=== PATIENT | male | born 1940 | race Caucasian/White ===

== ENCOUNTER 2022-04-10 21:43 | Inpatient (IN) ==
[2022-04-10 22:24] LABS: Basophils # (auto) 0.08 K/uL (0-0.2); Eosinophils # (auto) 0.38 K/uL (0-0.50); Eosinophils % (auto) 4.9 %; Hematocrit (blood only) 45.6 % (40.1-51.0); Hemoglobin 14.9 g/dl (14.0-18.0); Immature Granulocytes # (auto) 0.03 K/uL (0.00-0.02); Immature Granulocytes % (auto) 0.4 %; Lymphocytes # (auto) 1.11 K/uL (1.2-3.4); Lymphocytes % (auto) 14.2 %; Mean Corpuscular Hemoglobin 28.5 pg (25.0-34.0); Mean Corpuscular Hgb Conc 32.7 g/dL (32.0-36.0); Mean Corpuscular Volume 87.4 fL (80.0-100.0); Mean Platelet Volume 10.4 fL (9.4-12.4); Monocytes % (auto) 16.6 %; Neutrophils # (auto) 4.92 K/uL (1.4-6.5); Neutrophils % (auto) 62.9 %; Platelet Count 246 K/uL (130-400); RDW Standard Deviation 44.8 fL (36.4-46.3); Red Blood Count 5.22 M/uL (4.63-6.08); White Blood Count 7.82 K/ul (4.8-10.8)
[2022-04-10 22:34] LABS: Prothrombin Time 10.6 Seconds (9.0-12.0)
[2022-04-10 22:49] LABS: Albumin Globulin Ratio 1.4 (0.9-2); Albumin Level 4.2 gm/dl (3.4-5.0); BUN Creatinine Ratio 19.5 (10-20); Bilirubin,Total 0.5 mg/dl (0.2-1.0); Calcium 9.3 mg/dl (8.5-10.1); Creatinine Clr Calc Pharmacy 42.2 ml/min; Est GFR (African American) 61.3 ml/min; Est GFR (Non-African American) 52.9 ml/min; Globulin 3.1 gm/dl (2.5-4.0); Potassium 3.6 mmol/L (3.5-5.1); Total Protein 7.3 gm/dl (6.0-8.3)
--- NOTE | 2022-04-10 23:15 | Emergency Department Note ---
History of Present Illness General Chief complaint: Abdominal Pain Stated complaint: ABDOMINAL PAIN STEMMING UP TO CHEST Time Seen by Provider: 04/10/22 23:01 Source: patient Mode of arrival: ambulatory Limitations: no limitations History of Present Illness Provider complaint: abdominal pain Onset (ago): hour(s) 3 Radiation: extremity and proximal Maximum Pain Intensity: 2 Exacerbated By: + movement Associated symptoms: + shortness of breath Treatments prior to arrival: aspirin This is a 81-year-old male presents emergency department due to concern for abdominal pain. Patient states he was carrying a bench at his house and developed upper abdominal pain that seem to radiate upwards into his chest and into the left shoulder. Patient states he took an aspirin as a precaution and sat down and eventually the pain began to subside. He states pain has been intermittent since its onset but has not completely gone away. Patient denied nausea, vomiting, dizziness, or sweating. Patient states he does have a history of shortness of breath particular with exertion and did feel winded during this episode also. Patient does have prior cardiac history and doing including prior SD and placement of 2 coronary artery stents. No recent change in medications. Patient states he is supposed to be taking a low-dose aspirin daily but does not. No other use of antiplatelet or anticoagulation therapy. He denies any recent fevers, chills, cough, or other illness. States he recently abraded his left lower extremity, and he does have mild chronic b/l lower extremity edema. Pt seen during a time of high acuity and national emergency pandemic while wearing PPE. Home Medications Medication Instructions Recorded Confirmed Type amlodipine 10 mg tablet 10 mg PO DAILY 04/10/22 04/10/22 History atorvastatin 20 mg tablet 20 mg PO DAILY 04/10/22 04/10/22 History benazepril 20 mg tablet 20 mg PO DAILY 04/10/22 04/10/22 History calcium carbonate 200 mg calcium 400 mg PO DIRECTED PRN 04/10/22 04/10/22 History (500 mg) chewable tablet (Tums) HALL'S SYNDROME/HEARTBURN/INDIGESTION Allergies Allergy/AdvReac Type Severity Reaction Status Date / Time Penicillins Allergy Intermediate HANDS Verified 04/10/22 23:28 BECAME ITCHY Past Med/Surg History Medical History (Updated 04/12/22 @ 03:34 by Lynn Gallegos DO) AAA (abdominal aortic aneurysm) CAD (coronary atherosclerotic disease) History not obtained Hyperlipidemia Hypertension Myocardial infarct Surgical History (Updated 04/11/22 @ 08:34 by Haylie Herrmann DO) Status post vascular surgery Family History Other No family history of disorders Social History Smoking Status: Never smoker Tobacco Type: Cigarettes Hx Alcohol Use: Yes Alcohol type: wine Hx Substance Use: No Preferred Language: Mohawk Communication Ability: Effective Tray Delivery Aide Required: No Beliefs That Will Affect Care: None Current Living Situation: Spouse Feels Safe at Home: Yes Assistive Devices: None Review of Systems A total of 10 systems reviewed and were otherwise negative All systems reviewed & are unremarkable except as noted in HPI & below Physical Exam Vital Signs Vital Signs - 24 hr 04/10/22 21:49 04/10/22 23:33 04/11/22 00:00 Temperature 36.7 C Temperature Source Temporal Artery Scan Pulse Rate 77 80 85 Pulse Rate from SpO2 Sensor 70 62 Respiratory Rate 16 23 26 H Respiratory Effort / Characteristics Non-Labored Spontaneous Respiratory Depth Normal Blood Pressure 160/66 H Blood Pressure Mean 97 Pulse Oximetry 95 94 92 Oxygen Delivery Method Room Air Sepsis Recent Fever Within 48 Hours No Sepsis New/Unexplained Change in Mental Status No Sepsis Action Taken by Nursing No Action Required 04/11/22 00:10 04/11/22 00:10 04/11/22 00:30 Temperature Temperature Source Pulse Rate 82 76 Pulse Rate from SpO2 Sensor 68 73 Respiratory Rate 24 27 H Respiratory Effort / Characteristics Respiratory Depth Blood Pressure 154/83 H Blood Pressure Mean 106 Pulse Oximetry 91 91 Oxygen Delivery Method Sepsis Recent Fever Within 48 Hours Sepsis New/Unexplained Change in Mental Status Sepsis Action Taken by Nursing 04/11/22 01:03 04/11/22 01:30 Temperature Temperature Source Pulse Rate 78 74 Pulse Rate from SpO2 Sensor 78 73 Respiratory Rate 20 Respiratory Effort / Characteristics Respiratory Depth Blood Pressure Blood Pressure Mean Pulse Oximetry 93 94 Oxygen Delivery Method Sepsis Recent Fever Within 48 Hours Sepsis New/Unexplained Change in Mental Status Sepsis Action Taken by Nursing GENERAL: alert, well appearing, well nourished, no distress, non-toxic EYE EXAM: normal conjunctiva, PERRL and EOM's grossly intact OROPHARYNX: no exudate, no erythema, lips, buccal mucosa, and tongue normal and mucous membranes are moist NECK: supple, no nuchal rigidity, no adenopathy, non-tender LUNGS: Clear to auscultation. Normal chest wall mechanics, no w/r/r HEART: no murmurs, S1 normal and S2 normal, no reproducible chest wall tenderness ABDOMEN: abdomen soft, non-tender, normo-active bowel sounds, no masses, no re bound or guarding. BACK: Back is symmetrical on inspection and there is no deformity, no midline te nderness, no CVA tenderness. SKIN: no rashes and no bruising UPPER EXTREMITIES: upper extremities are grossly normal. FROM, nml pulses b/l. LOWER EXTREMITIES: No pitting edema. FROM, nml pulses b/l. NEURO EXAM: Normal sensorium, cranial nerves II-XII grossly intact, normal speech, no gross weakness of arms, no gross weakness of legs. Gross sensation intact. Course Course 0014: Case discussed with Dr. Herrmann for admission. No pain or discomfort at this time. Patient made aware of all results. Repeat EKG was performed and Nitropaste applied. Second troponin pending. 0115: Repeat troponin significantly elevated with the patient also found to be COVID-positive. Patient with no current symptoms or complaints. Will send for CT as a precaution due to significant vascular history and now accompanying COVID-positive status. 0232: A CODE BLUE was called overhead and I went to the room emergently. Patient with agonal respiration initial weak pulse. Patient however became less responsive, pulses were lost. BVM assisted ventilations were started and I placed an oral airway to help until additional airway intervention could be secured. CPR started, pads placed, and patient defibrillated. 1 round of ep inephrine given. Just prior to amio being given patient opened eyes, was trying to speak, and had palpable pulse and appeared to be in a normal sinus rhythm on telemetry. Oral airway removed, patient placed on supplemental oxygen and he was allowed to sit up. Patient moving all extremities and answering questions. No adventitious lung sounds on exam. Results of the CT were still pending at at time. Stat read contacted given critical nature. CTA of the chest was negative and Dr. Edgardo Shelton of interventional cardiology was contacted. Upon discussing patient's evolving symptoms and risk factors, a code heart was activated. Administered Medications Aspirin (Aspirin 81 Mg Ectab) 81 mg PO QAM [facility] Stop: 05/11/22 08:59 Last Admin: 04/11/22 07:40 Dose: 81 mg Documented By: KELVIN Atorvastatin Calcium (Atorvastatin 40 Mg Tab) 40 mg PO QAM [facility] Stop: 05/11/22 08:59 Last Admin: 04/11/22 07:40 Dose: 40 mg Documented By: KELVIN Guaifenesin (Guaifenesin 600 Mg Tabcr) 600 mg PO Q12 [facility] Stop: 05/11/22 20:59 Last Admin: 04/11/22 21:11 Dose: 600 mg Documented By: AKANKSHA Metoprolol Tartrate (Metoprolol Tartrate 25 Mg Tab) 12.5 mg PO BID [facility] Stop: 05/11/22 08:59 Last Admin: 04/11/22 20:08 Dose: 12.5 mg Documented By: Admin: 04/11/22 07:40 Dose: 12.5 mg Documented By: KELVIN Discontinued Medications Clopidogrel Bisulfate (Clopidogrel Bisulfate 300 Mg Tab) Confirm Administered Dose 600 mg .ROUTE .STK-MED ONE Stop: 04/11/22 04:10 Last Admin: 04/11/22 04:21 Dose: 600 mg Documented By: KARINA Fentanyl Citrate (Fentanyl Citrate 100 Mcg/2 Ml Vial) Confirm Administered Dose 100 mcg .ROUTE .STK-MED ONE Stop: 04/11/22 03:07 Last Admin: 04/11/22 04:19 Dose: 25 mcg Documented By: KARINA Heparin Sodium (Porcine) (Heparin Sod (Porcine) 1000 Unit/Ml) 1 units IV NOW ONE Stop: 04/11/22 03:04 Last Admin: 04/11/22 04:03 Dose: Not Given Documented By: KARINA Heparin Sodium (Porcine) (Heparin (Porcine) 1000 Unit/Ml 10 Ml ([facility] Use Only)) Confirm Administered Dose 10,000 units .ROUTE .STK-MED ONE Stop: 04/11/22 03:07 Last Admin: 04/11/22 04:19 Dose: 10,000 units Documented By: KARINA Heparin Sodium/Sodium Chloride (Heparin In Nss Infusion 1000 Unit/500 Ml (2 U/Ml) Bag) Confirm Administered Dose 3,000 units IV .STK-MED ONE Stop: 04/11/22 03:07 Last Admin: 04/11/22 04:02 Dose: 3,000 units Documented By: KEISHA Heparin Sodium/Dextrose (Heparin Sodium/Dextrose) 25,000 units in 500 mls @ 0.02 mls/hr IV .Q24H FABIAN; Protocol Stop: 05/11/22 03:14 Last Admin: 04/11/22 04:03 Dose: Not Given Documented By: KARINA Sodium Chloride (Nss 1000ml) 1,000 mls @ 100 mls/hr IV .Q10H FABIAN Stop: 04/11/22 09:44 Last Infusion: 04/11/22 15:30 Dose: 0 mls/hr Documented By: Admin: 04/11/22 05:26 Dose: 100 mls/hr Documented By: ALICJA Magnesium Sulfate/Dextrose (Magnesium Sulfate / D5w) 1 gm in 100 mls @ 50 mls/hr IV ONE ONE Stop: 04/11/22 06:48 Last Infusion: 04/11/22 08:10 Dose: 0 mls/hr Documented By: Admin: 04/11/22 05:27 Dose: 50 mls/hr Documented By: ALICJA Potassium Chloride (K Tristin / Wtr) 10 meq in 100 mls @ 100 mls/hr IV Q1H FABIAN; Protocol Stop: 04/11/22 06:59 Last Infusion: 04/11/22 09:40 Dose: 0 mls/hr Documented By: Admin: 04/11/22 07:24 Dose: 50 mls/hr Documented By: Infusion: 04/11/22 07:14 Dose: 50 mls/hr Documented By: Infusion: 04/11/22 05:38 Dose: 50 mls/hr Documented By: Admin: 04/11/22 05:26 Dose: 100 mls/hr Documented By: ALICJA Ioversol (Optiray 320 125ml) 125 ml IV ONCE ONE Stop: 04/11/22 01:59 Last Admin: 04/11/22 01:58 Dose: 118 ml Documented By: RUTHY Midazolam HCl (Midazolam Hcl 1 Mg/Ml 2ml Vial) Confirm Administered Dose 2 mg .ROUTE .STK-MED ONE Stop: 04/11/22 03:07 Last Admin: 04/11/22 04:19 Dose: 1 mg Documented By: KARINA Miscellaneous (Rapid Sequence Induction Bag) Confirm Administered Dose 1 each .ROUTE .STK-MED ONE Stop: 04/11/22 03:28 Last Admin: 04/11/22 04:20 Dose: Not Given Documented By: KML Nicardipine HCl (Nicardipine Hcl Inj 2.5 Mg/Ml 10 Ml Amp) Confirm Administered Dose 25 mg .ROUTE .STK-MED ONE Stop: 04/11/22 03:07 Last Admin: 04/11/22 04:02 Dose: 25 mg Documented By: KEISHA Nitroglycerin (Nitroglycerin 2% Ointment 30gm Tube) 1 inch EXT NOW STA Stop: 04/11/22 00:01 Last Admin: 04/11/22 00:08 Dose: 1 inch Documented By: LEESA Nitroglycerin/Dextrose (Nitroglycerin/D5w 100mcg/Ml 20ml Syr) Confirm Administered Dose 2,000 mcg .ROUTE .STK-MED ONE Stop: 04/11/22 03:07 Last Admin: 04/11/22 04:02 Dose: 2,000 mcg Documented By: KEISHA Critical Care Time Critical Care Time: Yes Total Critical Care Time: 68 Critical care of 68 min performed to assess and manage high likelihood of life- threatening , involving labs and imaging performed with assessment to evaluate XX diagnosis] with frequent reassessment. This time includes bedside time, treatment discussions with patient/family/consultants, documentation time and excludes procedure time. Medical Decision Making Differential Diagnosis Differential diagnoses includes but is not limited to gastritis, peptic ulcer disease, GERD, gallbladder disease, pancreatitis, small bowel obstruction, acute coronary syndrome, pericarditis, ischemic bowel, irritable bowel disease, irritable bowel syndrome, appendicitis, diverticulitis, malignancy, hernia, urinary tract infection, torsion, [/ectopic (if female)], perforation, trauma, infectious. Medical Records Attestation: I reviewed the patient's medical records. Home Medications Current Medication List: was personally reviewed by me Laboratory Data Attestation: I reviewed the patient's lab results. Result diagrams: 04/11/22 07:23 04/11/22 07:23 Lab Results 04/10/22 04/10/22 04/10/22 Range/Units 22:02 22:02 22:02 WBC 7.82 (4.8-10.8) K/ul RBC 5.22 (4.63-6.08) M/uL Hgb 14.9 (14.0-18.0) g/dl Hct 45.6 (40.1-51.0) % MCV 87.4 (80.0-100.0) fL MCH 28.5 (25.0-34.0) pg MCHC 32.7 (32.0-36.0) g/dL RDW Std Deviation 44.8 (36.4-46.3) fL RDW Coeff of [place] 14.0 (11.5-14.5) % Plt Count 246 (130-400) K/uL MPV 10.4 (9.4-12.4) fL Immature Gran % (Auto) 0.4 % Neut % (Auto) 62.9 % Lymph % (Auto) 14.2 % [place] % (Auto) 16.6 % Eos % (Auto) 4.9 % Baso % (Auto) 1.0 % Neut # (Auto) 4.92 (1.4-6.5) K/uL Lymph # (Auto) 1.11 L (1.2-3.4) K/uL [place] # (Auto) 1.30 H (0.24-0.82) K/uL Eos # (Auto) 0.38 (0-0.50) K/uL Baso # (Auto) 0.08 (0-0.2) K/uL Immature Gran # (Auto) 0.03 H (0.00-0.02) K/uL PT 10.6 (9.0-12.0) Seconds INR 1.0 (0.9-1.1) Sodium 139 (136-145) mmol/L Potassium 3.6 (3.5-5.1) mmol/L Chloride 106 (98-107) mmol/L Carbon Dioxide 23 (21-32) mmol/L Anion Gap 10 (3-11) BUN 25 H (6-23) mg/dl Creatinine 1.28 (0.6-1.4) mg/dl Est Cr Clr Drug Dosing 42.2 ml/min Est GFR ( Amer) 61.3 ml/min Est GFR (Non-Af Amer) 52.9 ml/min BUN/Creatinine Ratio 19.5 (10-20) Glucose 109 H (70-99(Fasting)) mg/dl Calcium 9.3 (8.5-10.1) mg/dl Magnesium (1.7-2.4) mg/dl Total Bilirubin 0.5 (0.2-1.0) mg/dl AST 37 (13-39) U/L ALT 39 (7-52) U/L Alkaline Phosphatase 78 (34-104) U/L Troponin I High Sens 105.0 H* (0-20) pg/ml Total Protein 7.3 (6.0-8.3) gm/dl Albumin 4.2 (3.4-5.0) gm/dl Globulin 3.1 (2.5-4.0) gm/dl Albumin/Globulin Ratio 1.4 (0.9-2) Lipase 30 (11-82) U/L SARS-CoV-2, RNA, NAAT (NEGATIVE) 04/10/22 04/11/22 04/11/22 Range/Units 22:02 00:00 00:05 WBC (4.8-10.8) K/ul RBC (4.63-6.08) M/uL Hgb (14.0-18.0) g/dl Hct (40.1-51.0) % MCV (80.0-100.0) fL MCH (25.0-34.0) pg MCHC (32.0-36.0) g/dL RDW Std Deviation (36.4-46.3) fL RDW Coeff of [place] (11.5-14.5) % Plt Count (130-400) K/uL MPV (9.4-12.4) fL Immature Gran % (Auto) % Neut % (Auto) % Lymph % (Auto) % [place] % (Auto) % Eos % (Auto) % Baso % (Auto) % Neut # (Auto) (1.4-6.5) K/uL Lymph # (Auto) (1.2-3.4) K/uL [place] # (Auto) (0.24-0.82) K/uL Eos # (Auto) (0-0.50) K/uL Baso # (Auto) (0-0.2) K/uL Immature Gran # (Auto) (0.00-0.02) K/uL PT (9.0-12.0) Seconds INR (0.9-1.1) Sodium (136-145) mmol/L Potassium (3.5-5.1) mmol/L Chloride (98-107) mmol/L Carbon Dioxide (21-32) mmol/L Anion Gap (3-11) BUN (6-23) mg/dl Creatinine (0.6-1.4) mg/dl Est Cr Clr Drug Dosing ml/min Est GFR ( Amer) ml/min Est GFR (Non-Af Amer) ml/min BUN/Creatinine Ratio (10-20) Glucose (70-99(Fasting)) mg/dl Calcium (8.5-10.1) mg/dl Magnesium 1.9 (1.7-2.4) mg/dl Total Bilirubin (0.2-1.0) mg/dl AST (13-39) U/L ALT (7-52) U/L Alkaline Phosphatase (34-104) U/L Troponin I High Sens 1460.6 H* D (0-20) pg/ml Total Protein (6.0-8.3) gm/dl Albumin (3.4-5.0) gm/dl Globulin (2.5-4.0) gm/dl Albumin/Globulin Ratio (0.9-2) Lipase (11-82) U/L SARS-CoV-2, RNA, NAAT POSITIVE A* (NEGATIVE) Imaging Data My Impression: X-ray: I interpreted the following studies. Chest: A single view study of the chest was reviewed and was negative for cardiomegaly, focal infiltrate, effusion, pulmonary edema, or wide mediastinum. Radiologist's Impression: Chest X-Ray 04/10/22 22:04 XR chest 1V portable HISTORY: epigastric pain COMPARISON: None. FINDINGS: Mild emphysema. Interstitial thickening at the lung bases likely represents vascular crowding from the emphysematous change. No focal lung consolidations to suggest pneumonia. No evidence for pulmonary edema. The heart is normal in size. This mildly tortuous thoracic aorta. IMPRESSION: Emphysema. Otherwise, no acute process within the chest. ACT 112: Negative or not required by law. Electronically signed by: Pola Davis M.D. 04/11/2022 8:10 AM CTA chest: No pulmonary artery filling defects to suggest pulmonary artery thrombosis. No thoracic aortic aneurysm or dissection is present. Atherosclerotic aortic and coronary artery calcifications. Heart is mildly enlarged. No evidence for right heart strain. No pericardial fluid or thickening. Mild bilateral dependent atelectasis. Diffuse emphysematous changes. No definite lobar pneumonia. No pleural effusion or pneumothorax. Subcentimeter mediastinal lymph nodes. No acute fractures identified. Degenerative changes of thoracic spine. Radiologist: Sedrick Xie MD CT abdomen and pelvis with contrast: No prior study available. Status post abdominal aortic aneurysm repair with a infrarenal aortic stent extending to both common iliac arteries. Abdominal aort a and iliac arteries are patent without evidence for occlusion or dissection. No significant stenosis. No evidence for rupture or extravasation. The celiac, superior mesenteric artery and bilateral renal arteries are grossly patent although this is not a CT angiogram. Inferior mesenteric artery is not well characterized. Mild atherosclerotic vascular calcifications. No bowel obstruction or ileus. Nonspecific abnormal caliber fluid-filled small bowel with few air-fluid levels and mild wall thickening, possibly a mild enteritis. Nonobstructing proximal sigmoid colon containing left inguinal hernia without proximal dilatation. No evidence for appendicitis. Few colonic diverticuli without evidence for diverticulitis. No free fluid. No free intraperitoneal gas. No evidence for portal venous gas. Liver is unremarkable. Gallbladder is unremarkable and without gallstones. No evidence for biliary ductal dilatation. Pancreas is unremarkable. Spleen is unremarkable. No obstructive uropathy. Right kidney is atrophic. Renal vascular calcifications. Probable right urinary bladder diverticulum. Urinary bladder otherwise unremarkable. Prostate gland is normal in size. Spine degenerative changes. Radiologist: Sedrick Xie MD ECG Data Attestation: I personally reviewed and interpreted this ECG as follows: Indication: + chest pain Rate (beats per minute): 90 Rhythm: + normal sinus ECG Intervals/blocks: + Normal QRS and + Normal QT ECG [place]: + Left axis deviation ECG ST segments: + Nonspecific ST abnormalities ECG Findings: + PVCs MDM Narrative An order was placed for continuous cardiac monitoring. The monitor shows a rate of _62__ with _normal sinus__ rhythm. This is a 81-year-old male who presents emergency room due to concern for abdominal pain that began while he was lifting a bench. Symptoms had resolved by time of arrival. Family who presents with him was concerned for possible heart related issue given his prior history of SD and 2 stents. Patient also has vascular history and repair of prior AAA. Patient who presented on day of high volume and acuity and protocols were placed by nursing staff in the waiting room. Upon the troponin resulting elevated, he was immediately brought back to the next open bed. Patient had aspirin at home prior to coming to the ER. He was afebrile and hemodynamically stable. EKG was unremarkable. There were no other priors available for comparison as patient is from out of town. Patient did have a recurrent episode of abdominal pain and a repeat EKG was performed. This did not show any acute changes. Pain resolved with application of nitro. Patient's other labs are reassuring and he was admitted to the hospitalist. Repeat trop added as a precaution and patient sent for CT imaging due to significant vascular history. While awaiting results of CT, patient became unresponsive. Weak pulse initially detected then no pulse and CPR/ACLS was started. On patient placed on monitor, patient noted to be in V. fib. He was defibrillated once, given epi. I placed an oral airway and RT helped with assisted ventilations with a BVM. Patient then began to breathe spontaneously and move. Recheck on the monitor showed an organized rhythm and a palpable pulse. Compressions were stopped. Blood pressure cuff cycled. Repeat EKG pe rformed and patient sat up and began talking and seemed neurologically intact. He denied any recurrent abdominal pain, denied chest pain, denied any trouble breathing. Repeat vitals were stable. At this point Case was discussed with on-call interventional cardiology, Dr. Shelton, who agreed with plan for heart alert activation. Patient remained stable until cath team and Dr. Shelton arrived. Patient transported to the [facility] for intervention. Impression & Plan Abdominal pain, Elevated troponin, Cardiac arrest with ventricular fibrillation Discharge Plan Visit Data Chief Complaint: Abdominal Pain Stated Complaint: ABDOMINAL PAIN STEMMING UP TO CHEST ED Provider: Lynn Gallegos Discharge Problem: Abdominal pain, Elevated troponin, Cardiac arrest with ventricular fibrillation Patient Disposition: Admitted As Inpatient Discharge Instructions Interventions: ED Discharge Assessment Last Done: 04/11/22 02:19
[2022-04-11] MEDS ORDERED: NITROGLYCERIN 2% OINTMENT 30GM TUBE EXT STA
[2022-04-11] MEDS ORDERED: OPTIRAY 320 125ml IV ONE (01:58)
[2022-04-11] MEDS ORDERED: POLYETHYLENE (MIRALAX) 17 GM PACK PO PRN (02:15)
[2022-04-11] MEDS ORDERED: ACETAMINOPHEN 325 MG TAB PO PRN (02:15)
[2022-04-11] MEDS ORDERED: Heparin IV Adult Wt-Based Low-Dose WITH Bolus Protocol STA (02:48)
--- NOTE | 2022-04-11 02:54 | History & Physical Report ---
Date of Service April 11, 2022 Assessment & Plan (1) Ventricular fibrillation: Plan: 2/2 ACS. Taken to labor commissioner and found to have a 100% moderate mid right PDA occlusion. A single drug-eluting stent was placed. Sent to ICU for continued monitoring and trend troponin until peak. Echocardiogram in a.m. Loaded with clopidogrel 600 mg in [place]p [place] and continue dual antiplatelet therapy for at least 1 year. Beta-jaun was started and titrate as blood pressure allows. (2) ACS (acute coronary syndrome): Plan: Plan as above (3) Cardiac arrest: Plan: CODE BLUE while in the ER after patient went into ventricular fibrillation. He received 1 shock and amiodarone 150 mg. He was placed on BiPAP and heart alert was initiated. (4) COVID: Plan: Asymptomatic and this is an incidental finding. No indication for COVID- specific therapies at this time. Continue isolation. (5) Hypertension: Plan: Hold amlodipine and Benzepril for now and add back slowly. Start metoprolol tartrate per cardiology. (6) Hyperlipidemia: Plan: Continue risk factor modification, Lipitor 20 increased to 40 mg daily. (7) DVT prophylaxis: Plan: Lovenox Full Dispo-pending cardiology clearance. Currently in the ICU. Haylie Herrmann DO [facility] Admission and Anticipated Discharge Date Admission Date: April 11, 2022 History of Present Illness Chief Complaint: abdominal pain Primary Care Provider: NO PCP 81 yo M presented with abdominal discomfort. He was carrying a bench at his home and developed upper abdominal pain that radiated upwards into his chest and to the left shoulder. He took an aspirin as a precaution and rested with the pain subsiding. Intermittent chest pain reported. Denied associated symptoms except did have some shortness of breath. Has a history of CAD with two cardiac stents. Noncompliant with prescribed aspirin. In the ER, initial troponin was 105 with repeat going to 1460. EKG revealed SR with frequent PVCs aat a rate of 92 bpm. There were ?q waves in inferior leads but no ST elevation. A CT angio of the chest was performed and negative for PE, pneumonia or fluid with no TAA or dissection. Atherosclerotic disease in aorta and coronaries was seen. There were subcm mediastinal lymph nodes present and he is COVID positive. While in the ER, he went into vfib arrest and required defibrillation and CPR, achieving ROSC after a few minutes. A heart alert was called and he is going to the labor commissioner. With the activity of the night, I was unable to speak with him and gather information. Historical information was gathered from the record and the ER physician. Family is also extremely upset and unable to give a history at this time. I saw him post procedure and he is doing well, recovering in the ICU. Mental status is clear. He denies any chest pain or SOB. No abdominal pain or other issues at this time. Lives in [place], [place] for most of the year. Allergies Allergy/AdvReac Type Severity Reaction Status Date / Time Penicillins Allergy Intermediate HANDS Verified 04/10/22 23:28 BECAME ITCHY Home Medications Medication Instructions Recorded Confirmed Type amlodipine 10 mg tablet 10 mg PO DAILY 04/10/22 04/10/22 History atorvastatin 20 mg tablet 20 mg PO DAILY 04/10/22 04/10/22 History benazepril 20 mg tablet 20 mg PO DAILY 04/10/22 04/10/22 History calcium carbonate 200 mg calcium 400 mg PO DIRECTED PRN 04/10/22 04/10/22 History (500 mg) chewable tablet (Tums) HALL'S SYNDROME/HEARTBURN/INDIGESTION Past Med/Surg History Medical History AAA (abdominal aortic aneurysm) CAD (coronary atherosclerotic disease) History not obtained Hyperlipidemia Hypertension Myocardial infarct Surgical History (Updated 04/11/22 @ 08:34 by Haylie Herrmann DO) Status post vascular surgery Family History Other No family history of disorders Social History Smoking Status: Former smoker Tobacco Type: Cigarettes Hx Alcohol Use: Yes Alcohol type: wine Hx Substance Use: No Preferred Language: Bulgarian Communication Ability: Effective 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 Physical Exam Physical Exam: CONSTITUTIONAL: WNWD, vitals as above, generally well- appearing, NAD EYES: normal conjunctivae, no scleral icterus ENT: external ear and nose normal, MMM NECK: trachea midline RESPIRATORY: clear to auscultation bilaterally, no crackles, rales or wheezes, normal respiratory effort CARDIOVASCULAR: regular rate and rhythm, S1 and 2 heard without murmurs, gallops or rubs, no JVD, no peripheral edema, CHEST: inspection of chest was normal GASTROINTESTINAL: soft, nontender, ND, no guarding MUSCULOSKELETAL: strength 5/5 throughout, head is normocephalic and atraumatic, SKIN: warm and dry, TR band on right wrist. warm and well perfused NEUROLOGIC: CN 2-12 grossly intact, no sensory deficit, normal cognition, normal speech, no tremor PSYCHIATRIC: alert cooperative and oriented to person, place and time. Results & Data Results & Data ([facility]) Vital Signs (Past 12 Hours) Vital Signs Temp Pulse Resp BP Pulse Ox O2 Del Method 04/11/22 02:15 68 25 H 91 04/11/22 02:15 68 20 127/74 94 04/11/22 02:00 67 29 H 93 04/11/22 01:30 74 94 04/11/22 02:19 Room Air 04/11/22 01:03 78 20 93 04/11/22 00:30 76 27 H 91 04/11/22 00:10 154/83 H 04/11/22 00:10 82 24 91 04/11/22 00:00 85 26 H 92 04/10/22 23:33 80 23 94 04/10/22 21:49 36.7 C 77 16 160/66 H 95 Room Air Laboratory Results Short CBC 04/10/22 Range/Units 22:02 WBC 7.82 (4.8-10.8) K/ul Hgb 14.9 (14.0-18.0) g/dl Hct 45.6 (40.1-51.0) % Plt Count 246 (130-400) K/uL BMP 04/10/22 22:02 Sodium 139 Potassium 3.6 Chloride 106 Carbon Dioxide 23 BUN 25 H Creatinine 1.28 Glucose 109 H Calcium 9.3 Liver Function 04/10/22 Range/Units 22:02 Total Bilirubin 0.5 (0.2-1.0) mg/dl AST 37 (13-39) U/L ALT 39 (7-52) U/L Alkaline Phosphatase 78 (34-104) U/L Albumin 4.2 (3.4-5.0) gm/dl Medications Administered Current Inpatient Medications Acetaminophen (Acetaminophen 325 Mg Tab) 650 mg PO Q4H PRN PRN Reason: Pain or Fever Stop: 05/11/22 02:14 Heparin Sodium (Porcine) (Heparin Sod (Porcine) 1000 Unit/Ml) 1 units IV NOW ONE Stop: 04/11/22 03:04 Heparin Sodium/Dextrose (Heparin Iv Adult Wt-Based Low-Dose With Bolus Protocol) each N/A NOW STA; Protocol Stop: 04/11/22 02:49 Heparin Sodium/Dextrose (Heparin Sodium/Dextrose) 25,000 units in 500 mls @ 0.02 mls/hr IV .Q24H FABIAN; Protocol Stop: 05/11/22 03:14 Polyethylene Glycol (Polyethylene (Miralax) 17 Gm Pack) 17 gm PO DAILY PRN PRN Reason: Constipation Stop: 05/11/22 02:14 Code Status & VTE Plan VTE Prophylaxis Plan VTE Prophylaxis will be ordered: Yes
[2022-04-11] MEDS ORDERED: HEPARIN SOD (PORCINE) 1000 UNIT/ML IV ONE (03:03)
[2022-04-11] MEDS ORDERED: fentaNYL citrate 100 MCG/2 ML VIAL ONE (03:06)
[2022-04-11] MEDS ORDERED: HEPARIN (PORCINE) 1000 UNIT/ML 10 ML (CATH LAB USE ONLY) ONE (03:06)
[2022-04-11] MEDS ORDERED: NITROGLYCERIN/D5W 100MCG/ML 20ML SYR ONE (03:06)
[2022-04-11] MEDS ORDERED: MIDAZOLAM HCL 1 MG/ML 2ML VIAL ONE (03:06)
[2022-04-11] MEDS ORDERED: niCARdipine HCL INJ 2.5 MG/ML 10 ML AMP ONE (03:06)
[2022-04-11] MEDS ORDERED: HEPARIN SODIUM/DEXTROSE 25,000 UNITS/500 ML BAG IV SCH (03:15)
--- NOTE | 2022-04-11 03:21 | Pre Anesthesia Assessment ---
Date of Service April 11, 2022 Pre Sedation Assessment Vital Signs Temp Pulse Resp BP Pulse Ox O2 Del Method FiO2 04/11/22 02:39 73 25 H 99 100 04/11/22 02:15 68 25 H 91 04/11/22 02:15 68 20 127/74 94 04/11/22 02:00 67 29 H 93 04/11/22 01:30 74 94 04/11/22 02:19 Room Air 04/11/22 01:03 78 20 93 04/11/22 00:30 76 27 H 91 04/11/22 00:10 154/83 H 04/11/22 00:10 82 24 91 04/11/22 00:00 85 26 H 92 04/10/22 23:33 80 23 94 04/10/22 21:49 98.1 F 77 16 160/66 H 95 Room Air Cardiovascular RRR, no murmur, no edema Respiratory normal respiratory effort, lungs clear to auscultation Pre-Sedation Airway Assessment Smoking Status: Former smoker Hx Sleep Apnea: No Hx Difficult Intubation: No Short, Thick Neck: No Thyromental Distance: > or= 3.5 Finger Breadths Oral Cavity: + WNL Mallampati Class: III ASA: ASA4 Procedure Planning Contraindications for Sedation: none Current Medications Reviewed: Yes Notes The planned sedation has been discussed with the patient. Informed Consent was obtained. I have identified the patient, determined the appropriateness of sedation and have assessed the patient immediately prior to the procedure. All medicine(s) and interventions are by my order.
[2022-04-11] MEDS ORDERED: RAPID SEQUENCE INDUCTION BAG ONE (03:27)
--- NOTE | 2022-04-11 03:28 | Cardiology Consultation ---
Date of Consultation April 11, 2022 Assessment & Plan (1) ACS (acute coronary syndrome): Plan Presentation concerning for high risk ACS complicated by brief VF arrest and recommend proceeding with urgent cardiac catheterization and possible PCI. No apparent contraindications to procedure. Discussed risks, benefits, alternatives of procedure with patient and they are willing to proceed. Further recommendations pending findings of coronary angiography. History of Present Illness Attending Physician: Haylie Herrmann DO History of Present Illness 81-year-old man here with exertional chest pain and suspected ACS. Patient seen emergently in the ED after heart alert activated following VF arrest in ED. Past cardiac history remarkable for coronary artery disease post PCI with 2 remote stents in [place] (>10 years ago). Cardiac risk factors include hypertension, dyslipidemia. Also with history of AAA post EVAR. Patient lives majority of time in [place]. Up spending adkins in the area. Today had new stuttering exertional chest pain prompting him to come to the ED around 10 PM. Initial ECG showed sinus rhythm with PVCs, possible old inferior infarct without ST abnormalities. Initial HsTrop 100, second up to 1400. COVID test positive. Approximately 2:20 AM patient endorsed feeling dizzy before going into VF. Received CPR and single shock before ROSC. Given single dose of amiodarone and placed on BiPAP. Post arrest ECG showed sinus rhythm with occasional PVCs and inferior ST elevations as well as subtle ST elevations in V2 through V5. Postarrest patient chest pain-free and feeling at baseline. Allergies Allergy/AdvReac Type Severity Reaction Status Date / Time Penicillins Allergy Intermediate HANDS Verified 04/10/22 23:28 BECAME ITCHY Home Medications Medication Instructions Recorded Confirmed Type amlodipine 10 mg tablet 10 mg PO DAILY 04/10/22 04/10/22 History atorvastatin 20 mg tablet 20 mg PO DAILY 04/10/22 04/10/22 History benazepril 20 mg tablet 20 mg PO DAILY 04/10/22 04/10/22 History calcium carbonate 200 mg calcium 400 mg PO DIRECTED PRN 04/10/22 04/10/22 History (500 mg) chewable tablet (Tums) HALL'S SYNDROME/HEARTBURN/INDIGESTION Patient History Medical History (Updated 04/11/22 @ 02:52 by Haylie Herrmann DO) AAA (abdominal aortic aneurysm) CAD (coronary atherosclerotic disease) History not obtained Hyperlipidemia Hypertension Myocardial infarct Social History Smoking Status: Former smoker Tobacco Type: Cigarettes Feels Safe at Home: Yes Review of Systems Review of Systems: All systems reviewed & are unremarkable except as noted in HPI & below Physical Exam Physical Exam: General: Comfortable HEENT: Sclerae anicteric Lungs: Clear to auscultation bilaterally, no crackles or wheezes Cardiac: Regular rate and rhythm, no murmurs. Vascular: 2+ radial Abdomen: Soft, nontender Extremities: Well perfused, no peripheral edema Neuro: Nonfocal Psych: Alert orient x3, normal affect and mood Results & Data ([facility]) Vital Signs (Past 12 Hours) Vital Signs Temp Pulse Resp BP Pulse Ox O2 Del Method FiO2 04/11/22 02:39 73 25 H 99 100 04/11/22 02:15 68 25 H 91 04/11/22 02:15 68 20 127/74 94 04/11/22 02:00 67 29 H 93 04/11/22 01:30 74 94 04/11/22 02:19 Room Air 04/11/22 01:03 78 20 93 04/11/22 00:30 76 27 H 91 04/11/22 00:10 154/83 H 04/11/22 00:10 82 24 91 04/11/22 00:00 85 26 H 92 04/10/22 23:33 80 23 94 04/10/22 21:49 98.1 F 77 16 160/66 H 95 Room Air PG Care Time/CCT Total # of Minutes Spent Total Time Spent with Patient: Total time spent is greater than 50% in coordination of care (as documented) at patient's floor/unit and/or counseling patient: Coding Level of Care Code 61445 Initial Inpt Care Lvl 3 Diagnoses ACS (acute coronary syndrome) I24.9
[2022-04-11] MEDS ORDERED: CLOPIDOGREL BISULFATE 300 MG TAB ONE (04:09)
--- NOTE | 2022-04-11 04:36 | Post Anesthesia Assessment ---
Date of Service April 11, 2022 Post Sedation Assessment Vital Signs Temp Pulse Resp BP Pulse Ox O2 Del Method FiO2 04/11/22 03:00 64 26 H 99 04/11/22 02:56 100/68 04/11/22 02:56 67 24 04/11/22 02:30 87 04/11/22 02:39 73 25 H 99 100 04/11/22 02:15 68 25 H 91 04/11/22 02:15 68 20 127/74 94 04/11/22 02:00 67 29 H 93 04/11/22 01:30 74 94 04/11/22 02:19 Room Air 04/11/22 01:03 78 20 93 04/11/22 00:30 76 27 H 91 04/11/22 00:10 154/83 H 04/11/22 00:10 82 24 91 04/11/22 00:00 85 26 H 92 04/10/22 23:33 80 23 94 04/10/22 21:49 98.1 F 77 16 160/66 H 95 Room Air Recovery Score Activity: Moves 4 extremities Respiration: Deep Breath/Cough Circulation: +/-20% PreAnes Value Consciousness: Fully Awake Oxygen Saturation: O2 needed for >90% Discharge Sedation Level of Care: Fast Track Phase II Post Sedation Plan On clinical assessment, the patient appears to have tolerated the sedation without complications. Patient is recovering as anticipated. Patient will continue to be monitored by nursing and may be discharged when sedation discharge criteria are met per below protocol. Upon Completions of procedure up to 15 minutes continue every 5 minute vital signs and the P.A.R. score; then discharge to a Phase I or Fast Track to Phase II per the following guidelines: * Discharge Patient to appropriate Phase II area if PAR is 8 or greater or return to pre- procedure baseline. The post - procedure orders will be as directed. * If PAR score is less than 8 or not return to pre-procedure baseline then patient will follow Phase I monitoring till PAR is reached for Phase II. The Phase I may be done in procedure room or may call to secure a Phase I area. * If naloxone or flumazenil are used for reversal, hold in Phase I for continued monitoring from when last reversal dose was given for a minimum of 60 minutes or longer pending the nurse and/or physician discretion of patient condition before discharge to Phase II. Please call the Sedation Physician to re-evaluate and complete post-note for discharge to Phase II area. Do NOT discharge from procedure sedation or Phase 1 until post- sedation evaluation note is complete by procedure /sedation MD Sedation Discharge Instructions to be given to the patient at discharge to home.
[2022-04-11] MEDS ORDERED: SODIUM CHLORIDE 0.9% 1000ML 1,000 ML IV SCH (04:45)
[2022-04-11] MEDS ORDERED: MAGNESIUM SULFATE / D5W 1 GM/100 ML BAG IV ONE (04:49)
--- NOTE | 2022-04-11 04:49 | Cardiac Catheterization ---
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 Cardiac Status Clinical evaluation leading to the procedure CAD Presenation: STEMI Anginal Classification: CCS IV Diagnostic Physicians Name: Delano Shelton MD Closure Device Recommendations: PCI without planned CABG Cardiac Cath Procedure Full Procedure Date April 11, 2022 Pre-Procedure Diagnosis Pre-Procedure Diagnosis: STEMI and Arrhythmia AUC Score AUC Score: 9 Post-Procedure Diagnosis Post-Procedure Diagnosis: Severe CAD, Successful PCI and Normal Intracardiac Pressures Procedure(s) Performed Procedure(s) Performed: Coronary Angiography, Left Heart Cath and Drug Eluting Stent Parts Chaser Delano Shelton MD Grease Packer(s) Cotton Jammer Estimated Blood Loss Estimated Blood Loss: 10 Medication(s) Medication(s): Clopidogrel, Fentanyl, Heparin, Lidocaine 1%, Nicardipine and Versed Summary of Findings Indication: High risk ACS. VF arrest in ED with ROSC after defibrillation x1 Access: 6 Fr right radial artery Catheters: Carroll, JR4 guide Findings: LM -calcified, normal caliber, 20% ostial stenosis LAD -medium caliber, 40% earlymid extending across takeoff of small D2. Remainder of LAD without significant disease. 30% proximal large D1, medium D3 without disease. Circumflex -medium caliber, no significant disease. Medium OM 2 without disease. RCA -dominant, large caliber vessel, heavily calcified, patent proximal stent with 40-50% stenosis in earlymid RCA. Medium RPDA 50% ostial with ROEL I flow and mid 100% occlusion. Posterior AV branch, large bifurcating distal PLB without significant disease. LVEDP -15 -- PCI -- Antithrombotic therapy: Heparin, clopidogrel Procedure: RCA cannulated with JR4 guide Pre-procedure flow ROEL 0 in distal PDA Mid Level Clinician 50 wire passed across PDA lesion into distal vessel Mid PDA lesion predilated with 2.0 compliant balloon Dilated lesion stented with 2.25 x 15 mm Osvaldo drug-eluting stent Stent post-dilated with stent balloon IC vasodilators administered for spasm Post procedure ROEL 3 flow, stent well expanded with minimal residual stenosis and no apparent cardiac complications. Arterial Closure: TR band Summary: 1. Acute 100% mid right PDA occlusion 2. Mild to moderate nonculprit CAD -Patent proximal RCA stent, 40-50% earlymid RCA, 50% ostial RPDA 40% mid LAD, 30% proximal large D1 2. Normal intracardiac filling pressure 3. Successful PCI of mid RPDA with single drug-eluting stent (2.25 x 15 mm [place]). Recommendations: To ICU for continued monitoring Trend troponin until peak, echocardiogram in a.m. 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 Hemodynamics Rest Ao:: 78/48/70 Final Ao: 99/54/72 LV: 85/15 Recommendations Recommendations: PCI without planned CABG Specimens Specimens: None Radiation Exposure (mGy) 1962 Contrast (mls) 70 Anesthesia Moderate 5595-2118 Procedural Complication(s) None Disposition ICU I attest to the content of the Intraoperative Record and any orders documented therein. Any exceptions are noted below. [facility] Card Cath Procedure Codes Cardiac Catheterization Procedure 1: Cardiovascular Cath Procedures: 38118 Coronaries and LHC (+/-LV) Moderate Sedation Procedure 1: Sedation/Anesthesia: 01880 Mod Sedation by the same physician;Init15 Min Child Age 5 & Up Procedure 2: Sedation/Anesthesia: 93761 Mod Sedation by the same physician; Ea [id number] Minutes Stenting Procedure 1: Cardiovascular Stent Procedures: 56111 Perc transluminal revascularization of acute sub/total occl, aMI PG Care Time/CCT Total # of Minutes Spent Total Time Spent with Patient: Total time spent is greater than 50% in coordination of care (as documented) at patient's floor/unit and/or counseling patient:
[2022-04-11] MEDS: POTASSIUM CHLORIDE / WTR 10 MEQ/100 ML PLCT IV SCH ×2 (05:26→07:24)
--- NOTE | 2022-04-11 06:11 | Critical Care Consultation ---
Date of Consultation April 11, 2022 Assessment & Plan (1) Cardiac arrest: Reason Critically Ill: 81-year-old male presents to the ICU following ACS with V. fib cardiac arrest in which ROSC was achieved with defibrillation and CPR. He is now status post PCI with WALLACE x1 to [facility] Neuro - CAM ICU: Negative No evidence of anoxic deficit following cardiac arrest Cardiac - Cardiac arrestROSC achieved with 1 round CPR and defibrillation. Patient awoke after ROSC was achieved and did not require intubation. Currently hemodynamically stable. Repleting electrolytes. ACS likely culprit for V. fib. Continue to monitor on telemetry for now ACS/CADstatus post successful PCI of mid RPDA with WALLACE x1 -History of OH with stent x2 approximately 10 years ago -Admitted to ICU for further monitoring -Follow-up echo -Trend troponins repeat -Loaded with clopidogrel -ASA, Plavix, BB -Follow cardiology recommendations Respiratory - Currently maintaining oxygen saturation on nasal cannula. Was temporarily on BiPAP following cardiac arrest but now weaned. Continuous monitoring on pulse ox. Wean oxygen as tolerated GI - Heart healthy diet RENAL/LYTES - Creatinine within normal limit. Monitor routine BMPs and replete electrolytes as indicated -strict I's and O's ENDO - No history of diabetes or thyroid disease ICU hyperglycemic protocol HEME - H&H stable monitor routine CBCs ID - No indication for infectious process at this time Patient did test positive for COVID on PCR but claims symptoms started 4 weeks ago. Was unaware he was positive. -No evidence of active disease at this time. We will keep on precautions for now and monitor LINES/IV ACCESS - Peripheral IVs DVT PROPHYLAXIS - SCDs I have personally spent 40 minutes of critical care time in the direct management of this patient. This is a life/limb threatening event. This includes time spent evaluating patient, direct bedside care, chart review, placing orders, interpretation of diagnostic studies, discussion with consultants, patient, and family members, as well as other required patient management activities. This time is exclusive of all separately billable procedures, and teaching time and separate from and in addition to any other critical care service time. Thank you for allowing us to participate in the care of this patient. Please refer to my attending physician's documentation for any further recommendations. (2) COVID: (3) Hypertension: (4) Hyperlipidemia: (5) DVT prophylaxis: (6) ACS (acute coronary syndrome): (7) Ventricular fibrillation: (8) CAD (coronary atherosclerotic disease): Plan Patient is status post And is stable at this time. No vasopressor requirements. Minimal oxygen support. Incidentally discovered to have COVID-19 on PCR testing. Asymptomatic. Continue usual post cath care and ASCVD evidence-based treatment protocol. Echo reviewed with an LVEF of 36%. Grade 1 diastolic dysfunction. Moderate aortic valve sclerosis. Patient stable for downgrade. History of Present Illness Attending Physician: Haylie Herrmann DO History of Present Illness Patient is a 81-year-old male with past medical history AAA, CAD (2), HLD, HTN who presented to the emergency department earlier this evening with complaints of upper abdominal pain with radiation to the left shoulder. Patient stated that he took an aspirin and rested and pain subsided for a while. He did report some shortness of breath at the time. CTA negative for PE or AAA dissection. In the emergency department patient had V. fib arrest and required defibrillation and CPR achieving ROSC after few minutes. Patient did awaken and was speaking after ROSC and did not require intubation. He was noted to have EKG changes and elevated troponin and heart alert was initiated given patient's history as well. In the [facility] [employer] he was found to have 100% acute occlusion of the mid right PDA and underwent successful PCI of mid right PDA with WALLACE x1. Patient now being admitted to ICU for further management this time. On arrival to the ICU the patient is alert and oriented and hemodynamically stable. He is maintaining oxygen saturation on nasal cannula and appears comfortable at rest. Patient reports that abdominal pain has improved and is no longer radiating to his shoulder. He did test positive for COVID-19 on PCR. Patient states that he has had a cough for the past few weeks which has recently improved as of yesterday. He currently denies headache, dizziness, syncope, sore throat, congestion, shortness of breath, fevers, palpitations, chest pain, nausea or vomiting or diarrhea, changes in gait, or swelling in hands and feet. Allergies Allergy/AdvReac Type Severity Reaction Status Date / Time Penicillins Allergy Intermediate HANDS Verified 04/10/22 23:28 BECAME ITCHY Home Medications Medication Instructions Recorded Confirmed Type amlodipine 10 mg tablet 10 mg PO DAILY 04/10/22 04/10/22 History atorvastatin 20 mg tablet 20 mg PO DAILY 04/10/22 04/10/22 History benazepril 20 mg tablet 20 mg PO DAILY 04/10/22 04/10/22 History calcium carbonate 200 mg calcium 400 mg PO DIRECTED PRN 04/10/22 04/10/22 History (500 mg) chewable tablet (Tums) HALL'S SYNDROME/HEARTBURN/INDIGESTION Patient History Medical History (Updated 04/11/22 @ 11:13 by Andres Morton DO) AAA (abdominal aortic aneurysm) CAD (coronary atherosclerotic disease) History not obtained Hyperlipidemia Hypertension Myocardial infarct Surgical History (Updated 04/11/22 @ 08:34 by Haylie Herrmann DO) Status post vascular surgery Family History Other No family history of disorders Social History Smoking Status: Former smoker Tobacco Type: Cigarettes Hx Alcohol Use: Yes Alcohol type: wine Hx Substance Use: No Preferred Language: Swedish Communication Ability: Effective 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 Beliefs That Will Affect Care: None Current Living Situation: Spouse Feels Safe at Home: Yes Review of Systems Review of Systems: All systems reviewed & are unremarkable except as noted in HPI & below Physical Exam Constitutional: WD/WN, vitals as above Eyes: PERRL, conjunctivae normal, anicteric sclerae ENMT: external ear and nose normal, oropharynx normal Neck: trachea midline, no thyromegaly Respiratory: normal respiratory effort, lungs clear to auscultation Cardiovascular: RRR, no murmur, no edema Heart Sounds: normal S1 and normal S2; no murmur Extremities: no edema Gastrointestinal (Abdomen): normal bowel sounds, soft, nontender, no hepatosplenomegaly Musculoskeletal: no cyanosis or clubbing, extremities motor strength 5/5 Skin: no rashes, warm and dry Neurologic: PERRL, EOMI, accommodation nl, no face palsy, no dysarthria Psychiatric: A+Ox3, euthymic affect Results & Data Results & Data ([facility]) Vital Signs (Past 12 Hours) Vital Signs Temp Pulse Pulse Resp BP BP Pulse Ox 04/11/22 05:00 66 26 H 115/77 95 04/11/22 05:11 04/11/22 05:06 36.4 C L 68 21 128/62 97 04/11/22 03:00 64 26 H 99 04/11/22 02:56 100/68 04/11/22 02:56 67 24 04/11/22 02:30 87 04/11/22 02:39 73 25 H 99 04/11/22 02:15 68 25 H 91 04/11/22 02:15 68 20 127/74 94 04/11/22 02:00 67 29 H 93 04/11/22 01:30 74 94 04/11/22 02:19 04/11/22 01:03 78 20 93 04/11/22 00:30 76 27 H 91 04/11/22 00:10 154/83 H 04/11/22 00:10 82 24 91 04/11/22 00:00 85 26 H 92 04/10/22 23:33 80 23 94 04/10/22 21:49 36.7 C 77 16 160/66 H 95 O2 Del Method O2 Flow Rate FiO2 04/11/22 05:00 Room Air 04/11/22 05:11 Nasal Cannula 3 04/11/22 05:06 Nasal Cannula 3 04/11/22 03:00 04/11/22 02:56 04/11/22 02:56 04/11/22 02:30 04/11/22 02:39 100 04/11/22 02:15 04/11/22 02:15 04/11/22 02:00 04/11/22 01:30 04/11/22 02:19 Room Air 04/11/22 01:03 04/11/22 00:30 04/11/22 00:10 04/11/22 00:10 04/11/22 00:00 04/10/22 23:33 04/10/22 21:49 Room Air Coding Level of Care Code Critical Care 1st 30-74 mins Diagnoses Cardiac arrest I46.9 COVID U07.1 Hypertension I10 Hyperlipidemia E78.5 DVT prophylaxis Z29.9 ACS (acute coronary syndrome) I24.9 Ventricular fibrillation I49.01 CAD (coronary atherosclerotic disease) I25.10
[2022-04-11] MEDS: METOPROLOL TARTRATE 25 MG TAB PO SCH ×2 (07:40→20:08)
[2022-04-11] MEDS: ATORVASTATIN 40 MG TAB PO SCH (07:40)
[2022-04-11] MEDS: ASPIRIN 81 MG ECTAB PO SCH (07:40)
[2022-04-11 07:46] LABS: Basophils # (auto) 0.05 K/uL (0-0.2); Basophils % (auto) 0.5 %; Eosinophils # (auto) 0.07 K/uL (0-0.50); Eosinophils % (auto) 0.8 %; Hematocrit (blood only) 41.9 % (40.1-51.0); Hemoglobin 13.8 g/dl (14.0-18.0); Immature Granulocytes # (auto) 0.03 K/uL (0.00-0.02); Immature Granulocytes % (auto) 0.3 %; Lymphocytes # (auto) 0.87 K/uL (1.2-3.4); Lymphocytes % (auto) 9.3 %; Mean Corpuscular Hemoglobin 28.8 pg (25.0-34.0); Mean Corpuscular Hgb Conc 32.9 g/dL (32.0-36.0); Mean Corpuscular Volume 87.5 fL (80.0-100.0); Mean Platelet Volume 10.7 fL (9.4-12.4); Monocytes # (auto) 1.36 K/uL (0.24-0.82); Monocytes % (auto) 14.6 %; Neutrophils # (auto) 6.95 K/uL (1.4-6.5); Neutrophils % (auto) 74.5 %; Platelet Count 221 K/uL (130-400); RDW Standard Deviation 45.3 fL (36.4-46.3); Red Blood Count 4.79 M/uL (4.63-6.08); White Blood Count 9.33 K/ul (4.8-10.8)
--- NOTE | 2022-04-11 08:11 | XRay Report ---
XR chest 1V portable HISTORY: epigastric pain COMPARISON: None. FINDINGS: Mild emphysema. Interstitial thickening at the lung bases likely represents vascular crowdi ng from the emphysematous change. No focal lung consolidations to suggest pneumonia. No evidence for pulmonary edema. The heart is normal in size. This mildly tortuous thoracic aorta. IMPRESSION: Emphysema. Otherwise, no acute process within the chest. ACT 112: Negative or not required by law. Electronically signed by: Pola Davis M.D. 04/11/2022 8:10 AM
[2022-04-11 08:14] LABS: BUN Creatinine Ratio 21.6 (10-20); Calcium 8.5 mg/dl (8.5-10.1); Creatinine Clr Calc Pharmacy 55.7 ml/min; Est GFR (African American) 85.7 ml/min; Est GFR (Non-African American) 73.9 ml/min; Potassium 3.8 mmol/L (3.5-5.1)
--- NOTE | 2022-04-11 08:33 | Cardiology Consultation ---
Date of Consultation April 11, 2022 Assessment & Plan (1) ACS (acute coronary syndrome): (2) Cardiac arrest: (3) CAD (coronary atherosclerotic disease): (4) Hyperlipidemia: (5) Hypertension: (6) COVID: (7) AAA (abdominal aortic aneurysm): (8) Right ventricular dysfunction: Plan Mr. Morgan is status post inferior non-STEMI complicated by V. fib arrest 2D echocardiogram reveals moderately reduced LV systolic function with an EF of 36% along with reduced RV systolic function. Status post PCI to the RPDA Currently symptom-free. Complex ventricular ectopy has now resolved. Continue aspirin, Plavix, atorvastatin and metoprolol Will require 24-hour monitoring in the ICU followed by 48-hour monitoring on telemetry. LifeVest is not indicated given that his EF is greater than 35% Given RV involvement would avoid any decrease in preload History of Present Illness Reason for Consultation: NSTEMI and cardiac arrest Requesting Physician: MAINE Attending Physician: Yoel Singleton MD History of Present Illness It was my pleasure to see Mr. Morgan in cardiac consultation today April 11, 2022. He is a very pleasant 81-year-old gentleman who was previously following with Dr. Cartagena of our cardiology practice. He presented to [facility] in the evening of 04/10/2022 with complaints of abdominal pain. The patient states that he was moving a heavy bench at home when he suddenly developed severe mid epigastric pain. He described it as severe pressure/stabbing sensation but denied any associated chest pain, shortness of breath, diaphoresis, palpitations or lightheadedness. His and daughter encouraged him to come to the emergency department. Upon arrival the patient had a ventricular fibrillation arrest but was successfully revived without the need for intubation. He was then taken emergently to the cardiac catheter ization lab where a culprit RPDA lesion was intervened upon. He was then transferred to the intensive care unit. Upon arrival, he was having a significant PVC burden including short salvos and persistent runs of ventricular tachycardia but they have now resolved. Currently, he states he feels great. He states his abdominal pain has resolved after the catheterization and again he denies any chest pain or shortness of breath. He states that this presentation was different to his previous heart attack at which time he had chest heaviness. Allergies Allergy/AdvReac Type Severity Reaction Status Date / Time Penicillins Allergy Intermediate HANDS Verified 04/10/22 23:28 BECAME ITCHY Home Medications Medication Instructions Recorded Confirmed Type amlodipine 10 mg tablet 10 mg PO DAILY 04/10/22 04/10/22 History atorvastatin 20 mg tablet 20 mg PO DAILY 04/10/22 04/10/22 History benazepril 20 mg tablet 20 mg PO DAILY 04/10/22 04/10/22 History calcium carbonate 200 mg calcium 400 mg PO DIRECTED PRN 04/10/22 04/10/22 History (500 mg) chewable tablet (Tums) HALL'S SYNDROME/HEARTBURN/INDIGESTION Patient History Medical History (Updated 04/11/22 @ 11:13 by Andres Morton DO) AAA (abdominal aortic aneurysm) CAD (coronary atherosclerotic disease) History not obtained Hyperlipidemia Hypertension Myocardial infarct Surgical History (Updated 04/11/22 @ 08:34 by Haylie Herrmann DO) Status post vascular surgery Family History Other No family history of disorders Social History Smoking Status: Former smoker Tobacco Type: Cigarettes Hx Alcohol Use: Yes Alcohol type: wine Hx Substance Use: No Preferred Language: Pashto Communication Ability: Effective 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 No acute distress. HEENT: Normocephalic, atraumatic. Pupils equal, round and reactive to light and accommodation. Extraocular muscles are intact. Anicteric sclera. Moist mucous membranes. Neck: No JVD. No bruit. Cardiovascular: Regular. Positive S-4. Normal S-1 and S-2. No S-3. 3/6 mid to late systolic ejection murmur, greatest at the right sternal border, second intercostal space with radiation to the bilateral carotids. No rubs. Pulmonary: Clear to auscultation bilaterally. No rales, rhonchi, or wheezing. Abdomen: Bowel sounds x 4, soft. No rebound, guarding or tenderness. No organomegaly. Extremities: No clubbing, cyanosis or edema. +2 pedal pulses bilaterally. Skin: Warm and dry. Results & Data ([facility]) Vital Signs (Past 12 Hours) Vital Signs Temp Pulse Pulse Resp BP BP Pulse Ox 04/11/22 08:15 57 L 13 95 04/11/22 08:00 68 21 95 04/11/22 08:00 133/69 04/11/22 07:45 72 21 94 04/11/22 07:30 71 20 94 04/11/22 07:15 76 21 95 04/11/22 07:00 70 21 95 04/11/22 07:00 130/76 04/11/22 07:58 04/11/22 06:30 64 21 127/64 97 04/11/22 06:35 36.6 C 04/11/22 06:00 66 20 129/67 98 04/11/22 05:30 66 25 H 130/64 98 04/11/22 05:30 130/64 04/11/22 05:00 66 26 H 115/77 95 04/11/22 05:11 04/11/22 05:06 36.4 C L 68 21 128/62 97 04/11/22 03:00 64 26 H 99 04/11/22 02:56 100/68 04/11/22 02:56 67 24 04/11/22 02:30 87 04/11/22 02:39 73 25 H 99 04/11/22 02:15 68 25 H 91 04/11/22 02:15 68 20 127/74 94 04/11/22 02:00 67 29 H 93 04/11/22 01:30 74 94 04/11/22 02:19 04/11/22 01:03 78 20 93 04/11/22 00:30 76 27 H 91 04/11/22 00:10 154/83 H 04/11/22 00:10 82 24 91 04/11/22 00:00 85 26 H 92 04/10/22 23:33 80 23 94 04/10/22 21:49 36.7 C 77 16 160/66 H 95 O2 Del Method O2 Flow Rate FiO2 04/11/22 08:15 Nasal Cannula 2 04/11/22 08:00 04/11/22 08:00 04/11/22 07:45 04/11/22 07:30 04/11/22 07:15 04/11/22 07:00 04/11/22 07:00 04/11/22 07:58 Nasal Cannula 2 04/11/22 06:30 Nasal Cannula 3 04/11/22 06:35 04/11/22 06:00 Nasal Cannula 3 04/11/22 05:30 Nasal Cannula 3 04/11/22 05:30 04/11/22 05:00 Room Air 04/11/22 05:11 Nasal Cannula 3 04/11/22 05:06 Nasal Cannula 3 04/11/22 03:00 04/11/22 02:56 04/11/22 02:56 04/11/22 02:30 04/11/22 02:39 100 04/11/22 02:15 04/11/22 02:15 04/11/22 02:00 04/11/22 01:30 04/11/22 02:19 Room Air 04/11/22 01:03 04/11/22 00:30 04/11/22 00:10 04/11/22 00:10 04/11/22 00:00 04/10/22 23:33 04/10/22 21:49 Room Air
--- NOTE | 2022-04-11 09:19 | CT Scan Report ---
ABDOMEN AND PELVIS CT WITH IV CONTRAST CT DOSE: 815.18 mGy.cm HISTORY: upper abd pain, hx AAA repair TECHNIQUE: Multiaxial CT images of the abdomen and pelvis were performed following the use of intrave nous contrast. A dose lowering technique was utilized adhering to the principles of ALARA. COMPARISON STUDY: None. FINDINGS: Please refer to the same day chest CTA for further evaluation of the lung bases. No pneumop eritoneum. No pneumatosis. 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 Modera te degenerative disc disease throughout the lumbar spine and mild S-shaped scoliosis. Small fat-conta ining umbilical hernia. A small left inguinal hernia containing a short segment of the proximal sigmo id colon. The liver, gallbladder, pancreas, spleen, adrenal glands are unremarkable. There is a mildl y atrophic right kidney. No ureteral stones. No hydronephrosis. There are few subcentimeter hypodense lesions within the left kidney which are technically too small to characterize. The main portal vein is patent. Status post aortobiiliac stent graft repair of an abdominal aortic aneurysm. The aneurysm sac measures 3.8 x 3.8 cm. There is suggestion of a small endoleak within the anterior aspect of the distal aneurysm sac best in image 190. There is a small right posterior bladder diverticulum. No estiven dder wall thickening. No pelvic free fluid. The prostate gland is enlarged. Colonic diverticulosis. N o evidence for acute diverticulitis. No bowel wall thickening or obstruction. Normal appendix. Modera te stool within the colon. IMPRESSION: 1. No bowel wall thickening or obstruction. 2. Colonic diverticulosis. No evidence for acute diverticulitis. 3. Status post aortobiiliac stent graft repair of abdominal aortic aneurysm. The aneurysm sac measure s 3.8 x 3.8 cm. There is suggestion of a small endoleak within the anterior aspect of the aneurysm sa c. Follow-up dedicated abdominal CTA with and without intravenous contrast can be performed for furth er evaluation on a nonemergent basis. 4. Small left inguinal hernia containing a short segment of the colon. 5. Additional findings as described above. ACT 112: Positive. There are findings on this exam that require communication between the performing entity and the patient following Patient Test Result Information Act ([place] Act 112) guidelines. Electronically signed by: Pola Davis M.D. 04/11/2022 9:17 AM
--- NOTE | 2022-04-11 09:25 | CT Scan Report ---
CHEST CTA for PULMONARY ARTERIES CT DOSE: HISTORY: Epigastric pain. Shortness of breath. TECHNIQUE: Multiaxial CT images of the chest were performed following the intravenous administration of contrast to evaluate the pulmonary arteries. Maximal intensity projection images were also obtaine d. A dose lowering technique was utilized adhering to the principles of ALARA. COMPARISON STUDY: None. FINDINGS: Moderate calcified plaque within the normal caliber thoracic aorta. No evidence for an aort ic dissection. Severe calcified plaque within the coronary arteries. The heart is top normal in size. No pleural or pericardial effusions. No filling defects within the pulmonary arteries to suggest a p ulmonary embolus. The thyroid gland enhances normally. Normal caliber esophagus. No fractures within the visualized osseous structures. No pneumothorax. The central airways are patent. Moderate emphysem a. Mild bronchial wall thickening. A few partially opacified distal left lower lobe bronchi. Punctate calcified granuloma within the left lower lobe. No focal lung consolidations to suggest pneumonia. A few prominent mediastinal and bilateral hilar lymph nodes with the largest measuring 12 mm in short axis diameter. IMPRESSION: 1. No evidence for pulmonary embolus. 2. Mild emphysema 3. No focal lung consolidations to suggest pneumonia. 4. Borderline enlarged mediastinal and bilateral hilar lymph nodes. Six-month to one year chest CT fo llow-up can be performed to ensure stability. ACT 112: Negative or not required by law. Electronically signed by: Pola Davis M.D. 04/11/2022 9:23 AM
--- NOTE | 2022-04-11 16:38 | Hospitalist Progress Note ---
Date of Service April 11, 2022 Assessment & Plan (1) Ventricular fibrillation: Plan: 2/2 ACS. Taken to lab associate and found to have a 100% moderate mid right PDA occlusion. A single drug-eluting stent was placed. Sent to ICU for continued monitoring and trend troponin until peak. Echocardiogram in a.m. 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 Beta-jaun was started and titrate as blood pressure allows. NSTEMI V fib Arrest s/p PCI- Stent to PDA stable overall continue ASA, Plavix, Lipitor, Metoprolol (2) ACS (acute coronary syndrome): Plan: Plan as above (3) Cardiac arrest: Plan: CODE BLUE while in the ER after patient went into ventricular fibrillation. He received 1 shock and amiodarone 150 mg. He was placed on BiPAP and heart alert was initiated. (4) COVID: Plan: Asymptomatic and this is an incidental finding. No indication for COVID- specific therapies at this time. Continue isolation. 04/[address] chest no pneumonia continue to monitor COVID isolation (5) Hypertension: Plan: Hold amlodipine and Benzepril for now and add back slowly. Start metoprolol tartrate per cardiology. (6) Hyperlipidemia: Plan: Continue risk factor modification, Lipitor 20 increased to 40 mg daily. (7) DVT prophylaxis: Plan: Lovenox Full Dispo-pending cardiology clearance. Currently in the ICU. Admission and Anticipated Discharge Date Admission Date: April 11, 2022 Subjective ff up for NSTEMI, V fib arrest, COVID infection, etc seen resting in chair, comfortable oriented x 3, not in distress states he feels much better overall chest pain resolved no chest pain, dyspnea, palpitations, dizziness no cough, fever/chills, myalgias, arthralgias has usual post nasal drip no other symptoms Review of Systems Review of Systems: all noted and negative except for above Physical Exam Physical Exam: General- oriented x 3, not in distress, speaks in sentences with no effort or accessory muscle use Head- atraumatic Eyes- PERRL, EOMI, anicteric ENT- oropharynx clear Neck- supple, no JVD, no adenopathy, no thyromegaly; carotids +2/2, no bruits appreciated Lungs- clear to auscultation bilaterally, no rales/wheezes Heart- normal rate, regular rhythm; no murmur, no gallop, no rub appreciated Abdomen- normal bowel sounds, nondistended, soft, nontender, no masses or hepatosplenomegaly Extremities- no pretibial edema, no calf tenderness; peripheral pulses intact Neuro- alert, oriented x 3; CN 2-12 grossly intact; motor 5/5 bilaterally;sensation 100% on all extremities; no other gross focal neurologic deficits Skin- warm & dry Results & Data Results & Data ([facility]) Vital Signs (Past 12 Hours) Vital Signs Temp Pulse Pulse Resp BP BP Pulse Ox 04/11/22 11:30 137/61 04/11/22 11:30 67 13 95 04/11/22 11:00 67 21 94 04/11/22 11:00 125/66 04/11/22 10:30 60 24 94 04/11/22 10:30 122/71 04/11/22 10:00 62 16 95 04/11/22 10:00 120/69 04/11/22 09:30 60 23 96 04/11/22 09:30 130/71 04/11/22 11:56 36.6 C 04/11/22 09:00 66 20 95 04/11/22 09:00 140/75 04/11/22 08:30 64 19 96 04/11/22 08:30 131/69 04/11/22 08:15 57 L 13 95 04/11/22 08:00 68 21 95 04/11/22 08:00 133/69 04/11/22 07:45 72 21 94 04/11/22 07:30 71 20 94 04/11/22 07:15 76 21 95 04/11/22 07:00 70 21 95 04/11/22 07:00 130/76 04/11/22 07:58 04/11/22 06:30 64 21 127/64 97 04/11/22 06:35 36.6 C 04/11/22 06:00 66 20 129/67 98 04/11/22 05:30 66 25 H 130/64 98 04/11/22 05:30 130/64 04/11/22 05:00 66 26 H 115/77 95 04/11/22 05:11 04/11/22 05:06 36.4 C L 68 21 128/62 97 O2 Del Method O2 Flow Rate 04/11/22 11:30 04/11/22 11:30 Room Air 04/11/22 11:00 04/11/22 11:00 04/11/22 10:30 04/11/22 10:30 04/11/22 10:00 04/11/22 10:00 04/11/22 09:30 04/11/22 09:30 04/11/22 11:56 04/11/22 09:00 Nasal Cannula 2 04/11/22 09:00 04/11/22 08:30 04/11/22 08:30 04/11/22 08:15 Nasal Cannula 2 04/11/22 08:00 04/11/22 08:00 04/11/22 07:45 04/11/22 07:30 04/11/22 07:15 04/11/22 07:00 04/11/22 07:00 04/11/22 07:58 Nasal Cannula 2 04/11/22 06:30 Nasal Cannula 3 04/11/22 06:35 04/11/22 06:00 Nasal Cannula 3 04/11/22 05:30 Nasal Cannula 3 04/11/22 05:30 04/11/22 05:00 Room Air 04/11/22 05:11 Nasal Cannula 3 04/11/22 05:06 Nasal Cannula 3 all noted and reviewed including below
[2022-04-11] MEDS: guaiFENesin 600 MG TABCR PO SCH (21:11)
--- NOTE | 2022-04-11 22:26 | Electrocardiogram Report ---
Test Reason : Blood Pressure : / mmHG Vent. Rate : 090 BPM Atrial Rate : 090 BPM P-R Int : 156 ms QRS Dur : 084 ms QT Int : 356 ms P-R-T Axes : 052 -49 075 degrees QTc Int : 435 ms Sinus rhythm with frequent Premature ventricular complexes Left anterior fascicular block Possible Inferior infarct , age undetermined Nonspecific ST abnormality Abnormal ECG No previous ECGs available Confirmed by Willy Carolina ([id number]) on 04/11/2022 10:25:59 PM Referred By: REFERRED SELF Confirmed By:Willy Carolina
--- NOTE | 2022-04-11 22:31 | Electrocardiogram Report ---
Test Reason : Blood Pressure : / mmHG Vent. Rate : 092 BPM Atrial Rate : 092 BPM P-R Int : 164 ms QRS Dur : 082 ms QT Int : 374 ms P-R-T Axes : 046 -57 061 degrees QTc Int : 462 ms Sinus rhythm with frequent , and consecutive Premature ventricular complexes Left axis deviation Inferior infarct , age undetermined Abnormal ECG No previous ECGs available Confirmed by Willy Carolina ([id number]) on 04/11/2022 10:31:15 PM Referred By: REFERRED SELF Confirmed By:Willy Carolina
--- NOTE | 2022-04-11 22:35 | Electrocardiogram Report ---
Test Reason : Blood Pressure : / mmHG Vent. Rate : 100 BPM Atrial Rate : 100 BPM P-R Int : 156 ms QRS Dur : 070 ms QT Int : 318 ms P-R-T Axes : 069 011 059 degrees QTc Int : 410 ms Poor data quality, interpretation may be adversely affected Sinus rhythm with Premature ventricular complexes Premature atrial complexes Inferior infarct (cited on or before 10-APR-2022) ST elevation consider inferior injury or acute infarct ST elevation consider anterior injury or acute infarct ACUTE [place] / STEMI Abnormal ECG When compared with ECG of 11-APR-2022 00:04, ST elevation is now present in inferior and anterior leads Premature ventricular complexes are no longer Present Confirmed by Willy Carolina ([id number]) on 04/11/2022 10:35:18 PM Referred By: REFERRED SELF Confirmed By:Willy Carolina
--- NOTE | 2022-04-11 22:47 | Electrocardiogram Report ---
Test Reason : Blood Pressure : / mmHG Vent. Rate : 069 BPM Atrial Rate : 069 BPM P-R Int : 162 ms QRS Dur : 090 ms QT Int : 426 ms P-R-T Axes : 115 226 121 degrees QTc Int : 456 ms Suspect arm lead reversal, interpretation assumes no reversal Sinus rhythm with frequent , and consecutive Premature ventricular complexes Inferior infarct (cited on or before 10-APR-2022) Possible Anterolateral infarct , age undetermined Abnormal ECG When compared with ECG of 11-APR-2022 02:33, Questionable change in QRS duration Borderline criteria for Anterior infarct are now Present Borderline criteria for Anterolateral infarct are now Present ST elevation is no longer present in anterior and inferior leads Confirmed by Willy Carolina ([id number]) on 04/11/2022 10:47:19 PM Referred By: REFERRED SELF Confirmed By:Willy Carolina
[2022-04-12 04:18] LABS: Appearance Urine Clear (Clear); Bacteria Urine Automated Negative (Negative); Bilirubin Urine Negative (Negative); Blood Urine 1+ (Negative); Cast Urine Automated 0 /lpf (0-5); Color Urine Yellow; Glucose Urine UA Negative (Negative); Ketones Urine Trace (Negative); Leukocyte Esterase Urine Negative (Negative); Nitrite Urine Negative (Negative); Protein Urine 1+ (Negative); RBC Urine Automated 0-4 /hpf (0-4); Specific Gravity Urine 1.023 (1.000-1.030); Urobilinogen Urine Negative (Negative)
[2022-04-12] MEDS: CLOPIDOGREL BISULFATE 75 MG TAB PO SCH (05:26)
[2022-04-12 06:25] LABS: Basophils # (auto) 0.07 K/uL (0-0.2); Basophils % (auto) 0.8 %; Eosinophils # (auto) 0.19 K/uL (0-0.50); Eosinophils % (auto) 2.3 %; Hematocrit (blood only) 44.1 % (40.1-51.0); Hemoglobin 14.5 g/dl (14.0-18.0); Immature Granulocytes # (auto) 0.03 K/uL (0.00-0.02); Immature Granulocytes % (auto) 0.4 %; Mean Corpuscular Hemoglobin 28.4 pg (25.0-34.0); Mean Corpuscular Hgb Conc 32.9 g/dL (32.0-36.0); Mean Corpuscular Volume 86.5 fL (80.0-100.0); Mean Platelet Volume 10.7 fL (9.4-12.4); Monocytes % (auto) 16.8 %; Neutrophils # (auto) 5.13 K/uL (1.4-6.5); Neutrophils % (auto) 61.7 %; Platelet Count 208 K/uL (130-400); RDW Standard Deviation 44.7 fL (36.4-46.3); White Blood Count 8.32 K/ul (4.8-10.8)
[2022-04-12 07:12] LABS: BUN Creatinine Ratio 14.9 (10-20); Calcium 8.4 mg/dl (8.5-10.1); Creatinine Clr Calc Pharmacy 57.5 ml/min; Est GFR (Non-African American) 76.8 ml/min; Potassium 3.6 mmol/L (3.5-5.1)
[2022-04-12] MEDS: guaiFENesin 600 MG TABCR PO SCH ×2 (08:15→21:19)
[2022-04-12] MEDS: METOPROLOL TARTRATE 25 MG TAB PO SCH ×3 (08:15→18:13)
[2022-04-12] MEDS: ATORVASTATIN 40 MG TAB PO SCH (08:16)
[2022-04-12] MEDS: ASPIRIN 81 MG ECTAB PO SCH (08:16)
[2022-04-12] MEDS: ENOXAPARIN INJ 40 MG/0.4 ML SYR SQ SCH (08:16)
--- NOTE | 2022-04-12 10:07 | Cardiology Progress Note ---
Date of Service April 12, 2022 Assessment & Plan (1) ACS (acute coronary syndrome): (2) Cardiac arrest: (3) CAD (coronary atherosclerotic disease): (4) Hyperlipidemia: (5) Hypertension: (6) COVID: (7) AAA (abdominal aortic aneurysm): (8) Right ventricular dysfunction: Plan Mr. Morgan is status post inferior non-STEMI complicated by V. fib arrest 2D echocardiogram reveals moderately reduced LV systolic function with an EF of 36% along with reduced RV systolic function. Status post PCI to the RPDA Currently symptom-free. Complex ventricular ectopy has now resolved. Continue aspirin, Plavix, atorvastatin Okay to transfer to telemetry unit LifeVest is not indicated given that his EF is greater than 35% Given RV involvement would avoid any decrease in preload Given increasing PVC burden will uptitrate metoprolol to 12.5 mg p.o. every 6 hours at this time. In accordance with the CAST study antiarrhythmics are not indicated for PVC suppression status post infarction. Given ischemic cardiomyopathy he will be discharged on evidence-based beta- jaun. Will also initiate ARB and spironolactone prior to discharge as BP allows. Admission and Anticipated Discharge Date Admission Date: April 11, 2022 Physical Exam Physical Exam: General: Awake, alert and oriented x 3. No acute distress. HEENT: Normocephalic, atraumatic. Pupils equal, round and reactive to light and accommodation. Extraocular muscles are intact. Anicteric sclera. Moist mucous membranes. Neck: No JVD. No bruit. Cardiovascular: Regular. Positive S-4. Normal S-1 and S-2. No S-3. 3/6 mid to late systolic ejection murmur, greatest at the right sternal border, second intercostal space with radiation to the bilateral carotids. No rubs. Pulmonary: Clear to auscultation bilaterally. No rales, rhonchi, or wheezing. Abdomen: Bowel sounds x 4, soft. No rebound, guarding or tenderness. No organomegaly. Extremities: No clubbing, cyanosis or edema. +2 pedal pulses bilaterally. Skin: Warm and dry. Results & Data ([facility]) Vital Signs (Past 12 Hours) Vital Signs Temp Pulse Pulse Resp BP BP Pulse Ox 04/12/22 08:00 78 04/12/22 08:00 04/12/22 08:00 36.6 C 79 18 135/77 94 04/12/22 06:30 78 21 94 04/12/22 06:00 72 28 H 139/67 96 04/12/22 05:30 80 29 H 94 04/12/22 05:00 69 30 H 145/73 H 94 04/12/22 04:30 72 26 H 95 04/12/22 04:00 134/67 04/12/22 04:00 65 24 94 04/12/22 03:30 67 25 H 95 04/12/22 03:01 70 24 134/54 L 91 04/12/22 02:30 64 23 94 04/12/22 02:00 67 15 115/72 93 04/12/22 01:01 77 16 122/65 95 04/12/22 00:30 92 H 31 H 93 04/12/22 00:01 71 29 H 118/67 92 04/11/22 23:30 75 20 95 04/11/22 23:01 85 15 171/87 H 91 04/11/22 22:30 63 22 94 04/12/22 00:00 69 04/11/22 22:07 73 25 H 141/68 H 93 O2 Del Method 04/12/22 08:00 04/12/22 08:00 Room Air 04/12/22 08:00 Room Air 04/12/22 06:30 04/12/22 06:00 04/12/22 05:30 04/12/22 05:00 04/12/22 04:30 04/12/22 04:00 04/12/22 04:00 04/12/22 03:30 04/12/22 03:01 04/12/22 02:30 04/12/22 02:00 04/12/22 01:01 04/12/22 00:30 04/12/22 00:01 04/11/22 23:30 04/11/22 23:01 04/11/22 22:30 04/12/22 00:00 04/11/22 22:07
--- NOTE | 2022-04-12 11:16 | Electrocardiogram Report ---
Test Reason : Blood Pressure : / mmHG Vent. Rate : 065 BPM Atrial Rate : 065 BPM P-R Int : 160 ms QRS Dur : 086 ms QT Int : 442 ms P-R-T Axes : 065 -59 258 degrees QTc Int : 459 ms Poor data quality, interpretation may be adversely affected Normal sinus rhythm Left axis deviation Inferior infarct (cited on or before 10-APR-2022) T wave abnormality, consider lateral ischemia Abnormal ECG When compared with ECG of 11-APR-2022 04:51, Borderline criteria for Anterolateral infarct are no longer Present Confirmed by Dionte Zabala ([id number]) on 04/12/2022 11:15:52 AM Referred By: REFERRED SELF Confirmed By:Dionte Zabala
--- NOTE | 2022-04-12 14:44 | XRay Report ---
SINGLE VIEW CHEST CLINICAL HISTORY: Dyspnea. FINDINGS: An AP, portable, upright chest radiograph is compared to study dated 04/10/2022 and correlat ed with chest CT dated 04/11/2022. The examination is degraded by portable technique and patient rotat ion. The heart is enlarged noting atherosclerotic calcification of the thoracic aorta. The pulmonary vasculature is noncongested. Emphysema and chronic interstitial thickening is similar to previous. T here is bibasilar scarring/atelectasis. No airspace consolidation or large pleural effusion is identi fied. No pneumothorax is seen. The skeletal structures are osteopenic. bony thorax is grossly intact. IMPRESSION: Cardiomegaly and emphysema with no acute cardiopulmonary abnormality identified. ACT 112: Negative or not required by law. Electronically signed by: Reddy Vergara M.D. 04/12/2022 2:43 PM
--- NOTE | 2022-04-12 15:25 | Hospitalist Progress Note ---
Date of Service April 12, 2022 Assessment & Plan (1) Ventricular fibrillation: Plan: 2/2 ACS. Taken to ear mold laboratory technician and found to have a 100% moderate mid right PDA occlusion. A single drug-eluting stent was placed. Sent to ICU for continued monitoring and trend troponin until peak. Echocardiogram in a.m. Loaded with clopidogrel 600 mg in Pin Drafting Machine Operator and continue dual antiplatelet therapy for at least 1 year. Beta-jaun was started and titrate as blood pressure allows. NSTEMI V fib Arrest Echo: EF 36% s/p PCI- Stent to PDA (+) PVCs- Metoprolol increased continue ASA, Plavix, Lipitor, Metoprolol Orthopnea CXR: pending pulse oximetry overnight 2 L NC while sleeping (2) ACS (acute coronary syndrome): Plan: Plan as above (3) Cardiac arrest: Plan: CODE BLUE while in the ER after patient went into ventricular fibrillation. He received 1 shock and amiodarone 150 mg. He was placed on BiPAP and heart alert was initiated. (4) COVID: Plan: Asymptomatic and this is an incidental finding. No indication for COVID- specific therapies at this time. Continue isolation. 04/[address] chest no pneumonia continue to monitor COVID isolation (5) Hypertension: Plan: Hold amlodipine and Benzepril for now and add back slowly. on Metoprolol for above (6) Hyperlipidemia: Plan: Continue risk factor modification, Lipitor 20 increased to 40 mg daily. (7) DVT prophylaxis: Plan: Lovenox Full Dispo-pending cardiology clearance. plan of care discussed with patient and his daughter at bedside in detail and at length all questions answered they are understanding, agreeable, comfortable with the plan of care Admission and Anticipated Discharge Date Admission Date: April 11, 2022 Subjective ff up for s/p NSTEMI, s/p V fib arrest family reports patient has been having difficulty breathing when laying flat, has not slept for 3 days seen resting in bed, laying on his right side- states he is able to breathe better laying on the right side no chest pain, dyspnea, palpitations, dizziness occasional dry cough no headache, dizziness, nausea/vomiting no other symptoms Review of Systems Review of Systems: all noted and negative except for above Physical Exam Physical Exam: General- oriented x 3, not in distress, speaks in sentences with no effort or accessory muscle use Eyes- anicteric Neck- no JVD Lungs- clear breath sounds bilaterally, no rales/wheezes Heart- normal rate, regular rhythm; no murmurs Abdomen- normal bowel sounds, nondistended, soft, nontender Extremities- no pretibial edema, no calf tenderness Neuro- alert, oriented x 3; no gross focal neurologic deficits Skin- warm & dry Results & Data Results & Data ([facility]) Vital Signs (Past 12 Hours) Vital Signs Temp Pulse Pulse Resp BP BP Pulse Ox 04/12/22 11:00 67 16 91 04/12/22 11:00 141/73 H 04/12/22 10:00 61 22 93 04/12/22 10:00 118/65 04/12/22 09:00 74 22 04/12/22 09:00 93/60 L 04/12/22 08:00 80 93 04/12/22 08:00 135/77 04/12/22 07:30 99 H 90 04/12/22 08:00 78 04/12/22 08:00 04/12/22 08:00 36.6 C 79 18 135/77 94 04/12/22 06:30 78 21 94 04/12/22 06:00 72 28 H 139/67 96 04/12/22 05:30 80 29 H 94 04/12/22 05:00 69 30 H 145/73 H 94 04/12/22 04:30 72 26 H 95 04/12/22 04:00 134/67 04/12/22 04:00 65 24 94 04/12/22 03:30 67 25 H 95 O2 Del Method 04/12/22 11:00 04/12/22 11:00 04/12/22 10:00 04/12/22 10:00 04/12/22 09:00 04/12/22 09:00 04/12/22 08:00 04/12/22 08:00 04/12/22 07:30 04/12/22 08:00 04/12/22 08:00 Room Air 04/12/22 08:00 Room Air 04/12/22 06:30 04/12/22 06:00 04/12/22 05:30 04/12/22 05:00 04/12/22 04:30 04/12/22 04:00 04/12/22 04:00 04/12/22 03:30 all noted and reviewed including below
[2022-04-12] MEDS: MELATONIN 3 MG TAB PO SCH (21:19)
[2022-04-13] MEDS: METOPROLOL TARTRATE 25 MG TAB PO SCH ×4 (00:42→17:54)
[2022-04-13] MEDS: ENOXAPARIN INJ 40 MG/0.4 ML SYR SQ SCH (08:42)
[2022-04-13] MEDS: guaiFENesin 600 MG TABCR PO SCH ×2 (08:43→20:27)
[2022-04-13] MEDS: CLOPIDOGREL BISULFATE 75 MG TAB PO SCH (08:43)
[2022-04-13] MEDS: ASPIRIN 81 MG ECTAB PO SCH (08:43)
[2022-04-13] MEDS: ATORVASTATIN 40 MG TAB PO SCH (08:43)
--- NOTE | 2022-04-13 09:39 | Electrocardiogram Report ---
Test Reason : Blood Pressure : / mmHG Vent. Rate : 073 BPM Atrial Rate : 073 BPM P-R Int : 158 ms QRS Dur : 088 ms QT Int : 434 ms P-R-T Axes : 059 -48 238 degrees QTc Int : 478 ms Sinus rhythm with occasional Premature ventricular complexes Left axis deviation Inferior infarct (cited on or before 10-APR-2022) Abnormal ECG When compared with ECG of 12-APR-2022 02:55, Premature ventricular complexes are now Present T wave inversion more evident in Anterior leads Confirmed by Keyur Martinez ([id number]) on 04/13/2022 9:39:19 AM Referred By: REFERRED SELF Confirmed By:Keyur Martinez
--- NOTE | 2022-04-13 09:54 | Electrocardiogram Report ---
Test Reason : Blood Pressure : / mmHG Vent. Rate : 060 BPM Atrial Rate : 060 BPM P-R Int : 160 ms QRS Dur : 088 ms QT Int : 478 ms P-R-T Axes : 081 -55 252 degrees QTc Int : 478 ms Normal sinus rhythm Left axis deviation Inferior infarct (cited on or before 10-APR-2022) Marked ST and T wave inversion consider anterolateral ischemia Abnormal ECG When compared with ECG of 12-APR-2022 18:43, (unconfirmed) Premature ventricular complexes are no longer Present Confirmed by Keyur Martinez ([id number]) on 04/13/2022 9:54:30 AM Referred By: REFERRED SELF Confirmed By:Keyur Martinez
--- NOTE | 2022-04-13 11:19 | Hospitalist Progress Note ---
Date of Service April 13, 2022 Assessment & Plan (1) Ventricular fibrillation: Plan: 2/2 ACS. Taken to tag and label cutter and found to have a 100% moderate mid right PDA occlusion. A single drug-eluting stent was placed. Sent to ICU for continued monitoring and trend troponin until peak. Echocardiogram in a.m. Loaded with clopidogrel 600 mg in Topography Technician and continue dual antiplatelet therapy for at least 1 year. Beta-jaun was started and titrate as blood pressure allows. NSTEMI V fib Arrest Echo: EF 36% s/p PCI- Stent to PDA (+) PVCs- Metoprolol increased PVCs improving asymptomatic continue ASA, Plavix, Lipitor, Metoprolol Orthopnea CXR: no signs of volume overload, pneumonia pulse oximetry overnight: (+) mild hypoxemia 2 L NC while sleeping (2) ACS (acute coronary syndrome): Plan: Plan as above (3) Cardiac arrest: Plan: CODE BLUE while in the ER after patient went into ventricular fibrillation. He received 1 shock and amiodarone 150 mg. He was placed on BiPAP and heart alert was initiated. (4) COVID: Plan: Asymptomatic and this is an incidental finding. No indication for COVID- specific therapies at this time. Continue isolation. 04/[address] chest no pneumonia 04/12 CXR: no pneumonia continue to monitor COVID isolation (5) Hypertension: Plan: Hold amlodipine and Benzepril for now and add back slowly. on Metoprolol for above (6) Hyperlipidemia: Plan: Continue risk factor modification, Lipitor 20 increased to 40 mg daily. (7) DVT prophylaxis: Plan: Lovenox Full Dispo-pending cardiology clearance. plan of care discussed with patient and his daughter at bedside in detail and at length all questions answered they are understanding, agreeable, comfortable with the plan of care Admission and Anticipated Discharge Date Admission Date: April 11, 2022 Subjective ff up for s/p NSTEMI, etc seen resting in bed, comfortable patient's daughter Leeann at bedside visiting states he had a good night's sleep no chest pain, dyspnea, palpitations, dizziness has some mild anterior rib pain no headache, nausea/vomiting, cough, fever/chills appetite is good no other symptoms Review of Systems Review of Systems: all noted and negative except for above Physical Exam Physical Exam: General- oriented x 3, not in distress, speaks in sentences with no effort or accessory muscle use Eyes- anicteric Neck- no JVD Lungs- clear BS BL no rales no wheezing Heart- normal rate, regular rhythm; no murmurs Abdomen- normal bowel sounds, nondistended, soft, nontender Extremities- no pretibial edema, no calf tenderness Neuro- alert, oriented x 3; no gross focal neurologic deficits Skin- warm & dry Results & Data Results & Data ([facility]) Vital Signs (Past 12 Hours) Vital Signs Temp Pulse Pulse Pulse Resp BP Pulse Ox 04/13/22 07:00 51 L 04/13/22 08:03 36.7 C 59 L 18 162/82 H 94 04/13/22 02:41 36.7 C 66 20 144/86 H 95 04/13/22 02:30 67 Pulse Ox O2 Del Method O2 Del Method O2 Flow Rate FiO2 04/13/22 07:00 04/13/22 08:03 Room Air 04/13/22 02:41 Oxymask 3 04/13/22 02:30 94 Room Air 21 all noted and reviewed including below
--- NOTE | 2022-04-13 15:10 | Cardiology Progress Note ---
Date of Service April 13, 2022 Assessment & Plan (1) ACS (acute coronary syndrome): (2) Cardiac arrest: (3) CAD (coronary atherosclerotic disease): (4) Hyperlipidemia: (5) Hypertension: (6) COVID: (7) AAA (abdominal aortic aneurysm): (8) Right ventricular dysfunction: Plan Mr. Morgan is status post inferior non-STEMI complicated by V. fib arrest 2D echocardiogram reveals moderately reduced LV systolic function with an EF of 36% along with reduced RV systolic function. Status post PCI to the RPDA Currently symptom-free. Complex ventricular ectopy has now resolved. Continue aspirin, Plavix, atorvastatin LifeVest is not indicated given that his EF is greater than 35% Given RV involvement would avoid any decrease in preload In accordance with the CAST study antiarrhythmics are not indicated for PVC suppression status post infarction. We will titrate to evidence-based beta-jaun metoprolol tartrate 50 mg p.o. in the a.m. Will start losartan 25 mg p.o. daily today as well. Would also initiate spironolactone 12.5 mg p.o. daily should his BP remain elevated. Continue to monitor on telemetry overnight and anticipate discharge to home in the a.m. The pathophysiology, treatment and expected recovery was discussed with the patient and family members at [facility] Admission and Anticipated Discharge Date Admission Date: April 11, 2022 Subjective Patient seen and examined, chart reviewed. Multiple family members at the bedside. Currently the patient states he feels great. Denies any chest pain, abdominal pain, shortness of breath, lightheadedness or dizziness. Tolerating medications well without any issues. Telemetry reviewed: Normal sinus rhythm without arrhythmias or significant ventricular ectopy Review of Systems Review of Systems: All systems reviewed & are unremarkable except as noted in HPI & below Physical Exam Physical Exam: General: Awake, alert and oriented x 3. No acute distress. HEENT: Normocephalic, atraumatic. Pupils equal, round and reactive to light and accommodation. Extraocular muscles are intact. Anicteric sclera. Moist mucous membranes. Neck: No JVD. No bruit. Cardiovascular: Regular. Positive S-4. Normal S-1 and S-2. No S-3. 3/6 mid to late systolic ejection murmur, greatest at the right sternal border, second intercostal space with radiation to the bilateral carotids. No rubs. Pulmonary: Clear to auscultation bilaterally. No rales, rhonchi, or wheezing. Abdomen: Bowel sounds x 4, soft. No rebound, guarding or tenderness. No organomegaly. Extremities: No clubbing, cyanosis or edema. +2 pedal pulses bilaterally. Skin: Warm and dry. Results & Data ([facility]) Vital Signs (Past 12 Hours) Vital Signs Temp Pulse Pulse Resp BP Pulse Ox O2 Del Method 04/13/22 12:47 94 04/13/22 07:00 51 L 04/13/22 08:03 36.7 C 59 L 18 162/82 H 94 Room Air
[2022-04-13] MEDS: LOSARTAN POTASSIUM 25 MG TAB PO SCH (15:42)
[2022-04-13] MEDS ORDERED: SPIRONOLACTONE 25 MG TAB PO ONE (20:05)
[2022-04-13] MEDS ORDERED: LOSARTAN POTASSIUM 25 MG TAB PO STA (20:05)
[2022-04-13] MEDS: MELATONIN 3 MG TAB PO SCH (20:27)
[2022-04-14] MEDS: guaiFENesin 600 MG TABCR PO SCH ×2 (09:04→20:24)
[2022-04-14] MEDS: LOSARTAN POTASSIUM 25 MG TAB PO SCH (09:04)
[2022-04-14] MEDS: ATORVASTATIN 40 MG TAB PO SCH (09:05)
[2022-04-14] MEDS: METOPROLOL SUCC 50MG EXT REL TAB PO SCH (09:05)
[2022-04-14] MEDS: CLOPIDOGREL BISULFATE 75 MG TAB PO SCH (09:05)
[2022-04-14] MEDS: ASPIRIN 81 MG ECTAB PO SCH (09:05)
[2022-04-14] MEDS: ENOXAPARIN INJ 40 MG/0.4 ML SYR SQ SCH (09:06)
[2022-04-14] MEDS ORDERED: LOSARTAN POTASSIUM 25 MG TAB PO SCH (10:30)
--- NOTE | 2022-04-14 10:51 | Cardiology Progress Note ---
Date of Service April 14, 2022 Assessment & Plan (1) ACS (acute coronary syndrome): (2) Cardiac arrest: (3) CAD (coronary atherosclerotic disease): (4) Hyperlipidemia: (5) Hypertension: (6) COVID: (7) AAA (abdominal aortic aneurysm): (8) Right ventricular dysfunction: Plan Mr. Morgan is status post inferior non-STEMI complicated by V. fib arrest 2D echocardiogram reveals moderately reduced LV systolic function with an EF of 36% along with reduced RV systolic function. Status post PCI to the RPDA Currently symptom-free. Complex ventricular ectopy has now resolved. Continue aspirin, Plavix, atorvastatin LifeVest is not indicated given that his EF is greater than 35% Given RV involvement would avoid any decrease in preload In accordance with the CAST study antiarrhythmics are not indicated for PVC suppression status post infarction. We will titrate to evidence-based beta-jaun metoprolol tartrate 50 mg p.o. in the a.m. Status post PCI his blood pressure is significantly increased. Will give a total of 100 mg of losartan today Spironolactone 25 mg daily started as well Already on metoprolol succinate 50 mg daily Would like to recheck BP at 1700 today and if SBP less than 160 okay to discharge to home Should BP remain elevated then may need to start p.o. hydralazine as well My office will call to arrange close follow-up in the next few weeks Admission and Anticipated Discharge Date Admission Date: April 11, 2022 Subjective Patient seen and examined, chart reviewed. Currently the patient states he feels great. Denies any chest pain, abdominal pain, shortness of breath, lightheadedness or dizziness. Tolerating medications well without any issues. Telemetry reviewed: Normal sinus rhythm without arrhythmias or significant v entricular ectopy Review of Systems Review of Systems: All systems reviewed & are unremarkable except as noted in HPI & below Physical Exam Physical Exam: General: Awake, alert and oriented x 3. No acute distress. HEENT: Normocephalic, atraumatic. Pupils equal, round and reactive to light and accommodation. Extraocular muscles are intact. Anicteric sclera. Moist mucous membranes. Neck: No JVD. No bruit. Cardiovascular: Regular. Positive S-4. Normal S-1 and S-2. No S-3. 3/6 mid to late systolic ejection murmur, greatest at the right sternal border, second intercostal space with radiation to the bilateral carotids. No rubs. Pulmonary: Clear to auscultation bilaterally. No rales, rhonchi, or wheezing. Abdomen: Bowel sounds x 4, soft. No rebound, guarding or tenderness. No organomegaly. Extremities: No clubbing, cyanosis or edema. +2 pedal pulses bilaterally. Skin: Warm and dry. Results & Data ([facility]) Vital Signs (Past 12 Hours) Vital Signs Temp Pulse Pulse Resp BP Pulse Ox O2 Del Method 04/14/22 07:00 86 04/14/22 03:00 36.6 C 60 16 160/82 H 96 Oxymask 04/13/22 22:58 37.1 C 58 L 20 138/80 100 Oxymask O2 Flow Rate 04/14/22 07:00 04/14/22 03:00 2 04/13/22 22:58 3
--- NOTE | 2022-04-14 17:32 | Hospitalist Progress Note ---
Date of Service April 14, 2022 Assessment & Plan (1) Ventricular fibrillation: Plan: 2/2 ACS. Taken to orthodontic lab technician and found to have a 100% moderate mid right PDA occlusion. A single drug-eluting stent was placed. Sent to ICU for continued monitoring and trend troponin until peak. Echocardiogram in a.m. Loaded with clopidogrel 600 mg in Scientific Software Developer and continue dual antiplatelet therapy for at least 1 year. Beta-jaun was started and titrate as blood pressure allows. NSTEMI V fib Arrest Echo: EF 36% s/p PCI- Stent to PDA (+) PVCs- Metoprolol increased PVCs improving asymptomatic continue ASA, Plavix, Lipitor, Metoprolol-->changed to succinate 50mg daily Hypertension BP elevated Losartan 100mg daily started Hydralazine 25mg TID started Orthopnea CXR: no signs of volume overload, pneumonia pulse oximetry overnight: (+) mild hypoxemia 2 L NC while sleeping resolved (2) ACS (acute coronary syndrome): Plan: Plan as above (3) Cardiac arrest: Plan: CODE BLUE while in the ER after patient went into ventricular fibrillation. He received 1 shock and amiodarone 150 mg. He was placed on BiPAP and heart alert was initiated. (4) COVID: Plan: Asymptomatic and this is an incidental finding. No indication for COVID- specific therapies at this time. Continue isolation. 04/[address] chest no pneumonia 04/12 CXR: no pneumonia continue to monitor COVID isolation (5) Hypertension: Plan: management per above (6) Hyperlipidemia: Plan: Continue risk factor modification, Lipitor 20 increased to 40 mg daily. (7) DVT prophylaxis: Plan: Lovenox Full Dispo-pending cardiology clearance. plan of care discussed with patient and his daughter at bedside in detail and at length all questions answered they are understanding, agreeable, comfortable with the plan of care Admission and Anticipated Discharge Date Admission Date: April 11, 2022 Subjective ff up for NSTEMI, etc seen resting in bedside chair comfortable, in good spirits no chest pain, dyspnea, palpitations, dizziness no headache, fever/chills, cough no other symptoms Review of Systems Review of Systems: all noted and negative except for above Physical Exam Physical Exam: General- oriented x 3, not in distress, speaks in sentences with no effort or accessory muscle use Eyes- anicteric Neck- no JVD Lungs- clear BS bilaterally, no rales/wheezes Heart- normal rate, regular rhythm; no murmurs Abdomen- normal bowel sounds, nondistended, soft, nontender Extremities- no pretibial edema, no calf tenderness Neuro- alert, oriented x 3; no gross focal neurologic deficits Skin- warm & dry Results & Data Results & Data ([facility]) Vital Signs (Past 12 Hours) Vital Signs Temp Pulse Pulse Resp BP Pulse Ox O2 Del Method 04/14/22 12:07 36.5 C 73 16 158/87 H 95 Room Air 04/14/22 07:00 86 all noted and reviewed including below
[2022-04-14] MEDS: hydrALAZINE HCL 25 MG TAB PO SCH (21:02)
[2022-04-14] MEDS: MELATONIN 3 MG TAB PO SCH (22:17)
[2022-04-15] MEDS: hydrALAZINE HCL 25 MG TAB PO SCH ×2 (05:43→07:53)
[2022-04-15] MEDS: ENOXAPARIN INJ 40 MG/0.4 ML SYR SQ SCH (07:52)
[2022-04-15] MEDS: METOPROLOL SUCC 50MG EXT REL TAB PO SCH (07:53)
[2022-04-15] MEDS: ASPIRIN 81 MG ECTAB PO SCH (07:53)
[2022-04-15] MEDS: ATORVASTATIN 40 MG TAB PO SCH (07:53)
[2022-04-15] MEDS: guaiFENesin 600 MG TABCR PO SCH (07:53)
[2022-04-15] MEDS: CLOPIDOGREL BISULFATE 75 MG TAB PO SCH (07:54)
[2022-04-15] MEDS ORDERED: LOSARTAN POTASSIUM 50 MG TAB PO SCH (09:00)
[2022-04-15] MEDS ORDERED: ALUMINUM/MAGNESIUM SUSP 30 ML UDC PO PRN (10:03)
[2022-04-15] MEDS ORDERED: ALUMINUM/MAGNESIUM SUSP 30 ML UDC PO STA (10:03)
[2022-04-15] MEDS ORDERED: PANTOprazole 40 MG TAB PO SCH (10:15)
--- NOTE | 2022-04-15 10:56 | Hospitalist Progress Note ---
Date of Service April 15, 2022 Assessment & Plan (1) NSTEMI (non-ST elevation myocardial infarction): Plan: (1) Ventricular fibrillation: Plan: 2/2 ACS. Taken to cath lab radiology technician and found to have a 100% moderate mid right PDA occlusion. A single drug-eluting stent was placed. Sent to ICU for continued monitoring and trend troponin until peak. Echocardiogram in a.m. Loaded with clopidogrel 600 mg in [facility] Coordinator and continue dual antiplatelet therapy for at least 1 year. Beta-jaun was started and titrate as blood pressure allows. NSTEMI V fib Arrest Echo: EF 36% s/p PCI- Stent to PDA (+) PVCs- Metoprolol increased PVCs improved asymptomatic continue ASA, Plavix, Lipitor, Metoprolol-->changed to succinate 50mg daily Hypertension BP elevated Losartan 100mg daily started Hydralazine 25mg TID started BP improved Orthopnea CXR: no signs of volume overload, pneumonia pulse oximetry overnight: (+) mild hypoxemia 2 L NC while sleeping resolved (2) ACS (acute coronary syndrome): Plan: Plan as above (3) Cardiac arrest: Plan: CODE BLUE while in the ER after patient went into ventricular fibrillation. He received 1 shock and amiodarone 150 mg. He was placed on BiPAP and heart alert was initiated. (4) COVID: Plan: Asymptomatic and this is an incidental finding. No indication for COVID- specific therapies at this time. Continue isolation. 04/[address] chest no pneumonia 04/12 CXR: no pneumonia continue to monitor COVID isolation (5) Hypertension: Plan: management per above (6) Hyperlipidemia: Plan: Continue risk factor modification, Lipitor 20 increased to 40 mg daily. (7) DVT prophylaxis: Plan: Lovenox Full Dispo-pending cardiology clearance. plan of care discussed with patient and his daughter at bedside in detail and at length all questions answered they are understanding, agreeable, comfortable with the plan of care Admission and Anticipated Discharge Date Admission Date: April 11, 2022 Subjective ff up for NSTEMI, etc seen resting in bed, not in distress states he is having GI upset that started this morning no nausea/vomiting no chest pain, dyspnea, palpitations, dizziness no other symptoms Review of Systems Review of Systems: all noted and negative except for above Physical Exam Physical Exam: General- oriented x 3, not in distress, speaks in sentences with no effort or accessory muscle use Eyes- anicteric Neck- no JVD Lungs- clear BS bilaterally, no rales/wheezes Heart- normal rate, regular rhythm; no murmurs Abdomen- normal bowel sounds, nondistended, soft, no tenderness Extremities- no pretibial edema, no calf tenderness Neuro- alert, oriented x 3; no gross focal neurologic deficits Skin- warm & dry Results & Data Results & Data ([facility]) Vital Signs (Past 12 Hours) Vital Signs Temp Pulse Pulse Resp BP BP Pulse Ox 04/15/22 08:00 65 04/15/22 10:00 131/73 04/15/22 07:58 36.8 C 88 18 160/71 H 96 04/15/22 05:40 149/83 H 04/15/22 03:48 36.7 C 54 L 20 138/75 93 04/14/22 23:00 36.9 C 61 18 134/74 99 O2 Del Method 04/15/22 08:00 04/15/22 10:00 04/15/22 07:58 Room Air 04/15/22 05:40 04/15/22 03:48 Room Air 04/14/22 23:00 Room Air all noted and reviewed including below
--- NOTE | 2022-04-15 12:02 | Cardiology Progress Note ---
Date of Service April 15, 2022 Assessment & Plan (1) ACS (acute coronary syndrome): (2) Cardiac arrest: (3) CAD (coronary atherosclerotic disease): (4) Hyperlipidemia: (5) Hypertension: (6) COVID: (7) AAA (abdominal aortic aneurysm): (8) Right ventricular dysfunction: Plan Mr. Morgan is status post inferior non-STEMI complicated by V. fib arrest 2D echocardiogram reveals moderately reduced LV systolic function with an EF of 36% along with reduced RV systolic function. Status post PCI to the RPDA Currently symptom-free. Complex ventricular ectopy has now resolved. Continue aspirin, Plavix, atorvastatin LifeVest is not indicated given that his EF is greater than 35% Given RV involvement would avoid any decrease in preload In accordance with the CAST study antiarrhythmics are not indicated for PVC suppression status post infarction. Status post PCI his blood pressure is significantly increased. Blood pressure now improved and will discharge home on current medical regimen. Recurrent abdominal pain today but EKG unremarkable, doubt cardiac in nature Okay to DC to home and will need cardiac follow-up in 2 to 4 weeks Admission and Anticipated Discharge Date Admission Date: April 11, 2022 Subjective Patient seen and examined, chart reviewed. Blood pressure is now well controlled with the addition of hydralazine last p.m. Clinically, the patient is having some abdominal discomfort which she states is similar to his presenting symptoms but nowhere near as severe. Denies any chest pain or shortness of breath. Telemetry reviewed: Normal sinus rhythm without arrhythmia. Review of Systems Review of Systems: All systems reviewed & are unremarkable except as noted in HPI & below Physical Exam Physical Exam: General: Awake, alert and oriented x 3. No acute distress. HEENT: Normocephalic, atraumatic. Pupils equal, round and reactive to light and accommodation. Extraocular muscles are intact. Anicteric sclera. Moist mucous membranes. Neck: No JVD. No bruit. Cardiovascular: Regular. Positive S-4. Normal S-1 and S-2. No S-3. 3/6 mid to late systolic ejection murmur, greatest at the right sternal border, second intercostal space with radiation to the bilateral carotids. No rubs. Pulmonary: Clear to auscultation bilaterally. No rales, rhonchi, or wheezing. Abdomen: Bowel sounds x 4, soft. No rebound, guarding or tenderness. No organomegaly. Extremities: No clubbing, cyanosis or edema. +2 pedal pulses bilaterally. Skin: Warm and dry. Results & Data ([facility]) Vital Signs (Past 12 Hours) Vital Signs Temp Pulse Pulse Resp BP BP Pulse Ox 04/15/22 08:00 65 04/15/22 10:00 131/73 04/15/22 07:58 36.8 C 88 18 160/71 H 96 04/15/22 05:40 149/83 H 04/15/22 03:48 36.7 C 54 L 20 138/75 93 O2 Del Method 04/15/22 08:00 04/15/22 10:00 04/15/22 07:58 Room Air 04/15/22 05:40 04/15/22 03:48 Room Air
--- NOTE | 2022-04-15 13:48 | Discharge Summary ---
Date of Service April 15, 2022 Admission HPI Per Admitting Provider 81 yo M presented with abdominal discomfort. He was carrying a bench at his home and developed upper abdominal pain that radiated upwards into his chest and to the left shoulder. He took an aspirin as a precaution and rested with the pain subsiding. Intermittent chest pain reported. Denied associated symptoms except did have some shortness of breath. Has a history of CAD with two cardiac stents. Noncompliant with prescribed aspirin. In the ER, initial troponin was 105 with repeat going to 1460. EKG revealed SR with frequent PVCs aat a rate of 92 bpm. There were ?q waves in inferior leads but no ST elevation. A CT angio of the chest was performed and negative for PE, pneumonia or fluid with no TAA or dissection. Atherosclerotic disease in aorta and coronaries was seen. There were subcm mediastinal lymph nodes present and he is COVID positive. While in the ER, he went into vfib arrest and required defibrillation and CPR, achieving ROSC after a few minutes. A heart alert was called and he is going to the label pinker. With the activity of the night, I was unable to speak with him and gather information. Historical information was gathered from the record and the ER physician. Family is also extremely upset and unable to give a history at this time. I saw him post procedure and he is doing well, recovering in the ICU. Mental status is clear. He denies any chest pain or SOB. No abdominal pain or other issues at this time. Lives in [place], [place] for most of the year. Admission Exam Per Admitting Provider CONSTITUTIONAL: WNWD, vitals as above, generally well-appearing, NAD EYES: normal conjunctivae, no scleral icterus ENT: external ear and nose normal, MMM NECK: trachea midline RESPIRATORY: clear to auscultation bilaterally, no crackles, rales or wheezes, normal respiratory effort CARDIOVASCULAR: regular rate and rhythm, S1 and 2 heard without murmurs, gallops or rubs, no JVD, no peripheral edema, CHEST: inspection of chest was normal GASTROINTESTINAL: soft, nontender, ND, no guarding MUSCULOSKELETAL: strength 5/5 throughout, head is normocephalic and atraumatic, SKIN: warm and dry, TR band on right wrist. warm and well perfused NEUROLOGIC: CN 2-12 grossly intact, no sensory deficit, normal cognition, normal speech, no tremor PSYCHIATRIC: alert cooperative and oriented to person, place and time. Principal Diagnosis NSTEMI S/P V FIB ARREST S/P PCI TO RPDA Discharge Exam General- oriented x 3, not in distress, speaks in sentences with no effort or accessory muscle use Eyes- anicteric Neck- no JVD Lungs- clear BS bilaterally, no rales/wheezes Heart- normal rate, regular rhythm; no murmurs Abdomen- normal bowel sounds, nondistended, soft, no tenderness Extremities- no pretibial edema, no calf tenderness Neuro- alert, oriented x 3; no gross focal neurologic deficits Skin- warm & dry Discharge Data Allergies Allergy/AdvReac Type Severity Reaction Status Date / Time Penicillins Allergy Intermediate HANDS Verified 04/10/22 23:28 BECAME ITCHY Consultations 04/11/22 00:14 ED Decision to Admit Stat 04/11/22 02:15 Consult Cardiology Routine 04/11/22 04:34 Consult Cardiac Rehabilitation Routine 04/11/22 06:09 Consult Defect Cutter Routine Procedures Performed Operation Date: 04/11/22 03:00 Actual Procedures p Aspiration/PCI w/WALLACE for Stemi - Umair Amos MD s Cineradiography w/Routine Exam - Umair Amos MD s Cath, Left with Cors and Vent - Umair Amos MD Ordered Studies 04/11/22 01:13 CT abd pelvis IV con only Urgent CT angio chest PE protocol Urgent 04/11/22 02:57 CL Cath Imgs for PACS use only Routine 04/15 CT angio abd pelvis wo/w con CLINICAL HISTORY: ABDOMINAL PAIN, R/O ABD AORTA ANEURYSM LEAK COMPARISON STUDY: CT of the abdomen and pelvis April 11, 2022. TECHNIQUE: Unenhanced and arterial phase imaging of the abdomen and pelvis was performed. Intravenous injection 120 cc Optiray 320 IV was uneventful. Sagittal and coronal reconstructions were viewed as well as maximal intensity projections on an independent 3-D workstation. Automated exposure control was utilized for the study. A dose lowering technique was utilized adhering to the principles of ALARA. FINDINGS: Lung bases are unremarkable. There is thinning of the left ventricular apex consistent with old infarct. There is a tiny outpouching. Trace pericardial effusion is present. No pneumatosis, free air or portal venous gas is present. Arterial phase images of the liver, spleen, adrenal glands and pancreas are unremarkable. There is no biliary or pancreatic ductal dilatation. No peripancreatic or pericholecystic infiltration is present. There is no evidence for a bowel obstruction. Colonic diverticulosis is noted without evidence for acute diverticulitis. Distal descending colon slightly extends into a left inguinal hernia. Small bowel loop within a right femoral hernia is noted. There is no resultant bowel obstruction. Postprocedural changes within the left groin are noted. No significant hematoma is present. There is no lymphadenopathy. There is no ascites. 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 Aneurysm sac measures 4.2 x 3.6 cm. No evidence for rupture. There is an equivocal tiny endoleak within the anterior aspect of the sac on axial image 202 of 411. Bilateral iliac limbs are patent. Proximal left internal iliac artery is occluded with distal reconstitution. No dissection is noted. There is mild stenosis at the origin of the celiac axis. This may be due to the median arcuate ligament. Moderate to severe stenosis at the origin of the right renal artery is noted. There is moderate right renal atrophy. IMPRESSION: 1. Bifurcated aortoiliac stent graft in place. No evidence for rupture. Aneurysm sac measures 4.2 x 3.6 cm. Equivocal tiny endoleak, as described above. This is of questionable significance. A follow-up endovascular protocol CT could be obtained in 3-6 months for reassessment. 2. No acute process within the abdomen or pelvis on arterial phase exam. 3. 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 Moderate right renal atrophy. 4. Colonic diverticulosis. No evidence for acute diverticulitis. 5. Distal descending colon slightly extends into a left inguinal hernia. Small bowel loop within a right femoral hernia. No resultant bowel obstruction. 6. 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 Trace pericardial effusion. ACT 112: Negative or not required by law. Electronically signed by: Wes Aguilera M.D. 04/15/2022 4:26 PM Hospital Course (1) NSTEMI (non-ST elevation myocardial infarction): NSTEMI s/p Cardiac Arrest, secondary to Ventricular fibrillation: 2/2 ACS. Taken to label pinker and found to have a 100% moderate mid right PDA occlusion. A single drug-eluting stent was placed. Sent to ICU for continued monitoring and trend troponin until peak. Echocardiogram in a.m. Loaded with clopidogrel 600 mg in Mobile Qa Tester and continue dual antiplatelet therapy for at least 1 year. Beta-jaun was started and titrate as blood pressure allows. Echo: EF 36% s/p PCI- Stent to RPDA (+) PVCs observed- Metoprolol increased asymptomatic, remained chest pain free started on ASA, Plavix, Lipitor increased to 40 mg, Metoprolol-->changed to succinate 50mg daily Hypertension BP elevated Losartan 100mg daily started Hydralazine 25mg TID started BP improving close monitoring as outpatient Orthopnea Nocturnal Hypoxemia CXR: no signs of volume overload, pneumonia pulse oximetry overnight: (+) mild hypoxemia 2 L NC while sleeping Orthopnea resolved Abnormal CT Findings: Equivocal endoleak in the abdominal aortic aneurysm, moderate to severe stenosis of the right renal artery 1. Bifurcated aortoiliac stent graft in place. No evidence for rupture. Aneurysm sac measures 4.2 x 3.6 cm. Equivocal tiny endoleak, as described above. This is of questionable significance. A follow-up endovascular protocol CT could be obtained in 3-6 months for reassessment. 2. No acute process within the abdomen or pelvis on arterial phase exam. 3. 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 Moderate right renal atrophy. Please refer to full report in the Ordered Studies section above Further work up, management, and ff up as outpatient ACS (acute coronary syndrome): Plan: Plan as above Cardiac arrest: Plan: CODE BLUE while in the ER after patient went into ventricular fibrillation. He received 1 shock and amiodarone 150 mg. He was placed on BiPAP and heart alert was initiated. COVID: Plan: Asymptomatic and this is an incidental finding. No indication for COVID- specific therapies at this time. Continue isolation. 04/[address] chest no pneumonia 04/12 CXR: no pneumonia COVID isolation x5 more days Hypertension: Plan: management per above Hyperlipidemia: Plan: Continue risk factor modification, Lipitor 20 increased to 40 mg daily. DVT prophylaxis: Plan: Lovenox given Full Dispo-pending cardiology clearance. plan of care discussed with patient and his daughter at bedside in detail and at length all questions answered they are understanding, agreeable, comfortable with the plan of care Total Time Total Time Spent Total Time Spent (In Minutes): > 30 minutes Discharge Plan Discharge Items Patient Disposition: Home - Self-Care Reason For Visit: CHEST PAIN Discharge Diagnosis: NON ST ELEVATION MYOCARDIAL INFARCTION S/P VENTRICULAR FIBRILLATION ARREST Activity: As commented below Activity Comment: RESUME ACTIVITY GRADUALLY TOLERATED Lifting: Wait until after follow-up appointment Exercise/Sports: Wait until after follow-up appointment Driving/Machine Use: NO DRIVING UNTIL RE-EVALUATED AND ALLOWED BY PRIMARY CARE PHYSICIAN Non-emergency contact: Primary Care Provider Call non-emergency contact if: you have any medication questions and you have a fever Follow-up/Referrals: Umair Amos MD [Physician] - PCP,NO [Primary Care Provider] - Diet: Heart Healthy Addtl Attending Provider Instructions: PLEASE REFER TO YOUR NEW MEDICATION LIST AND FOLLOW INSTRUCTIONS CAREFULLY. YOUR NEW MEDICATIONS INCLUDE: ASPIRIN PLAVIX METOPROLOL XL LOSARTAN HYDRALAZINE NITROGLYCERIN TABLET PLEASE RETURN TO THE ER OR CALL 911 IF WITH WORSENING OF SYMPTOMS, INCLUDING CHEST PAIN, SHORTNESS OF BREATH, PALPITATIONS. YOU STILL NEED TO ISOLATE AT HOME FOR 5 MORE DAYS. FOLLOW UP WITH TRAVEL JOURNALIST DR. AMOS IN 1 WEEK. FOLLOW UP WITH PRIMARY CARE PHYSICIAN IN 2 WEEKS. Home Isolation COVID-19 Instructions The following information about Home Isolation is from the CDC Website: https://www.cdc.gov/coronavirus/2019-ncov/hcp/immfgydl-ivsutzr-pbrnmr.html Stay home except to get medical care People who are mildly ill with COVID-19 are able to isolate at home during their illness. You should restrict activities outside your home, except for getting medical care. Do not go to work, school, or public areas. Avoid using public transportation, ride-sharing, or taxis. Separate yourself from other people and animals in your home People: As much as possible, you should stay in a specific room and away from other people in your home. Also, you should use a separate bathroom, if available. Animals: You should restrict contact with pets and other animals while you are sick with COVID-19, just like you would around other people. Although there have not been reports of pets or other animals becoming sick with COVID-19, it is still recommended that people sick with COVID-19 limit contact with animals until more information is known about the virus. When possible, have another member of your household care for your animals while you are sick. If you are sick with COVID-19, avoid contact with your pet, including petting, snuggling, being kissed or licked, and sharing food. If you must care for your pet or be around animals while you are sick, wash your hands before and after you interact with pets and wear a face mask. Call ahead before visiting your doctor If you have a medical appointment, call the healthcare provider and tell them that you have or may have COVID-19. This will help the healthcare providers office take steps to keep other people from getting infected or exposed. Wear a face mask You should wear a face mask when you are around other people (e.g., sharing a room or vehicle) or pets and before you enter a healthcare providers office. If you are not able to wear a face mask (for example, because it causes trouble breathing), then people who live with you should not stay in the same room with you, or they should wear a face mask if they enter your room. Cover your coughs and sneezes Cover your mouth and nose with a tissue when you cough or sneeze. Throw used tissues in a lined trash can. Immediately wash your hands with soap and water for at least 20 seconds or, if soap and water are not available, clean your hands with an alcohol-based hand diesel truck technician that contains at least 60% alcohol. Clean your hands often Wash your hands often with soap and water for at least 20 seconds, especially after blowing your nose, coughing, or sneezing; going to the bathroom; and before eating or preparing food. If soap and water are not readily available, use an alcohol-based hand diesel truck technician with at least 60% alcohol, covering all surfaces of your hands and rubbing them together until they feel dry. Soap and water are the best option if hands are visibly dirty. Avoid touching your eyes, nose, and mouth with unwashed hands. Avoid sharing personal household items You should not share dishes, drinking glasses, cups, eating utensils, towels, or bedding with other people or pets in your home. After using these items, they should be washed thoroughly with soap and water. Clean all high-touch surfaces everyday High touch surfaces include counters, tabletops, doorknobs, bathroom fixtures, toilets, phones, keyboards, tablets, and bedside tables. Also, clean any surfaces that may have blood, stool, or body fluids on them. Use a household cleaning spray or wipe, according to the label instructions. Labels contain instructions for safe and effective use of the cleaning product including precautions you should take when applying the product, such as wearing gloves and making sure you have good ventilation during use of the product. Monitor your symptoms Seek prompt medical attention if your illness is worsening (e.g., difficulty breathing).Beforeseeking care, call your healthcare provider and tell them that you have, or are being evaluated for, COVID-19. Put on a face mask before you enter the facility. These steps will help the healthcare providers office to keep other people in the office or waiting room from getting infected or exposed. Ask your healthcare provider to call the local or state health department. Persons who are placed under active monitoring or facilitated self- monitoring should follow instructions provided by their local health department or occupational health professionals, as appropriate. When working with your local health department check their available hours. If you have a medical emergency and need to call 911, notify the dispatch personnel that you have, or are being evaluated for COVID-19. If possible, put on a face mask before emergency medical services arrive. Discontinuing home isolation Patients with confirmed COVID-19 should remain under home isolation precautions until the risk of secondary transmission to others is thought to be low. The decision to discontinue home isolation precautions should be made on a [id number] basis, in consultation with healthcare providers and [facility] and local health departments. Pending Studies at Discharge: Yes Studies:: REPEAT CT ANGIOGRAM OF THE ABDOMEN/PELVIS IN 3 MONTHS TO RE-EVALUATE ABDOMINAL AORTIC ANEURYSM. Stand-Alone Forms: [facility], Smoking Cessation Medications and DC Order Prescriptions: New clopidogrel 75 mg Tablet 75 mg PO QAM 30 Days Qty: 30 2RF atorvastatin 40 mg Tablet 40 mg PO QAM 30 Days Qty: 30 2RF hydralazine 25 mg Tablet 25 mg PO TID Qty: 90 2RF losartan 50 mg Tablet 100 mg PO QAM 30 Days Qty: 60 2RF metoprolol succinate 50 mg Tablet Extended Release 24 Hr 50 mg PO QAM 30 Days Qty: 30 2RF aspirin 81 mg Tablet,Delayed Release (Dr/Ec) 81 mg PO QAM 30 Days Qty: 30 2RF nitroglycerin 0.3 mg tablet, sublingual 0.3 mg sublingual UD Qty: 14 0RF Rx Instructions: PLACE 1 TAB UNDER THE tONGUE NEEDED FOR CHEST PAIN UP TO 3 TABS EVERY 5 MINS; IF UNRELIEVED, CALL Continued calcium carbonate [Tums] 200 mg calcium (500 mg) Tablet,Chewable 400 mg PO DIRECTED PRN (Reason: HALL'S SYNDROME/HEARTBURN/INDIGESTION) Discontinued atorvastatin 20 mg tablet 20 mg PO DAILY amlodipine 10 mg tablet 10 mg PO DAILY benazepril 20 mg tablet 20 mg PO DAILY Discharge Orders: Discharge Order (Routine); Ordered 04/15/22 Ordered By: Yoel Painter/Other Patient Handouts: High Blood Pressure Risk Factors, Heart Attack Dc, Hypertension Dc Admission Data Admit Date/Time: 04/11/22 01:53 Attending Provider: Yoel Singleton Admit Provider: Haylie Herrmann Primary Care Provider: PCP,NO Other Providers: Haylie Herrmann ; Berry Johnson ; Balbir Wong Other Interventions: Discharge Summary Assessment (RN) Last Done: 04/15/22 17:02
[2022-04-15] MEDS ORDERED: OPTIRAY 320 125ml IV ONE (15:51)
--- NOTE | 2022-04-15 16:28 | CT Scan Report ---
CT angio abd pelvis wo/w con CLINICAL HISTORY: ABDOMINAL PAIN, R/O ABD AORTA ANEURYSM LEAK COMPARISON STUDY: CT of the abdomen and pelvis April 11, 2022. TECHNIQUE: Unenhanced and arterial phase imaging of the abdomen and pelvis was performed. Intravenous injection 120 cc Optiray 320 IV was uneventful. Sagittal and coronal reconstructions were viewed as well as maximal intensity projections on an independent 3-D workstation. Automated exposure control w as utilized for the study. A dose lowering technique was utilized adhering to the principles of JAI Fink. FINDINGS: Lung bases are unremarkable. There is thinning of the left ventricular apex consistent with old infarct. There is a tiny outpouching. Trace pericardial effusion is present. No pneumatosis, mikala e air or portal venous gas is present. Arterial phase images of the liver, spleen, adrenal glands and pancreas are unremarkable. There is no biliary or pancreatic ductal dilatation. No peripancreatic or pericholecystic infiltration is present. There is no evidence for a bowel obstruction. Colonic diver ticulosis is noted without evidence for acute diverticulitis. Distal descending colon slightly extend s into a left inguinal hernia. Small bowel loop within a right femoral hernia is noted. There is no r esultant bowel obstruction. Postprocedural changes within the left groin are noted. No significant he matoma is present. There is no lymphadenopathy. There is no ascites. 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 Aneurysm sac measures 4.2 x 3.6 cm. No evidence for ru pture. There is an equivocal tiny endoleak within the anterior aspect of the sac on axial image 202 o f 411. Bilateral iliac limbs are patent. Proximal left internal iliac artery is occluded with distal reconstitution. No dissection is noted. There is mild stenosis at the origin of the celiac axis. This may be due to the median arcuate ligament. Moderate to severe stenosis at the origin of the right re nal artery is noted. There is moderate right renal atrophy. IMPRESSION: 1. Bifurcated aortoiliac stent graft in place. No evidence for rupture. Aneurysm sac measures 4.2 x 3 .6 cm. Equivocal tiny endoleak, as described above. This is of questionable significance. A follow-up endovascular protocol CT could be obtained in 3-6 months for reassessment. 2. No acute process within the abdomen or pelvis on arterial phase exam. 3. 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 Moderate right renal atrophy. 4. Colonic diverticulosis. No evidence for acute diverticulitis. 5. Distal descending colon slightly extends into a left inguinal hernia. Small bowel loop within a ri ght femoral hernia. No resultant bowel obstruction. 6. 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 Trace pericardial effusion. ACT 112: Negative or not required by law. Electronically signed by: Wes Aguilera M.D. 04/15/2022 4:26 PM
[2022-04-15] MEDS ORDERED: hydrALAZINE HCL 25 MG TAB PO STA (16:58)
[2022-04-15] MEDS: MELATONIN 3 MG TAB PO SCH (17:29)
--- NOTE | 2022-04-16 12:24 | Electrocardiogram Report ---
Test Reason : Blood Pressure : / mmHG Vent. Rate : 057 BPM Atrial Rate : 057 BPM P-R Int : 158 ms QRS Dur : 092 ms QT Int : 462 ms P-R-T Axes : 065 -62 164 degrees QTc Int : 449 ms Sinus bradycardia Left axis deviation Old Inferior infarct (cited on or before 10-APR-2022) Possible Old Anterolateral infarct T wave abnormality, consider lateral ischemia T wave abnormality, consider inferior ischemia Abnormal ECG When compared with ECG of 13-APR-2022 06:15, T-wave inversion in multiple leads less pronounced Confirmed by Gopi Coffey ([id number]) on 04/16/2022 12:23:42 PM Referred By: REFERRED SELF Confirmed By:Gopi Coffey
== END 2022-04-15 17:30 | disposition home or self-care (01) | DRG 246 ==
LOC: ED 21:43 → EDINP 04-11 01:53 → SUATTDRO 04-11 01:53 → EDINP 04-11 02:19 → 1E 04-11 04:47 → 2S 04-12 15:41

== ENCOUNTER 2022-04-22 07:38 | Inpatient (IN) ==
[2022-04-22] MEDS ORDERED: SODIUM CHLORIDE 0.9% 500 ML IV ONE (07:50)
[2022-04-22] MEDS ORDERED: SODIUM CHLORIDE 0.9% 250 ML IV PRN (07:50)
[2022-04-22] MEDS ORDERED: PANTOprazole 80 MG in DEXTROSE 5% 100 ML IV STA (07:50)
--- NOTE | 2022-04-22 08:00 | Emergency Department Note ---
Impression & Plan Acute upper gastrointestinal bleeding, Lab test positive for detection of COVID-19 virus ED Provider Note Name: MALDONADO THOMPSON Age: 81 Sex: M Arrives Via: Walk-In Informant: Patient. ED Provider: Arjun Mathews MD Chief Complaint: Vomiting blood Impression: As per impressions above Medical Decision Making: Very pleasant 81-year-old gentleman who was just hospitalized a week and a half ago for cardiac arrest with resuscitation and then stenting. He has been on aspirin/Plavix since and was seen in the ER last night for evaluation of some epigastric discomfort and anxiety. Discharged to home but on getting home was so weak that comes back to the ER for further evaluation. He admits that he vomited several clumps of blood at home. On evaluation he has no abdominal tenderness to palpation he looks well other than he is quite hypotensive and pale appearing. IV established he was given 500 mL IV fluids and his blood pressure responded quickly. Given the concern for bleed held off further fluids while awaiting labs. His hemoglobin is around 9 which is similar to earlier but is significantly dropped from previous hospitalization. I did obtain type and cross at this point do not think we need to transfuse him given his blood pressure improved rapidly and he is in no distress. No clear indication for imaging at this time given soft abdomen no distress. 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 Hospitalist consulted for further management and aware that there are 2 units available if blood pressure were to drop further or hemoglobin were to go further down. Patient on board with this plan as is . Prior Medical Record and Triage/Nursing Notes reviewed by Me Differentials:Diverticulosis, AVM, coagulopathy, colitis, inflammatory bowel disease, malignancy, Birgit-Garibay tear, esophagitis, peptic ulcer disease, variceal bleed, gastritis, epistaxis, fissure, hemorrhoids, as well as other pathologies. Vital Signs: reviewed and remarkable for hypotension Interventions: nss bolus 500mL iv, Protonix 80mg IV Labs:Reviewed and remarkable for anemia Cardiac/Tele Monitoring: Cardiac Monitoring: An Order was placed for continuous cardiac monitoring. The monitor shows a rate of 80 with a normal sinus rhythm. Consults:Hospitalist for further management. Dr Randy Brown Hospitalist Plan: Disposition:Hospitalization. Condition: good History of Present Illness:81-year-old gentleman arrives following an episode of bloody emesis. Patient has a complex last 10 days following a V. fib arrest and stenting of his coronary arteries. He has been at home on aspirin and Plavix. He notes he had a uneventful day yesterday working in the garden throughout the day without any issues. Overnight started develop some epigastric discomfort nausea and anxiety. He was monitored in the ER overnight given some fluids and Ativan and was feeling much better. Work-up at that time was unremarkable. He is discharged home. On getting home he progressively got weaker and more tired. His notes that he almost passed out. This was followed by some mild coughing and then he vomited up 3 teaspoons of blood which she took pictures of. Patient states he may have coughed it up but the makes clear that he seemed to be gagging and vomiting during this. Patient notes some mild epigastric discomfort though no specific pain. He has some mild left lower lateral rib pain which he states has been from coughing. He has no current chest pain or shortness of breath. Patient does note that he has a long history of Hall's esophagus but has not had it followed up in quite some time. He previously was on an antacid but does not think he is taking that anymore. He denies any black or bloody stools that he noticed. No medications prior to arrival. He exertion makes worse rest makes better. No falls, trauma, injuries. He currently denies any headache, neck pain, urinary burning, leg swelling, calf pain, shortness of breath or any other symptoms. He does note some mild bruising over his arms since starting the aspirin Plavix but denies any heavy bleeding or other issues with the blood thinners that he is aware besides this new vomiting of blood. ROS: See above HPI for pertinent positives & negatives. A total of 10 systems reviewed and were otherwise negative. Past Medical History:See Below Past Surgical History:See Below Family History:See Below Social History:See Below Home Medications:See Below Allergies:PNC Vitals:Blood Pressure: 79/49, Pulse 81, RR 18, T 36.3C, O2 95% on RA Physical Exam: GENERAL: Patient is tired appearing and in minimal distress. EYES: No scleral icterus, unremarkable pupils. ENT: Mucous membranes moist, no nasal congestion. NECK: No masses appreciated, nomeningismus, trachea is midline. RESPIRATORY: No dyspnea. Clear to auscultation and equal bilaterally. No wheeze, no rhonchi. CARDIOVASCULAR: Regular rate and rhythm.No murmurs, rubs, gallops appreciated. GASTROINTESTINAL: Abdomen soft, non-tender, no peritonitis.Bowel sounds positive.No masses appreciated. BACK: No midline tenderness, no CVA tenderness EXTREMITIES: Normal motion all extremities, no cyanosis, no edema. NEUROLOGIC: Alert and oriented, no acute motor or sensory deficits, no focal weakness, cranial nerves grossly intact. SKIN: No rash, no jaundice, no diaphoresis. PSYCH: Appropriate GCS: 15 ED Course: Times/Reassessments: Rapid improvement in blood pressure patient feeling well no distress and talking without problems. Arjun Mathews MD Past Med/Surg History Medical History (Updated 04/22/22 @ 14:48 by Arjun Mathews MD) AAA (abdominal aortic aneurysm) CAD (coronary atherosclerotic disease) GIB (gastrointestinal bleeding) Hematemesis History not obtained Hyperlipidemia Hypertension Myocardial infarct Surgical History Status post vascular surgery Family History Other No family history of disorders Social History Smoking Status: Never smoker Tobacco Type: Cigarettes Hx Alcohol Use: Yes Alcohol type: wine Hx Substance Use: No Preferred Language: Arabic Communication Ability: Effective Primer Charger Required: No Beliefs That Will Affect Care: None Current Living Situation: Spouse Feels Safe at Home: Yes Assistive Devices: None Allergies Allergies Allergy/AdvReac Type Severity Reaction Status Date / Time Penicillins Allergy Intermediate HANDS Verified 04/10/22 23:28 BECAME ITCHY Home Meds Home Medications Medication Instructions Recorded Confirmed calcium carbonate 200 mg calcium 400 mg PO DIRECTED PRN 04/10/22 04/22/22 (500 mg) chewable tablet (Tums) HALL'S SYNDROME/HEARTBURN/INDIGESTION Previous Rx's Medication Instructions Recorded aspirin 81 mg tablet,delayed 81 mg PO QAM 30 days #30 tabs 04/15/22 release atorvastatin 40 mg tablet 40 mg PO QAM 30 days #30 tabs 04/15/22 clopidogrel 75 mg tablet 75 mg PO QAM 30 days #30 tabs 04/15/22 hydralazine 25 mg tablet 25 mg PO TID #90 tabs 04/15/22 losartan 50 mg tablet 100 mg PO QAM 30 days #60 tabs 04/15/22 metoprolol succinate 50 mg 50 mg PO QAM 30 days #30 tabs 04/15/22 tablet,extended release 24 hr Results & Data (ED) Vital Signs Vital Signs - 24 hr 04/22/22 07:40 04/22/22 07:43 04/22/22 08:01 Temperature 36.3 C L Temperature Source Temporal Artery Scan Oral Pulse Rate 81 70 Pulse Rate from SpO2 Sensor 69 Respiratory Rate 18 24 Respiratory Effort / Characteristics Non-Labored Spontaneous Respiratory Depth Normal Respiratory Pattern Regular Blood Pressure 79/49 L Blood Pressure Mean 59 Blood Pressure Position Sitting Pulse Oximetry 95 96 Oxygen Delivery Method Room Air Sepsis Recent Fever Within 48 Hours No Sepsis New/Unexplained Change in Mental Status No Sepsis Action Taken by Nursing No Action Required 04/22/22 08:10 04/22/22 08:20 04/22/22 08:30 Temperature Temperature Source Pulse Rate 71 66 76 Pulse Rate from SpO2 Sensor 71 67 73 Respiratory Rate 34 H 25 H 33 H Respiratory Effort / Characteristics Respiratory Depth Respiratory Pattern Blood Pressure Blood Pressure Mean Blood Pressure Position Pulse Oximetry 96 96 95 Oxygen Delivery Method Sepsis Recent Fever Within 48 Hours Sepsis New/Unexplained Change in Mental Status Sepsis Action Taken by Nursing 04/22/22 08:40 04/22/22 08:50 04/22/22 09:00 Temperature Temperature Source Pulse Rate 74 71 Pulse Rate from SpO2 Sensor 75 70 Respiratory Rate 29 H 19 Respiratory Effort / Characteristics Respiratory Depth Respiratory Pattern Blood Pressure 100/45 L Blood Pressure Mean 63 Blood Pressure Position Pulse Oximetry 96 95 Oxygen Delivery Method Sepsis Recent Fever Within 48 Hours Sepsis New/Unexplained Change in Mental Status Sepsis Action Taken by Nursing 04/22/22 09:00 04/22/22 09:10 04/22/22 09:20 Temperature Temperature Source Pulse Rate 78 79 83 Pulse Rate from SpO2 Sensor 73 75 82 Respiratory Rate 24 Respiratory Effort / Characteristics Respiratory Depth Respiratory Pattern Blood Pressure Blood Pressure Mean Blood Pressure Position Pulse Oximetry 95 96 96 Oxygen Delivery Method Sepsis Recent Fever Within 48 Hours Sepsis New/Unexplained Change in Mental Status Sepsis Action Taken by Nursing 04/22/22 10:00 04/22/22 10:00 Temperature Temperature Source Pulse Rate 75 Pulse Rate from SpO2 Sensor 76 Respiratory Rate 23 Respiratory Effort / Characteristics Respiratory Depth Respiratory Pattern Blood Pressure 135/70 Blood Pressure Mean 91 Blood Pressure Position Pulse Oximetry 96 Oxygen Delivery Method Sepsis Recent Fever Within 48 Hours Sepsis New/Unexplained Change in Mental Status Sepsis Action Taken by Nursing Laboratory Data Result diagrams: 04/22/22 14:43 04/22/22 07:55 Lab Results 04/22/22 04/22/22 04/22/22 Range/Units 07:55 07:55 07:55 WBC 13.51 H (4.8-10.8) K/ul RBC 3.43 L (4.63-6.08) M/uL Hgb 9.6 L (14.0-18.0) g/dl Hct 30.7 L (40.1-51.0) % MCV 89.5 (80.0-100.0) fL MCH 28.0 (25.0-34.0) pg MCHC 31.3 L (32.0-36.0) g/dL RDW Std Deviation 45.0 (36.4-46.3) fL RDW Coeff of Nahun 13.7 (11.5-14.5) % Plt Count 391 (130-400) K/uL MPV 10.3 (9.4-12.4) fL Immature Gran % (Auto) 0.4 % Neut % (Auto) 78.8 % Lymph % (Auto) 11.6 % Pine % (Auto) 7.1 % Eos % (Auto) 1.5 % Baso % (Auto) 0.6 % Neut # (Auto) 10.64 H (1.4-6.5) K/uL Lymph # (Auto) 1.57 (1.2-3.4) K/uL Pine # (Auto) 0.96 H (0.24-0.82) K/uL Eos # (Auto) 0.20 (0-0.50) K/uL Baso # (Auto) 0.08 (0-0.2) K/uL Immature Gran # (Auto) 0.06 H (0.00-0.02) K/uL PT 11.9 (9.0-12.0) Seconds INR 1.1 (0.9-1.1) APTT 22.6 (21.0-31.0) Seconds PTT Ratio 0.8 Sodium 142 (136-145) mmol/L Potassium 4.8 (3.5-5.1) mmol/L Chloride 113 H (98-107) mmol/L Carbon Dioxide 23 (21-32) mmol/L Anion Gap 6 (3-11) BUN 47 H (6-23) mg/dl Creatinine 1.20 (0.6-1.4) mg/dl Est Cr Clr Drug Dosing Not Reportable Est GFR ( Amer) 66.3 ml/min Est GFR (Non-Af Amer) 57.2 ml/min BUN/Creatinine Ratio 39.2 H (10-20) Glucose 135 H (70-99(Fasting)) mg/dl Calcium 8.3 L (8.5-10.1) mg/dl Magnesium 1.7 (1.7-2.4) mg/dl Total Bilirubin 0.4 (0.2-1.0) mg/dl Direct Bilirubin 0.1 (0-0.2) mg/dl AST 14 (13-39) U/L ALT 15 (7-52) U/L Alkaline Phosphatase 54 (34-104) U/L Troponin I High Sens 102.0 H* (0-20) pg/ml Total Protein 5.5 L (6.0-8.3) gm/dl Albumin 3.3 L (3.4-5.0) gm/dl Lipase 43 (11-82) U/L SARS-CoV-2, RNA, NAAT (NEGATIVE) Blood Type Blood Type Recheck Antibody Screen Crossmatch 04/22/22 04/22/22 04/22/22 Range/Units 08:00 08:16 09:22 WBC (4.8-10.8) K/ul RBC (4.63-6.08) M/uL Hgb (14.0-18.0) g/dl Hct (40.1-51.0) % MCV (80.0-100.0) fL MCH (25.0-34.0) pg MCHC (32.0-36.0) g/dL RDW Std Deviation (36.4-46.3) fL RDW Coeff of Nahun (11.5-14.5) % Plt Count (130-400) K/uL MPV (9.4-12.4) fL Immature Gran % (Auto) % Neut % (Auto) % Lymph % (Auto) % Pine % (Auto) % Eos % (Auto) % Baso % (Auto) % Neut # (Auto) (1.4-6.5) K/uL Lymph # (Auto) (1.2-3.4) K/uL Pine # (Auto) (0.24-0.82) K/uL Eos # (Auto) (0-0.50) K/uL Baso # (Auto) (0-0.2) K/uL Immature Gran # (Auto) (0.00-0.02) K/uL PT (9.0-12.0) Seconds INR (0.9-1.1) APTT (21.0-31.0) Seconds PTT Ratio Sodium (136-145) mmol/L Potassium (3.5-5.1) mmol/L Chloride (98-107) mmol/L Carbon Dioxide (21-32) mmol/L Anion Gap (3-11) BUN (6-23) mg/dl Creatinine (0.6-1.4) mg/dl Est Cr Clr Drug Dosing Est GFR ( Amer) ml/min Est GFR (Non-Af Amer) ml/min BUN/Creatinine Ratio (10-20) Glucose (70-99(Fasting)) mg/dl Calcium (8.5-10.1) mg/dl Magnesium (1.7-2.4) mg/dl Total Bilirubin (0.2-1.0) mg/dl Direct Bilirubin (0-0.2) mg/dl AST (13-39) U/L ALT (7-52) U/L Alkaline Phosphatase (34-104) U/L Troponin I High Sens (0-20) pg/ml Total Protein (6.0-8.3) gm/dl Albumin (3.4-5.0) gm/dl Lipase (11-82) U/L SARS-CoV-2, RNA, NAAT POSITIVE A* (NEGATIVE) Blood Type O Positive Blood Type Recheck O Positive Antibody Screen NEGATIVE Crossmatch See Detail Administered Medications Pantoprazole Sodium 40 mg/ (Dextrose) 100 mls @ 20 mls/hr IV Q5H FABIAN Stop: 05/22/22 10:44 Last Admin: 04/22/22 11:25 Dose: 8 mg/hr, 20 mls/hr Documented By: HS Discontinued Medications Sodium Chloride (Nss) 500 mls @ 999 mls/hr IV .Q31M ONE Stop: 04/22/22 08:20 Last Infusion: 04/22/22 08:30 Dose: 0 mls/hr Documented By: Admin: 04/22/22 07:57 Dose: 999 mls/hr Documented By: ONUR Pantoprazole Sodium 80 mg/ (Dextrose) 100 mls @ 400 mls/hr IV ONE STA Stop: 04/22/22 08:04 Last Infusion: 04/22/22 08:17 Dose: 0 mls/hr Documented By: Admin: 04/22/22 08:02 Dose: 400 mls/hr Documented By: ONUR Imaging Data Radiologist's Impression: Chest X-Ray 04/22/22 07:50 XR chest 1V portable HISTORY: coughed, left lower chest discomfort COMPARISON: Chest 04/12/2022. FINDINGS: No pneumothorax or no pleural effusions. The heart is top normal in size. As a tortuous thoracic aorta, unchanged. Mild interstitial thickening at the lung bases persists and may be chronic or due to vascular crowding from the low lung volumes. Otherwise, no new focal lung consolidations to suggest pneumonia. No evidence for pulmonary edema. No acute fractures identified within the ribs. IMPRESSION: No significant change compared to the prior study. No acute process. ACT 112: Negative or not required by law. Electronically signed by: Pola Davis M.D. 04/22/2022 8:13 AM Discharge Plan Visit Data Chief Complaint: GI Bleed Stated Complaint: GI BLEED ED Provider: Arjun Mathews Discharge Problem: Acute upper gastrointestinal bleeding, Lab test positive for detection of COVID-19 virus
--- NOTE | 2022-04-22 08:14 | XRay Report ---
XR chest 1V portable HISTORY: coughed, left lower chest discomfort COMPARISON: Chest 04/12/2022. FINDINGS: No pneumothorax or no pleural effusions. The heart is top normal in size. As a tortuous tho racic aorta, unchanged. Mild interstitial thickening at the lung bases persists and may be chronic or due to vascular crowding from the low lung volumes. Otherwise, no new focal lung consolidations to s uggest pneumonia. No evidence for pulmonary edema. No acute fractures identified within the ribs. IMPRESSION: No significant change compared to the prior study. No acute process. ACT 112: Negative or not required by law. Electronically signed by: Pola Davis M.D. 04/22/2022 8:13 AM
[2022-04-22 08:18] LABS: Basophils # (auto) 0.08 K/uL (0-0.2); Basophils % (auto) 0.6 %; Eosinophils % (auto) 1.5 %; Hematocrit (blood only) 30.7 % (40.1-51.0); Hemoglobin 9.6 g/dl (14.0-18.0); Immature Granulocytes # (auto) 0.06 K/uL (0.00-0.02); Immature Granulocytes % (auto) 0.4 %; Lymphocytes # (auto) 1.57 K/uL (1.2-3.4); Lymphocytes % (auto) 11.6 %; Mean Corpuscular Hgb Conc 31.3 g/dL (32.0-36.0); Mean Corpuscular Volume 89.5 fL (80.0-100.0); Mean Platelet Volume 10.3 fL (9.4-12.4); Monocytes # (auto) 0.96 K/uL (0.24-0.82); Monocytes % (auto) 7.1 %; Neutrophils # (auto) 10.64 K/uL (1.4-6.5); Neutrophils % (auto) 78.8 %; Platelet Count 391 K/uL (130-400); RDW Coefficient of Variation 13.7 % (11.5-14.5); Red Blood Count 3.43 M/uL (4.63-6.08); White Blood Count 13.51 K/ul (4.8-10.8)
[2022-04-22 08:28] LABS: INR 1.1 (0.9-1.1); Partial Thromboplastin Ratio 0.8; Partial Thromboplastin Time 22.6 Seconds (21.0-31.0); Prothrombin Time 11.9 Seconds (9.0-12.0)
[2022-04-22 09:09] LABS: Anion Gap 6 (3-11); Blood Urea Nitrogen 47 mg/dl (6-23); Carbon Dioxide 23 mmol/L (21-32); Chloride 113 mmol/L (98-107); Est GFR (African American) 66.3 ml/min; Est GFR (Non-African American) 57.2 ml/min; Potassium 4.8 mmol/L (3.5-5.1); Sodium 142 mmol/L (136-145)
[2022-04-22 09:10] LABS: Alanine Aminotransferase 15 U/L (7-52); Albumin Level 3.3 gm/dl (3.4-5.0); Alkaline Phosphatase 54 U/L (34-104); Aspartate Aminotransferase 14 U/L (13-39); BUN Creatinine Ratio 39.2 (10-20); Bilirubin Direct 0.1 mg/dl (0-0.2); Bilirubin,Total 0.4 mg/dl (0.2-1.0); Calcium 8.3 mg/dl (8.5-10.1); Glucose 135 mg/dl (70-99(Fasting)); Lipase 43 U/L (11-82); Magnesium 1.7 mg/dl (1.7-2.4); Total Protein 5.5 gm/dl (6.0-8.3)
--- NOTE | 2022-04-22 09:46 | History & Physical Report ---
Date of Service April 22, 2022 Assessment & Plan (1) GIB (gastrointestinal bleeding): (2) Hematemesis: (3) Cardiac arrest with ventricular fibrillation: (4) Hypertension: (5) Hyperlipidemia: (6) Anxiety: Plan Mr. Camron Morgan is a 81 year old Male who presented to the [facility] twice this morning with epigastric discomfort and hematemesis; possible GI bleed related to recent anticoagulation initiation. Mr. Morgan was a recent admission from 04/11-04/15 as a heart alert s/p posterior inferior NSTEMI with VF arrest s/p PCI with 100% occlusion and stent placement to the DA. He received one shock and Amiodarone. At that time he was started on ASA and Plavix. GI and Cards consult placed. Protonix gtt started; plan for EGD 04/23. Pt and hesitant for admission. GIB Hematemesis: -Baseline Hgb from 03/23/2022: 14.5; 0425 10.4; now 9.6. Type/Cross done and blood consent obtained. -Pt reports gagging with hematemesis; quantity unreliable. Pt reports medicine cup full, but reports more. -Pt has been Type and Crossed in the ED. -Pt was started on ASA and Plavix a few weeks ago; on hold. -Received 0.9% NS 500mL in ED; SBP holding 100-110; was 79/49 when presented to ED. -Start Protonix gtt -Will keep NPO for possible endoscopy; ok for sips with meds. -Discussed with EVERETTE KOHLER Cardiac Arrest with Ventricular fibrillation: -Recent admission from 04/11-04/15 as a heart alert s/p posterior inferior NSTEMI with VF arrest s/p PCI with 100% occlusion and stent placement to the DA. -He received one shock and Amiodarone. -At that time he was started on ASA and Plavix -Follows outpatient Cards; Dr. Shelton. -Troponin in ED 102; will trend; however I believe this is from previous injury. -Cardiology consult placed for pre-EGD related to cards history.; -I discussed with Dr. Berumen; since patient is just weeks out from cardiac intervention; continue ASA and hold Plavix for procedure; rounding provider to reevaluate. HTN: -Takes Metoprolol 50 mg PO QAM; continue with hold parameters. -Takes Cozaar 100mg PO QAM; hold for now. Reevaluate restarting after EGD -Takes Hydralazine 25 mg PO TID; hold for now. Reevaluate restarting after EGD Hyperlipidemia: -Takes Atorvastatin 40 mg PO QAM; continue Anxiety: -Was given Ativan in the ED; does not take anything at baseline. Disposition: PCP: None Code Status: Full Code; however, does not wish to have prolonged ventilator intervention if no expectation of him returning to baseline functional status. Goal to return home after discharge. History of Present Illness Chief Complaint: hematemesis Primary Care Provider: NO PCP Mr. Camron Morgan is a 81 year old Male who presented to the [facility] twice this morning with epigastric discomfort and hematemesis. Initially he came in with epigastric discomfort and anxiety. 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 When they arrived home, she reports that he was ashen potts and incredible weak; so they returned to the ED. Mr. Morgan was a recent admission from 04/11-04/15 as a heart alert s/p posterior inferior NSTEMI with VF arrest s/p PCI with 100% occlusion and stent placement to the DA. He received one shock and Amiodarone. At that time he was started on ASA and Plavix for dual antiplatelet therapy. An ECHO was performed at that time with an EF of 36%. He has tested positive for COVID-19; however, is day #11 and unlikely to require airborne isolation precaution. Additional PMH includes Hall's esophagus, AAA, CAD, HLD, HTN, and AMI. Camron denies dizziness, CP, palpitations, lower back pain, SOB, bloody stools, urinary changes, skin changes/rashes. Patient will be admitted under observation for further management and evaluation. Please see A/P for further details. Allergies Allergy/AdvReac Type Severity Reaction Status Date / Time Penicillins Allergy Intermediate HANDS Verified 04/10/22 23:28 BECAME ITCHY Home Medications Medication Instructions Recorded Confirmed Type calcium carbonate 200 mg calcium 400 mg PO DIRECTED PRN 04/10/22 04/22/22 History (500 mg) chewable tablet (Tums) HALL'S SYNDROME/HEARTBURN/INDIGESTION aspirin 81 mg tablet,delayed 81 mg PO QAM 30 days #30 tabs 04/15/22 04/22/22 Rx release atorvastatin 40 mg tablet 40 mg PO QAM 30 days #30 tabs 04/15/22 04/22/22 Rx clopidogrel 75 mg tablet 75 mg PO QAM 30 days #30 tabs 04/15/22 04/22/22 Rx hydralazine 25 mg tablet 25 mg PO TID #90 tabs 04/15/22 04/22/22 Rx losartan 50 mg tablet 100 mg PO QAM 30 days #60 tabs 04/15/22 04/22/22 Rx metoprolol succinate 50 mg 50 mg PO QAM 30 days #30 tabs 04/15/22 04/22/22 Rx tablet,extended release 24 hr Past Med/Surg History Medical History AAA (abdominal aortic aneurysm) CAD (coronary atherosclerotic disease) GIB (gastrointestinal bleeding) Hematemesis History not obtained Hyperlipidemia Hypertension Myocardial infarct Surgical History Status post vascular surgery Family History Other No family history of disorders Social History Smoking Status: Former smoker Tobacco Type: Cigarettes Second Hand Exposure: No; Do You Dip or Chew Tobacco: No; Tobacco Cessation Education Requested by Patient: No Hx Alcohol Use: Yes Alcohol type: beer and wine Hx Substance Use: No Preferred Language: Zambian Communication Ability: Effective Health Informatics Instructor Required: No Beliefs That Will Affect Care: None Current Living Situation: Spouse Other Information That Helps Us Care for You: No Feels Safe at Home: Yes Safety Concerns: Feels Safe At This Time Assistive Devices: None Review of Systems Review of Systems: Neuro: (-) Falls, trauma, slurred speech HEENT: (-) MOSES, dizziness, dysphagia, visual or auditory changes CV: (-) CP, palpitations, swelling Resp: (-) SOB GI: (+) heme emesis (-) appetite changes, N/D, bowel changes : (-) urinary changes Skin: (-) rashes Psych: (-) anxiety currently, depression Physical Exam Physical Exam: Neuro: AAOx4, PERRLA, no aphagia, memory changes, CNII-XII grossly intact HEENT: head normocephalic, moist mucus membranes CV: S1/S2, (+) Murmur (-) G/R, (-) edema, cap refill < 3 seconds Resp: Lungs CTA in all [place]. On RA GI: Abdomen S/NT/ND, Ax4 bowel sounds, (-) CVA tenderness Musculoskeletal: 5/5 B/L UE strength, 5/5 B/L LE strength. No gait disturbance Skin: (-) rashes , (-) erythema. Psych: euthymic mood Results & Data Results & Data ([facility]) Vital Signs (Past 12 Hours) Vital Signs Temp Pulse Resp BP Pulse Ox O2 Del Method 04/22/22 09:20 83 96 04/22/22 09:10 79 24 96 04/22/22 09:00 78 95 04/22/22 09:00 100/45 L 04/22/22 08:50 71 19 95 04/22/22 08:40 74 29 H 96 04/22/22 08:30 76 33 H 95 04/22/22 08:20 66 25 H 96 04/22/22 08:10 71 34 H 96 04/22/22 08:01 70 24 96 04/22/22 07:40 36.3 C L 81 18 79/49 L 95 Room Air Laboratory Results Short CBC 04/22/22 Range/Units 07:55 WBC 13.51 H (4.8-10.8) K/ul Hgb 9.6 L (14.0-18.0) g/dl Hct 30.7 L (40.1-51.0) % Plt Count 391 (130-400) K/uL BMP 04/22/22 07:55 Sodium 142 Potassium 4.8 Chloride 113 H Carbon Dioxide 23 BUN 47 H Creatinine 1.20 Glucose 135 H Calcium 8.3 L Liver Function 04/22/22 Range/Units 07:55 Total Bilirubin 0.4 (0.2-1.0) mg/dl Direct Bilirubin 0.1 (0-0.2) mg/dl AST 14 (13-39) U/L ALT 15 (7-52) U/L Alkaline Phosphatase 54 (34-104) U/L Albumin 3.3 L (3.4-5.0) gm/dl Diagnostic Findings Chest X-Ray 04/22/22 07:50 XR chest 1V portable HISTORY: coughed, left lower chest discomfort COMPARISON: Chest 04/12/2022. FINDINGS: No pneumothorax or no pleural effusions. The heart is top normal in size. As a tortuous thoracic aorta, unchanged. Mild interstitial thickening at the lung bases persists and may be chronic or due to vascular crowding from the low lung volumes. Otherwise, no new focal lung consolidations to suggest pneumonia. No evidence for pulmonary edema. No acute fractures identified within the ribs. IMPRESSION: No significant change compared to the prior study. No acute process. ACT 112: Negative or not required by law. Electronically signed by: Pola Davis M.D. 04/22/2022 8:13 AM ECG Additional Comments: NSR HR 73 EDY 150 ms QRS 76 ms QTc 458 Code Status & VTE Plan Code Status Full code in the event of cardiac and respiratory arrest VTE Prophylaxis Plan VTE Prophylaxis will be ordered: Yes Supervising Physician Co-Signing Physician Notes 81-year-old gentleman with PMH of recent NSTEMI last week status post stent within the distal PDA who had an arrest before the stent was placed but then made a full recovery came in with complaints of abdominal pain and vomiting blood in the morning of the day of arrival. Patient denies any NSAIDs but reports taking baby aspirin 2 tablets only once since discharge last week. Patient is on DAPT after stent. Hemoglobin stable today but has dropped from last week. GI on board for hematemesis, cardiology on board due to recent history of STEMI and need for procedure clearance. Discussed with cardiology, plan to continue Plavix for now and hold aspirin but chances of restenosis is high due to him having stent placed recently but at the same time of risk of bleeding is also high w/ DAPT and need for procedure tomorrow. Continue with Protonix and resume aspirin as soon as possible with GI clearance. NPO, for scope tomorrow. As of now patient remains hemodynamically stable without further hematemesis. Upon Exam : GENERAL: Alert and oriented x3. NAD, on RA. HEENT: No pallor, no icterus. Pupils equal, round and reactive to light. Oral mucosa moist. NECK: No JVD, no neck masses. HEART: S1 and S2 heard. Regular rate and rhythm. No murmur, no gallop. RESPIRATORY SYSTEM: Normal AP diameter. No accessory muscle use. No wheezing, no crackles. ABDOMEN: Soft, bowel sounds present, nontender, no distention. CENTRAL NERVOUS SYSTEM: No facial droop. Speech is clear. Obeys simple commands. Moves extremities. EXTREMITIES: No edema, no erythema seen. I have seen and examined the patient and have discussed the case with the provider above. I agree with the assessment and plan as stated.
[2022-04-22] MEDS ORDERED: MAGNESIUM HYDROXIDE SUSP 30 ML UDC PO PRN (10:17)
[2022-04-22] MEDS ORDERED: ALUMINUM/MAGNESIUM SUSP 30 ML UDC PO PRN (10:17)
[2022-04-22] MEDS ORDERED: POLYETHYLENE (MIRALAX) 17 GM PACK PO PRN (10:17)
[2022-04-22] MEDS ORDERED: ACETAMINOPHEN 325 MG TAB PO PRN (10:17)
[2022-04-22] MEDS: PANTOprazole 40 MG in DEXTROSE 5% 100 ML IV SCH ×3 (11:25→22:51)
--- NOTE | 2022-04-22 11:40 | Gastrointestinal Consultation ---
Date of Consultation April 22, 2022 Assessment & Plan (1) Hematemesis: UGI most likely from gastritis or ulcer disease, in the setting of dual antiplatelet therapy. Cardiology consult for clearance for EGD tomorrow, and management of cardiac issues in light of recent [place]. Hold Plavix and aspirin. Keep n.p.o. or just ice chips today then n.p.o. after midnight. We will plan for EGD early tomorrow morning approximately 8 AM. Supervising Physician Co-Signing Physician Notes Late entry: Patient was seen and examined on 04/22 with JOSE F Mosley whose note reflects our findings and plan. History of Present Illness Reason for Consultation: GI Bleed Attending Physician: Rafaela Padilla MD History of Present Illness Mr. Camron Morgan is a 81 yr old male pt w/o a local PCP who lives in [place] most of the year but adkins here in [facility]. He carries a hx of CAD, HTN, hyperlipidemia, AAA, and experienced an [place] w stenting on 04/12/22. He is on Plavix and Aspirin both taken most recently yesterday morning. 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 He was hypotensive on arrival but responded to IV fluids. He is awake, alert, oriented and tells me that his abd feels OK now but he had a lot of epigastric and LUQ abd pain last night. He reports having taking ibuprofen frequently until the time of his [place] on . He denies any black or bloody BMs, no diarrhea. He also admits to typically drinking a moderate amt of alcohol though doesn't say exactly how much - somewhere around 2 drinks a day. On arrival BUN is elevated at 47, Hb is 9.6 (was 10 last night and 13 on 04/12). CXR is (-). He hasn't had further gross GI bleeding since arrival. He is awake, alert, oriented and hemodynamically stable. Allergies Allergy/AdvReac Type Severity Reaction Status Date / Time Penicillins Allergy Intermediate HANDS Verified 04/10/22 23:28 BECAME ITCHY Home Medications Medication Instructions Recorded Confirmed Type calcium carbonate 200 mg calcium 400 mg PO DIRECTED PRN 04/10/22 04/22/22 History (500 mg) chewable tablet (Tums) HALL'S SYNDROME/HEARTBURN/INDIGESTION aspirin 81 mg tablet,delayed 81 mg PO QAM 30 days #30 tabs 04/15/22 04/22/22 Rx release atorvastatin 40 mg tablet 40 mg PO QAM 30 days #30 tabs 04/15/22 04/22/22 Rx clopidogrel 75 mg tablet 75 mg PO QAM 30 days #30 tabs 04/15/22 04/22/22 Rx hydralazine 25 mg tablet 25 mg PO TID #90 tabs 04/15/22 04/22/22 Rx losartan 50 mg tablet 100 mg PO QAM 30 days #60 tabs 04/15/22 04/22/22 Rx metoprolol succinate 50 mg 50 mg PO QAM 30 days #30 tabs 04/15/22 04/22/22 Rx tablet,extended release 24 hr Patient History Medical History AAA (abdominal aortic aneurysm) CAD (coronary atherosclerotic disease) GIB (gastrointestinal bleeding) Hematemesis History not obtained Hyperlipidemia Hypertension Myocardial infarct Surgical History Status post vascular surgery Family History Other No family history of disorders Social History Smoking Status: Former smoker Tobacco Type: Cigarettes Second Hand Exposure: No; Do You Dip or Chew Tobacco: No; Tobacco Cessation Education Requested by Patient: No Hx Alcohol Use: Yes Alcohol type: beer and wine Hx Substance Use: No Preferred Language: Bengali Communication Ability: Effective Buttermaker Continuous Churn Required: No Beliefs That Will Affect Care: None Current Living Situation: Spouse Other Information That Helps Us Care for You: No Feels Safe at Home: Yes Safety Concerns: Feels Safe At This Time Assistive Devices: None Review of Systems Review of Systems: ROS: (since discharge from last admission a wk ago). Gen: + weakness No fevers or weight loss Eyes: No eye redness, or pain, no recent vision changes Resp: + mild cough x a few wks. + mild SOB Cardio: No palpitations/irregular beats, no chest pain GI: No abdominal pain, no nausea/vomiting : Denies pain on urination Skin: No jaundice, itching or new rashes Physical Exam Physical Exam: He is awake alert oriented, afebrile and now normotensive without tachycardia after IV fluids. Eyes: PERRL, conjunctivae normal, anicteric sclerae Neck: trachea midline, no thyromegaly Respiratory: normal respiratory effort, lungs clear to auscultation Cardiovascular: RRR, no murmur, no edema Gastrointestinal (Abdomen): Very mild epigastric tenderness on palpation otherwise negative Skin: no rashes, warm and dry Neurologic: PERRL, EOMI, accommodation nl, no face palsy, no dysarthria Psychiatric: A+Ox3, euthymic affect Lymphatic: no cervical or axillary lymphadenopathy Results & Data ([facility]) Vital Signs (Past 12 Hours) Vital Signs Temp Pulse Resp BP Pulse Ox O2 Del Method 04/22/22 09:20 83 96 04/22/22 09:10 79 24 96 04/22/22 09:00 78 95 04/22/22 09:00 100/45 L 04/22/22 08:50 71 19 95 04/22/22 08:40 74 29 H 96 04/22/22 08:30 76 33 H 95 04/22/22 08:20 66 25 H 96 04/22/22 08:10 71 34 H 96 04/22/22 08:01 70 24 96 04/22/22 07:40 36.3 C L 81 18 79/49 L 95 Room Air Laboratory Results WBC 13, Hb 9.6, HCT 33.7, PLT S3 91, PT 11.9, INR 1.1, sodium 142, K4.8, CL 113, CO2 23, BUN 47, CR 1.2, troponin elevated at 102, COVID initially positive on 721 and continues positive again today. Diagnostic Findings Chest x-ray without acute abnormality
--- NOTE | 2022-04-22 12:37 | Electrocardiogram Report ---
Test Reason : Blood Pressure : / mmHG Vent. Rate : 073 BPM Atrial Rate : 073 BPM P-R Int : 150 ms QRS Dur : 076 ms QT Int : 416 ms P-R-T Axes : 062 -48 226 degrees QTc Int : 458 ms Normal sinus rhythm Left axis deviation Inferior infarct (cited on or before 10-APR-2022) Anterior infarct (cited on or before 11-APR-2022) Marked T wave abnormality, consider lateral ischemia Abnormal ECG When compared with ECG of 22-APR-2022 04:21, (unconfirmed) Serial changes of Anterior infarct Present Confirmed by Delano Terrazas ([id number]) on 04/22/2022 12:36:52 PM Referred By: REFERRED SELF Confirmed By:Orestes Terrazas
[2022-04-22 14:57] LABS: Hematocrit (blood only) 29.9 % (40.1-51.0); Hemoglobin 9.4 g/dl (14.0-18.0)
[2022-04-22] MEDS ORDERED: CALCIUM CARBONATE 500 MG CHEWABLE TAB PO PRN (15:01)
[2022-04-22] MEDS ORDERED: ASPIRIN 81 MG ECTAB PO SCH (15:30)
--- NOTE | 2022-04-22 15:43 | Cardiology Consultation ---
Date of Consultation April 22, 2022 Assessment & Plan (1) Acute upper gastrointestinal bleeding: (2) Lab test positive for detection of COVID-19 virus: (3) Hematemesis: (4) CAD (coronary atherosclerotic disease): (5) Stented coronary artery: Plan The patient is currently clinically stable however, within the first 7 to 10 days of coronary stenting there is a high likelihood of thrombosis. Therefore, antiplatelet agents need to be continued. I think it is reasonable to stop his aspirin but the patient has to remain on Plavix 75 mg daily. The GI service has been consulted. He is on a Protonix drip. His hemoglobin on admission was 9.6 and should be followed. If things should change clinically and the patient develop a reoccurrence of ACS and or continued or virgil GI bleeding, there should be a low threshold to transfer the patient to [facility]. Currently we have no interventional coverage at this hospital. History of Present Illness Attending Physician: Rafaela Padilla MD History of Present Illness This is a 81-year-old male patient who presented with a STEMI last week and received a stent within the distal PDA. He did have an arrest before the stent was placed but then made a full recovery and was able to be discharged home. This morning he had some abdominal pain and vomited into a trash can. His has a picture she took with her cell phone and it appears to be bloody emesis. 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 He has had no melena or hematochezia. His hemoglobin is 9.6. He has no current complaints. Allergies Allergy/AdvReac Type Severity Reaction Status Date / Time Penicillins Allergy Intermediate HANDS Verified 04/10/22 23:28 BECAME ITCHY Home Medications Medication Instructions Recorded Confirmed Type calcium carbonate 200 mg calcium 400 mg PO DIRECTED PRN 04/10/22 04/22/22 History (500 mg) chewable tablet (Tums) HALL'S SYNDROME/HEARTBURN/INDIGESTION aspirin 81 mg tablet,delayed 81 mg PO QAM 30 days #30 tabs 04/15/22 04/22/22 Rx release atorvastatin 40 mg tablet 40 mg PO QAM 30 days #30 tabs 04/15/22 04/22/22 Rx clopidogrel 75 mg tablet 75 mg PO QAM 30 days #30 tabs 07/25/22 08/01/22 Rx hydralazine 25 mg tablet 25 mg PO TID #90 tabs 04/15/22 04/22/22 Rx losartan 50 mg tablet 100 mg PO QAM 30 days #60 tabs 04/15/22 04/22/22 Rx metoprolol succinate 50 mg 50 mg PO QAM 30 days #30 tabs 04/15/22 04/22/22 Rx tablet,extended release 24 hr Patient History Medical History AAA (abdominal aortic aneurysm) CAD (coronary atherosclerotic disease) GIB (gastrointestinal bleeding) Hematemesis History not obtained Hyperlipidemia Hypertension Myocardial infarct Surgical History Status post vascular surgery Family History Other No family history of disorders Social History Smoking Status: Former smoker Tobacco Type: Cigarettes Second Hand Exposure: No; Do You Dip or Chew Tobacco: No; Tobacco Cessation Education Requested by Patient: No Hx Alcohol Use: Yes Alcohol type: beer and wine Hx Substance Use: No Preferred Language: Lithuanian Communication Ability: Effective Line Inspector Required: No Beliefs That Will Affect Care: None Current Living Situation: Spouse Other Information That Helps Us Care for You: No Feels Safe at Home: Yes Safety Concerns: Feels Safe At This Time Assistive Devices: None Review of Systems Review of Systems: Review of Systems: See HPI for pertinent positives. All other 10 point review of systems are negative. Physical Exam Physical Exam: General: no acute distress and stated age Head: normocephalic, no masses, lesions, tenderness or abnormalities Eyes: conjunctiva are pink and non-injected, sclera clear Neck: supple, no adenopathy, no bruits, normal jugular venous pulse, no hepatojugular reflux Chest: normal shape and normal respiratory effort Lungs: clear to auscultation and percussion Cardiac Exam: - regular rate & rhythm, no murmurs gallops or rubs - normal S1, normal S2 Pulses: 2(+) throughout Abdomen: abdomen soft, non-tender, no abnormal masses and no hepatosplenomegaly Musculoskeletal: no gait disturbance, no joint inflammation, no deforming arthritis Extremities: no edema and no cyanosis Neuro: grossly normal exam Results & Data ([facility]) Vital Signs (Past 12 Hours) Vital Signs Temp Pulse Resp BP Pulse Ox O2 Del Method O2 Del Method 04/22/22 13:00 81 21 95 04/22/22 13:00 112/61 04/22/22 12:00 84 94 04/22/22 11:00 77 26 H 94 04/22/22 11:00 125/48 L 04/22/22 10:00 75 23 96 04/22/22 10:00 135/70 04/22/22 11:01 Room Air 04/22/22 09:20 83 96 04/22/22 09:10 79 24 96 04/22/22 09:00 78 95 04/22/22 09:00 100/45 L 04/22/22 08:50 71 19 95 04/22/22 08:40 74 29 H 96 04/22/22 08:30 76 33 H 95 04/22/22 08:20 66 25 H 96 04/22/22 08:10 71 34 H 96 04/22/22 08:01 70 24 96 04/22/22 07:40 36.3 C L 81 18 79/49 L 95 Room Air Laboratory Results Laboratory Results - last 24 hr 04/22/22 04/22/22 04/22/22 07:55 07:55 07:55 WBC 13.51 H RBC 3.43 L Hgb 9.6 L Hct 30.7 L MCV 89.5 MCH 28.0 MCHC 31.3 L RDW Std Deviation 45.0 RDW Coeff of Nahun 13.7 Plt Count 391 MPV 10.3 Immature Gran % (Auto) 0.4 Neut % (Auto) 78.8 Lymph % (Auto) 11.6 Chase % (Auto) 7.1 Eos % (Auto) 1.5 Baso % (Auto) 0.6 Neut # (Auto) 10.64 H Lymph # (Auto) 1.57 Chase # (Auto) 0.96 H Eos # (Auto) 0.20 Baso # (Auto) 0.08 Immature Gran # (Auto) 0.06 H PT 11.9 INR 1.1 APTT 22.6 PTT Ratio 0.8 Sodium 142 Potassium 4.8 Chloride 113 H Carbon Dioxide 23 Anion Gap 6 BUN 47 H Creatinine 1.20 Est Cr Clr Drug Dosing Not Reportable Est GFR ( Amer) 66.3 Est GFR (Non-Af Amer) 57.2 BUN/Creatinine Ratio 39.2 H Glucose 135 H Calcium 8.3 L Magnesium 1.7 Total Bilirubin 0.4 Direct Bilirubin 0.1 AST 14 ALT 15 Alkaline Phosphatase 54 Troponin I High Sens 102.0 H* Total Protein 5.5 L Albumin 3.3 L Lipase 43 SARS-CoV-2, RNA, NAAT Blood Type Blood Type Recheck Antibody Screen Crossmatch 04/22/22 04/22/22 04/22/22 08:00 08:16 09:22 WBC RBC Hgb Hct MCV MCH MCHC RDW Std Deviation RDW Coeff of Nahun Plt Count MPV Immature Gran % (Auto) Neut % (Auto) Lymph % (Auto) Chase % (Auto) Eos % (Auto) Baso % (Auto) Neut # (Auto) Lymph # (Auto) Chase # (Auto) Eos # (Auto) Baso # (Auto) Immature Gran # (Auto) PT INR APTT PTT Ratio Sodium Potassium Chloride Carbon Dioxide Anion Gap BUN Creatinine Est Cr Clr Drug Dosing Est GFR ( Amer) Est GFR (Non-Af Amer) BUN/Creatinine Ratio Glucose Calcium Magnesium Total Bilirubin Direct Bilirubin AST ALT Alkaline Phosphatase Troponin I High Sens Total Protein Albumin Lipase SARS-CoV-2, RNA, NAAT POSITIVE A* Blood Type O Positive Blood Type Recheck O Positive Antibody Screen NEGATIVE Crossmatch See Detail 04/22/22 04/22/22 14:43 15:24 WBC RBC Hgb 9.4 L Hct 29.9 L MCV MCH MCHC RDW Std Deviation RDW Coeff of Nahun Plt Count MPV Immature Gran % (Auto) Neut % (Auto) Lymph % (Auto) Chase % (Auto) Eos % (Auto) Baso % (Auto) Neut # (Auto) Lymph # (Auto) Chase # (Auto) Eos # (Auto) Baso # (Auto) Immature Gran # (Auto) PT INR APTT PTT Ratio Sodium Potassium Chloride Carbon Dioxide Anion Gap BUN Creatinine Est Cr Clr Drug Dosing Est GFR ( Amer) Est GFR (Non-Af Amer) BUN/Creatinine Ratio Glucose Calcium Magnesium Total Bilirubin Direct Bilirubin AST ALT Alkaline Phosphatase Troponin I High Sens Pending Total Protein Albumin Lipase SARS-CoV-2, RNA, NAAT Blood Type Blood Type Recheck Antibody Screen Crossmatch Medications Administered Current Inpatient Medications Acetaminophen (Acetaminophen 325 Mg Tab) 650 mg PO Q4H PRN PRN Reason: Pain or Fever Stop: 05/22/22 10:16 Al Hydrox/Mg Hydrox/Simethicone (Aluminum/Magnesium Susp 30 Ml Udc) 15 ml PO Q4H PRN PRN Reason: Dyspepsia Stop: 05/22/22 10:16 Aspirin (Aspirin 81 Mg Ectab) 81 mg PO [facility] Stop: 05/22/22 15:29 Last Admin: 04/22/22 15:39 Dose: 81 mg Atorvastatin Calcium (Atorvastatin 40 Mg Tab) 40 mg PO [facility] Stop: 05/23/22 08:59 Calcium Carbonate (Calcium Carbonate 500 Mg Chewable Tab) 400 mg PO DIRECTED PRN PRN Reason: HALL'S SYNDROME/HEARTBURN/INDIGESTION Stop: 05/22/22 15:00 Clopidogrel Bisulfate (Clopidogrel Bisulfate 75 Mg Tab) 75 mg PO [facility] Stop: 05/22/22 15:59 Sodium Chloride (Nss) 250 mls @ 15 mls/hr IV .[id number] PRN PRN Reason: For Transfusion Stop: 04/22/22 17:50 Pantoprazole Sodium 40 mg/ (Dextrose) 100 mls @ 20 mls/hr IV Q5H [facility] Stop: 05/22/22 10:44 Last Admin: 04/22/22 11:25 Dose: 8 mg/hr, 20 mls/hr Magnesium Hydroxide (Magnesium Hydroxide Susp 30 Ml Udc) 30 ml PO Q12H PRN PRN Reason: Constipation Stop: 05/22/22 10:16 Metoprolol Succinate (Metoprolol Succ 50mg Ext Rel Tab) 50 mg PO [facility] Stop: 05/23/22 08:59 Polyethylene Glycol (Polyethylene (Miralax) 17 Gm Pack) 17 gm PO DAILY PRN PRN Reason: Constipation Stop: 05/22/22 10:16
[2022-04-22] MEDS: CLOPIDOGREL BISULFATE 75 MG TAB PO SCH (16:26)
[2022-04-23 02:04] LABS: Appearance Urine Clear (Clear); Bilirubin Urine Negative (Negative); Blood Urine Negative (Negative); Color Urine Yellow; Glucose Urine UA Negative (Negative); Ketones Urine Negative (Negative); Leukocyte Esterase Urine Negative (Negative); Nitrite Urine Negative (Negative); Protein Urine Negative (Negative); Specific Gravity Urine 1.021 (1.000-1.030); Urobilinogen Urine Negative (Negative)
[2022-04-23] MEDS: PANTOprazole 40 MG in DEXTROSE 5% 100 ML IV SCH ×4 (03:41→17:50)
[2022-04-23] MEDS: CLOPIDOGREL BISULFATE 75 MG TAB PO SCH (08:07)
[2022-04-23 08:11] LABS: Hemoglobin 9.2 g/dl (14.0-18.0); Mean Corpuscular Hgb Conc 30.7 g/dL (32.0-36.0); Mean Corpuscular Volume 91.5 fL (80.0-100.0); Mean Platelet Volume 10.4 fL (9.4-12.4); Platelet Count 401 K/uL (130-400); RDW Standard Deviation 47.4 fL (36.4-46.3); Red Blood Count 3.28 M/uL (4.63-6.08)
[2022-04-23 08:57] LABS: BUN Creatinine Ratio 44.2 (10-20); Calcium 8.7 mg/dl (8.5-10.1); Creatinine Clr Calc Pharmacy 41.9 ml/min; Est GFR (African American) 60.7 ml/min; Est GFR (Non-African American) 52.4 ml/min; Potassium 3.6 mmol/L (3.5-5.1)
[2022-04-23] MEDS: METOPROLOL SUCC 50MG EXT REL TAB PO SCH (09:20)
[2022-04-23] MEDS: ATORVASTATIN 40 MG TAB PO SCH (09:20)
--- NOTE | 2022-04-23 09:25 | Communication Note ---
Date of Service: April 23, 2022 Spoke with anesthesia and cardiology this AM regarding patient and clinical plan going forward. 81 yo male with very recent HI and fresh cardiac stent on ASA and Plavix. He had been taking several doses of ibuprofen daily leading up to his coronary event. Admitted now after an episode of hematemesis at home. Hgb dropped form 14 during admission with HI to mid 9's. BUN elevated in the 40-50's range. No vomiting since prior ot admission. No abd pain, nausea or vomiting since admission. 2 dark BM this AM. H/H is stable suggesting bleeding has stopped. Presumably he has an ulcer related to NSAIDs complicated after addition of antiplatelet therapy. On PPI gtt. He is clearly high risk for anesthesia. He clearly can NOT stop his antiplatelet therapy. He is hemodynamically stable. Plan is to hold off on endoscopy unless he develops s/s of recurrent bleeding. COnservative mgt with 72 hours of PPI gtt. OK to allow him to have clear li quids today. If any sign of evolving cardiac or Gi instability, he should hbe transferred to [facility] as we do not have a cardiac chief controller center at [facility] this week. Discussed in detail with patient. Called his and left message for her to return my call as well.
--- NOTE | 2022-04-23 09:51 | Gastroenterology Progress Note ---
Date of Service April 23, 2022 Assessment & Plan (1) Hematemesis: Plan: UGI most likely from gastritis or ulcer disease, in the setting of dual antiplatelet therapy. Plan According to Cardiology can stop ASA, but must continue Plavix. Appreciate opinion. Continue PPI drip x total 72 hrs. Will start a clear liquid diet today. Will continue to follow closely. If gross GI bleeding and further drop in Hb/Hct -> transfer. See supplemental communication note from Dr. Schneider. Admission and Anticipated Discharge Date Admission Date: April 22, 2022 Supervising Physician Co-Signing Physician Notes See my note dated yesterday for detail. Agree with Wandy Ly Subjective 81 yr old Had been taking NSAIDs regularly. RI, stenting 04/12. On Plavix/ASA. Pt stopped taking NSAIDs at the time of RI. Presented for epigastric pain, then vomiting of about 70ml of bloody emesis that occurred around 6AM yesterday, no further vomiting. Today denies abd pain, passed two small black, formed BMs, Hb stable post vomi ting yesterday. BUN still elevated at 57. Being tx as active COVID. Positive since 04/12, mild cough. Review of Systems Review of Systems: ROS: (since discharge from last admission a wk ago). Gen: "feel fine today" Denies fever, chills, weakness, fatigue No fevers or weight loss Eyes: No eye redness, or pain, no recent vision changes Resp: + mild cough x a few wks. Denies SOB Cardio: No palpitations/irregular beats, no chest pain GI: No abdominal pain, no nausea/vomiting + 2 formed black BMs this morning : Denies pain on urination Skin: No jaundice, itching or new rashes Physical Exam Physical Exam: AAO, normotensive. Eyes: PERRL, conjunctivae normal, anicteric sclerae Neck: trachea midline, no thyromegaly Respiratory: normal respiratory effort, lungs clear to auscultation Cardiovascular: RRR, no murmur, no edema Gastrointestinal (Abdomen): normal bowel sounds, soft, nontender, no hepatosplenomegaly Skin: no rashes, warm and dry Neurologic: PERRL, EOMI, accommodation nl, no face palsy, no dysarthria Psychiatric: A+Ox3, euthymic affect Lymphatic: no cervical or axillary lymphadenopathy Results & Data ([facility]) Vital Signs (Past 12 Hours) Vital Signs Temp Pulse Pulse Resp BP Pulse Ox O2 Del Method 04/23/22 07:00 36.5 C 85 18 114/64 94 Room Air 04/23/22 03:22 36.8 C 67 16 133/71 94 Room Air 04/22/22 22:18 71 Laboratory Results WBC 12.7, Hb 9.2, Hct 30, Plts 401, Na 145, K 3.6, Cl 116, CO2 22, BUN 57, Cr 1.29
--- NOTE | 2022-04-23 10:38 | Cardiology Progress Note ---
Date of Service April 23, 2022 Assessment & Plan (1) Acute upper gastrointestinal bleeding: (2) Lab test positive for detection of COVID-19 virus: (3) Hematemesis: (4) CAD (coronary atherosclerotic disease): (5) Stented coronary artery: Plan The patient is currently clinically stable. The GI service will be treating the patient conservatively with a PPI drip. No EGD is planned at this time unless the patient has additional bleeding. As previously indicated, the patient needs to stay on at least Plavix 75 mg daily. The aspirin can be discontinued. I spoke at length with the patient's by phone and with the patient himself. They do not want him to be transferred to [facility] at this time unless there is a clinical change in his course. I do not believe it is unreasonable for the patient to stay at [facility] at present. Admission and Anticipated Discharge Date Admission Date: April 22, 2022 Subjective The patient has had no additional hematemesis. No chest pain or other cardiac complaints today. Review of Systems Review of Systems: Review of Systems: See HPI for pertinent positives. All other 10 point review of systems are negative. Physical Exam Physical Exam: General: no acute distress and stated age Head: normocephalic, no masses, lesions, tenderness or abnormalities Eyes: conjunctiva are pink and non-injected, sclera clear Neck: supple, no adenopathy, no bruits, normal jugular venous pulse, no hepatojugular reflux Chest: normal shape and normal respiratory effort Lungs: clear to auscultation and percussion Cardiac Exam: - regular rate & rhythm, no murmurs gallops or rubs - normal S1, normal S2 Pulses: 2(+) throughout Abdomen: abdomen soft, non-tender, no abnormal masses and no hepatosplenomegaly Musculoskeletal: no gait disturbance, no joint inflammation, no deforming arthritis Extremities: no edema and no cyanosis Neuro: grossly normal exam Results & Data ([facility]) Vital Signs (Past 12 Hours) Vital Signs Temp Pulse Resp BP Pulse Ox O2 Del Method 04/23/22 09:00 Room Air 04/23/22 07:00 36.5 C 85 18 114/64 94 Room Air 04/23/22 03:22 36.8 C 67 16 133/71 94 Room Air Laboratory Results Laboratory Results - last 24 hr 04/22/22 04/22/22 04/22/22 14:43 15:24 19:23 WBC RBC Hgb 9.4 L Hct 29.9 L MCV MCH MCHC RDW Std Deviation RDW Coeff of Nahun Plt Count MPV Sodium Potassium Chloride Carbon Dioxide Anion Gap BUN Creatinine Est Cr Clr Drug Dosing Est GFR ( Amer) Est GFR (Non-Af Amer) BUN/Creatinine Ratio Glucose Calcium Troponin I High Sens 105.5 H* 107.8 H* Urine Color Urine Appearance Urine pH Ur Specific [place] Urine Protein Urine Glucose (UA) Urine Ketones Urine Blood Urine Nitrite Urine Bilirubin Urine Urobilinogen Ur Leukocyte Esterase 04/23/22 04/23/22 04/23/22 01:07 07:49 07:49 WBC 12.70 H RBC 3.28 L Hgb 9.2 L Hct 30.0 L MCV 91.5 MCH 28.0 MCHC 30.7 L RDW Std Deviation 47.4 H RDW Coeff of Nahun 14.0 Plt Count 401 H MPV 10.4 Sodium Potassium Chloride Carbon Dioxide Anion Gap BUN Creatinine Est Cr Clr Drug Dosing Est GFR ( Amer) Est GFR (Non-Af Amer) BUN/Creatinine Ratio Glucose Calcium Troponin I High Sens 108.5 H* 117.9 H* Urine Color Urine Appearance Urine pH Ur Specific [place] Urine Protein Urine Glucose (UA) Urine Ketones Urine Blood Urine Nitrite Urine Bilirubin Urine Urobilinogen Ur Leukocyte Esterase 04/23/22 04/23/22 07:49 Unknown WBC RBC Hgb Hct MCV MCH MCHC RDW Std Deviation RDW Coeff of Nahun Plt Count MPV Sodium 145 Potassium 3.6 D Chloride 116 H Carbon Dioxide 22 Anion Gap 7 BUN 57 H Creatinine 1.29 Est Cr Clr Drug Dosing 41.9 Est GFR ( Amer) 60.7 Est GFR (Non-Af Amer) 52.4 BUN/Creatinine Ratio 44.2 H Glucose 105 H Calcium 8.7 Troponin I High Sens Urine Color Yellow Urine Appearance Clear Urine pH 5.0 Ur Specific [place] 1.021 Urine Protein Negative Urine Glucose (UA) Negative Urine Ketones Negative Urine Blood Negative Urine Nitrite Negative Urine Bilirubin Negative Urine Urobilinogen Negative Ur Leukocyte Esterase Negative Medications Administered Current Inpatient Medications Acetaminophen (Acetaminophen 325 Mg Tab) 650 mg PO Q4H PRN PRN Reason: Pain or Fever Stop: 05/22/22 10:16 Al Hydrox/Mg Hydrox/Simethicone (Aluminum/Magnesium Susp 30 Ml Udc) 15 ml PO Q4H PRN PRN Reason: Dyspepsia Stop: 05/22/22 10:16 Aspirin (Aspirin 81 Mg Ectab) 81 mg PO [facility] Stop: 05/22/22 15:29 Last Admin: 04/22/22 15:39 Dose: 81 mg Atorvastatin Calcium (Atorvastatin 40 Mg Tab) 40 mg PO [facility] Stop: 05/23/22 08:59 Last Admin: 04/23/22 09:20 Dose: 40 mg Clopidogrel Bisulfate (Clopidogrel Bisulfate 75 Mg Tab) 75 mg PO [facility] Stop: 05/22/22 15:59 Last Admin: 04/23/22 08:07 Dose: 75 mg Pantoprazole Sodium 40 mg/ (Dextrose) 100 mls @ 20 mls/hr IV Q5H [facility] Stop: 05/22/22 10:44 Last Admin: 04/23/22 08:06 Dose: 8 mg/hr, 20 mls/hr Magnesium Hydroxide (Magnesium Hydroxide Susp 30 Ml Udc) 30 ml PO Q12H PRN PRN Reason: Constipation Stop: 05/22/22 10:16 Metoprolol Succinate (Metoprolol Succ 50mg Ext Rel Tab) 50 mg PO [facility] Stop: 05/23/22 08:59 Last Admin: 04/23/22 09:20 Dose: 50 mg Polyethylene Glycol (Polyethylene (Miralax) 17 Gm Pack) 17 gm PO DAILY PRN PRN Reason: Constipation Stop: 05/22/22 10:16
--- NOTE | 2022-04-23 15:47 | Hospitalist Progress Note ---
Date of Service April 23, 2022 Assessment & Plan (1) GIB (gastrointestinal bleeding): (2) Hematemesis: (3) Cardiac arrest with ventricular fibrillation: (4) Hypertension: (5) Hyperlipidemia: (6) Anxiety: Plan 81-year-old gentleman with PMH of recent NSTEMI last week status post stent within the distal PDA who had an arrest before the stent was placed but then made a full recovery came in with complaints of abdominal pain and vomiting blood in the morning of the day of arrival.He has past history of ibuprofen [atleast 2 tablets a day] use but claims that he had not used since after discharge from his last admission. He is being managed for the following: Likely upper GIB Hematemesis: Recent H/o NSTEMI s/p stent c/b VF arrest [see above] h/o NSAID use [see above] -Recent admission 04/11-04/15 for NSTEMI s/p stent Cx/b VF arrest before stent was placed but then made a full recovery -Pt presented w/ gagging w/ hematemesis x 2 on the day of arrival, h/o NSAIDs use until recent past. On DAPT d/t stenting currently. -Baseline Hgb from 03/23/2022: 14.5; admitting Hb in mid 9's. -D/w cardio, ok to dc aspirin in light of GI bleed, c/w plavix. -Per GI, no EGD scope d/t high risk, since Hb has been stable iv PPI for now w/ close monitoring, ok for clears. -family doesn't want transfer at this point, pt is clinically stable now, but if unstable w/ either further bleeding or chest pain, transfer is indicated. Recent h/o Cardiac Arrest with Ventricular fibrillation: during stenting for NSTEMI, started on DAPT, cards on board, dc aspirin, c/w plavix. HTN: takes metoprolol, cozaar and hydralazine, resume w/ parameters. Caution in the light of GI bleed l/t hypotension. Hyperlipidemia: c/w statin. Full code DVT Px: SCDs, re- gi bleed Dispo: to be monitored for 2 more days, initiate transfer process if patient is unstable clinically [see above]. Admission and Anticipated Discharge Date Admission Date: April 22, 2022 Subjective Patient seen and examined at bedside for follow-up of hematemesis, likely upper GI bleed on the background of recent stenting on DAPT. Patient was sitting up in chair, on room air, NAD, no new acute events overnight. Patient denies any further vomiting of blood while in the hospital. Patient denies any chest pain or feeling of heart racing or belly pain or other review of symptoms. Patient was n.p.o. in the morning but since no active GI intervention at this point, patient is started on clear liquid diet. Patient to remain on PPI IV for total of 72 hours. Patient had 2 black bowel movements in the morning. Physical Exam Physical Exam: GENERAL: Alert and oriented x3. NAD, on RA. HEENT: No pallor, no icterus. Pupils equal, round and reactive to light. Oral mucosa moist. NECK: No JVD, no neck masses. HEART: S1 and S2 heard. Regular rate and rhythm. No murmur, no gallop. RESPIRATORY SYSTEM: Normal AP diameter. No accessory muscle use. No wheezing, no crackles. ABDOMEN: Soft, bowel sounds present, nontender, no distention. CENTRAL NERVOUS SYSTEM: No facial droop. Speech is clear. Obeys simple commands. Moves extremities. EXTREMITIES: No edema, no erythema seen. Results & Data Results & Data ([facility]) Vital Signs (Past 12 Hours) Vital Signs Temp Pulse Pulse Resp BP BP Pulse Ox 04/23/22 15:29 36.5 C 62 18 142/57 H 04/23/22 11:00 36.3 C L 77 16 139/73 97 04/23/22 09:00 04/23/22 07:00 36.5 C 85 18 114/64 94 O2 Del Method 04/23/22 15:29 04/23/22 11:00 Room Air, Nasal Cannula 04/23/22 09:00 Room Air 04/23/22 07:00 Room Air
[2022-04-23] MEDS ORDERED: SODIUM CHLORIDE 0.9% 250 ML IV PRN (19:08)
--- NOTE | 2022-04-23 19:25 | Communication Note ---
Date of Service: April 23, 2022 Refer to today's progress note for full detail on the background. I was paged late evening for bloody stool which was flushed before noted by RN, but patient reports " a little" trace red blood with the stool. There was blood stains in the bed sheets. Stat hemoglobin was ordered and came out 8.0. Patient was evaluated at bedside, patient's family including patient's and dtr were present at bedside. Pt denied chest pain. Updated about dropping hemoglobin and the plan per GI/cardio was if any deterioration in his clinical condition it will need transfer to tertiary care center. The is well aware of the plan as was communicated by GI and cardio earlier during the day to his . The patient and his declined transfer and would like to continue to observe the patient while in here. d/w cardio. Given dropping hemoglobin and recent cardiac arrest/NSTEMI status post stent on Plavix only currently, will transfuse 1 unit of blood. Repeat hemoglobin at 10 PM or 1 hour after the transfusion is done. For close monitoring patient is being transferred to ICU. Discussed with [facility].
--- NOTE | 2022-04-23 19:32 | Communication Note ---
Date of Service: April 23, 2022 Pt and his is aware that by not initiating transfer process in timely manner, he could . They accept the risk and wants to continue to manage zehra ent here in the hospital. They are aware we don't have interventional cardiology in house at the moment.
[2022-04-23] MEDS: hydrALAZINE HCL 25 MG TAB PO SCH (21:57)
--- NOTE | 2022-04-23 22:34 | Critical Care Progress Note ---
Date of Service April 23, 2022 Assessment & Plan (1) Acute upper gastrointestinal bleeding: Plan: Impression: 81-year-old male presents to the ICU following ACS with V. fib cardiac arrest in which ROSC was achieved with defibrillation and CPR on 04/11. He is now status post PCI with WALLACE x1 to RDPA. Developed hematemesis on 04/22 and now anemic receiving 1 unit RBCs and transferred to ICU as unable to stop Plavix. Too high risk for EGD and family not interested and transferred to tertiary center unless patient were to decompensate. Continue medical management in ICU for now Neuro - CAM ICU: Negative No evidence of anoxic deficit following cardiac arrest Cardiac - Cardiac arrestROSC achieved with 1 round CPR and defibrillationOn 04/12. No deficits. NSTEMIstatus post successful PCI of mid RPDA with WALLACE x1 -History of CO with stent x2 approximately 10 years ago -Admitted to ICU for further monitoring -Echo with moderately reduced LV systolic function with EF calculated at 36%. Grade 1 diastolic dysfunction -Cardiology recommendations with GI bleed to continue Plavix and hold aspirin as patient is very high risk for restenosis of stent - Continue MTB, statin, hydralazine, losartan Respiratory - Currently maintaining oxygen saturation On room air. No history of pulmonary disease. No respiratory distress GI - Acute GI bleedPatient with hematemesis and now developing anemia. Receiving 1 unit RBCs - GI following and and recommended transfer to tertiary center as patient would be high risk for EGD on Plavix and cannot hold Plavix. However, family not interested in transfer unless patient decompensates so monitoring in ICU - Continue Protonix drip -Hold ASA and blood thinners -N.p.o. RENAL/LYTES - Creatinine within normal limit. Monitor routine BMPs and replete electrolytes as indicated -strict I's and O's ENDO - No history of diabetes or thyroid disease ICU hyperglycemic protocol HEME - Acute blood loss anemia Secondary to acute GI bleed. See above - Receiving 1 unit RBCs now.Trend H&H -Coags within normal limits ID - No indication for infectious process at this time Patient did test positive for COVID on PCR but claims symptoms started 4 weeks ago. Was unaware he was positive. -No evidence of active disease at this time. We will keep on precautions for now and monitor LINES/IV ACCESS - Peripheral IVs DVT PROPHYLAXIS - SCDs Thank you for allowing us to participate in the care of this patient. Please refer to my attending physician's documentation for any further recommendations. (2) Stented coronary artery: (3) Hematemesis: (4) Lab test positive for detection of COVID-19 virus: (5) GIB (gastrointestinal bleeding): (6) Nausea: (7) Anxiety: (8) NSTEMI (non-ST elevation myocardial infarction): (9) Cardiac arrest with ventricular fibrillation: Admission and Anticipated Discharge Date Admission Date: April 22, 2022 Subjective Mr. Morgan is a 81-year-old male that was initially admitted to ICU on 04/12 following V. fib arrest and NSTEMI for which she received PCI to the DA. As of yesterday patient began to have hematemesis and was started on Protonix drip. Hemoglobin has recently dropped to 8 and he is now receiving 1 unit RBCs. Due to risk of restenosis of stent he is unable to discontinue Plavix for endoscope. Recommendation for transfer to tertiary center was recommended by the patient and the family are not interested at this time and would like to proceed with medical management. However, they stated that they would be interested in the event he were to decompensate. Patient does remain full code. Due to the nature of his illness and risk for decompensation it was recommended by cardiology that he be monitored in ICU for which she is now being transferred back to the ICU. Review of Systems Review of Systems: On arrival to the ICU the patient is alert and oriented and hemodynamically stable. He denies any headaches or dizziness, syncope, cough or congestion, fevers, chest pain or palpitations, shortness of breath, nausea vomiting or diarrhea, swelling in hands or feet. Physical Exam Constitutional: WD/WN, vitals as above Eyes: PERRL, conjunctivae normal, anicteric sclerae ENMT: external ear and nose normal, oropharynx normal Neck: trachea midline, no thyromegaly Respiratory: normal respiratory effort, lungs clear to auscultation Cardiovascular: RRR, no murmur, no edema Heart Sounds: normal S1 and normal S2 Vessels: no JVD Extremities: normal capillary refill Gastrointestinal (Abdomen): normal bowel sounds, soft, nontender, no hepatosplenomegaly Musculoskeletal: no cyanosis or clubbing, extremities motor strength 5/5 Skin: no rashes, warm and dry Neurologic: PERRL, EOMI, accommodation nl, no face palsy, no dysarthria Psychiatric: A+Ox3, euthymic affect Results & Data Results & Data ([facility]) Vital Signs (Past 12 Hours) Vital Signs Temp Pulse Pulse Pulse Resp BP BP 04/23/22 20:36 36.6 C 66 19 156/63 H 04/23/22 20:51 37.1 C 66 18 158/70 H 04/23/22 20:13 36.8 C 71 18 164/88 H 04/23/22 19:44 36.7 C 66 19 160/56 H 04/23/22 16:31 04/23/22 15:30 04/23/22 16:21 61 04/23/22 15:29 36.5 C 62 18 142/57 H 04/23/22 11:00 36.3 C L 77 16 BP Pulse Ox O2 Del Method 04/23/22 20:36 97 04/23/22 20:51 98 04/23/22 20:13 96 04/23/22 19:44 97 Room Air 04/23/22 16:31 Room Air 04/23/22 15:30 96 Room Air 04/23/22 16:21 04/23/22 15:29 04/23/22 11:00 139/73 97 Room Air, Nasal Cannula Coding Level of Care Code 76876 Subseq Hosp Care Lvl 2 Diagnoses Acute upper gastrointestinal bleeding K92.2 Stented coronary artery Z95.5 Hematemesis K92.0 Lab test positive for detection of COVID-19 virus U07.1 GIB (gastrointestinal bleeding) K92.2 Nausea R11.0 Anxiety F41.9 NSTEMI (non-ST elevation myocardial infarction) I21.4 Cardiac arrest with ventricular fibrillation I46.9; I49.01
[2022-04-24] MEDS: PANTOprazole 40 MG in DEXTROSE 5% 100 ML IV SCH ×6 (00:25→23:02)
[2022-04-24] MEDS ORDERED: MELATONIN 3 MG TAB PO PRN (00:37)
[2022-04-24 01:08] LABS: Hematocrit (blood only) 27.3 % (40.1-51.0); Hemoglobin 8.8 g/dl (14.0-18.0)
[2022-04-24 06:13] LABS: Hematocrit (blood only) 26.1 % (40.1-51.0); Hemoglobin 8.6 g/dl (14.0-18.0); Mean Corpuscular Hemoglobin 28.8 pg (25.0-34.0); Mean Corpuscular Volume 87.3 fL (80.0-100.0); Mean Platelet Volume 10.2 fL (9.4-12.4); Platelet Count 297 K/uL (130-400); RDW Coefficient of Variation 14.8 % (11.5-14.5); RDW Standard Deviation 47.6 fL (36.4-46.3); Red Blood Count 2.99 M/uL (4.63-6.08); White Blood Count 10.53 K/ul (4.8-10.8)
[2022-04-24 06:47] LABS: BUN Creatinine Ratio 28.4 (10-20); Calcium 8.1 mg/dl (8.5-10.1); Creatinine Clr Calc Pharmacy 46.6 ml/min; Est GFR (Non-African American) 59.6 ml/min; Magnesium 1.9 mg/dl (1.7-2.4); Phosphorus 3.2 mg/dl (2.5-4.9); Potassium 3.8 mmol/L (3.5-5.1)
--- NOTE | 2022-04-24 07:05 | Critical Care Progress Note ---
Date of Service April 24, 2022 Assessment & Plan (1) Acute upper gastrointestinal bleeding: (2) Stented coronary artery: (3) Hematemesis: (4) Lab test positive for detection of COVID-19 virus: (5) NSTEMI (non-ST elevation myocardial infarction): (6) GIB (gastrointestinal bleeding): (7) Cardiac arrest with ventricular fibrillation: Plan Camron is a 81 year old male w/ PmHx CAD, AAA, ROSC from V fib cardiac arrest s/p PCI w/ WALLACE x1 to RDPA 04/11, presenting to ICU for hematemesis w/ drop in hemoglobin requiring transfusion. Neuro CAM ICU: Negative Cardiac ROSC Post Cardiac Arrest -V. Fib arrest requiring one round CPR and defibrillation 04/10/2022, no deficits. NSTEMI -Hx of ND w/ stent placement x2, 2 years ago -Following cardiac arrest, s/p successful PCI w/ WALLACE x1 to RPDA -Echo 03/2022 w/ EF 36%, mod reduced LV systolic function. -Troponin 101 on entry, 117 this AM, has not peaked yet. -Cardiology consulted - recommend hold ASA, cont Plavix due to patient high risk for restenosis of stent. -Continue metoprolol, statin, losartan, hydralazine. Respiratory No history of pulmonary disease, saturating well on room air. GI Acute GI bleed -Patient w/ hematemesis w/ development of anemia as below. -Patient started on ASA and Plavix from stent placement, management per cardiology as above. -Past history of upper GI ulcer per patient, may be related to ulcer + antiplatelet. -GI consulted -In setting of anti-platelet therapy, patient high risk for EGD. Would need to go to tertiary facility if staying on Plavix. -Patient and family decided against transfer to tertiary facility, would like to be monitored here. -Continue PPI drip x72 hrs. If gross GI bleed and H&H drop revisit transfer to tertiary facility. -Continue to monitor. Renal/Electrolytes Creatinine within normal limits, monitor electrolytes, repleted 2g Mg, 40meq KCl. Strict I&O's. Endo No history of diabetes or thyroid disease. ICU hyperglycemia protocol Heme Acute Blood Loss Anemia -Secondary to acute upper GI bleed as above. -Baseline hemoglobin from 03/2022 14.5, 9.5 on admission, dropped to 8.0 -Transfused 1 unit of PRBC 04/24. -Continue to monitor H&H, transfuse for Hgb <8 ID No concern for infectious process at this time. Patient tested positive for COVID on PCR for admission however he states symptoms started 4 weeks ago and unaware positive. Will maintain precautions for now however patient afebrile, saturating well on room air at current time. Nursing to reach out to Infectious control for clarification on timeframe for isolation. Lines/IV Access Peripheral IVs DVT Prophylaxis SCDs Dispo: ICU, downgrade with close observation. Admission and Anticipated Discharge Date Admission Date: April 22, 2022 Supervising Physician Co-Signing Physician Notes Dr. Montero was resident physician during care of patient. I separately evaluated patient for claros portions of the history and the exam. I was present during the critical portion of medical decision making, and I discussed the case with the resident. I generally agree with the findings and plan. Patient requires dual antiplatelet therapy secondary to recent arrest and intervention, gastroenterology unable to perform an EGD secondary to high risk features. Patient declines transfer for interventional radiology intervention. At this point we are continuing to closely monitor his H&H and transfuse as required. He is not requiring critical care interventions and if he decompensates it necessitates emergent transfer most likely via helicopter EMS to tertiary care for interventional radiology. I discussed the case with car diology and we will proceed with downgrade and close observation. Subjective Patient seen at the bedside this morning. Patient states he feels well except for a sick sensation in his upper mid abdominal region he says feels similar to past instance of an ulcer. He has also been experiencing some nausea associated with this. He denies any chest pain, shortness of breath, fevers, chills at this time. Review of Systems Constitutional: as per Subjective / HPI Physical Exam Constitutional: WD/WN, vitals as above Eyes: PERRL, conjunctivae normal, anicteric sclerae Respiratory: normal respiratory effort, lungs clear to auscultation Cardiovascular: RRR, no murmur, no edema Gastrointestinal (Abdomen): BS+, soft, non-distended, mild tenderness to palpation at epigastric region. Results & Data Results & Data ([facility]) Vital Signs (Past 12 Hours) Vital Signs Temp Pulse Pulse Resp BP BP Pulse Ox 04/24/22 00:00 67 04/24/22 03:33 63 20 93 04/24/22 03:33 117/38 L 04/24/22 01:58 74 28 H 95 04/24/22 01:58 128/54 L 04/24/22 00:34 81 21 95 04/24/22 00:34 157/73 H 04/24/22 00:00 36.7 C 71 29 H 96 04/23/22 23:34 68 26 H 96 04/23/22 23:34 120/50 L 04/23/22 23:32 68 18 96 04/23/22 23:32 116/57 L 04/23/22 23:00 68 24 98 04/23/22 23:42 36.7 C 61 21 120/50 L 95 04/23/22 23:21 36.7 C 63 21 120/50 L 95 04/23/22 22:21 36.7 C 66 18 146/58 H 97 04/23/22 21:21 36.7 C 78 18 153/61 H 96 04/23/22 20:00 04/23/22 20:36 36.6 C 66 19 156/63 H 97 04/23/22 20:51 37.1 C 66 18 158/70 H 98 04/23/22 20:13 36.8 C 71 18 164/88 H 96 04/23/22 19:44 36.7 C 66 19 160/56 H 97 O2 Del Method 04/24/22 00:00 04/24/22 03:33 04/24/22 03:33 04/24/22 01:58 04/24/22 01:58 04/24/22 00:34 04/24/22 00:34 04/24/22 00:00 04/23/22 23:34 04/23/22 23:34 04/23/22 23:32 04/23/22 23:32 04/23/22 23:00 04/23/22 23:42 04/23/22 23:21 04/23/22 22:21 04/23/22 21:21 04/23/22 20:00 Room Air 04/23/22 20:36 04/23/22 20:51 04/23/22 20:13 04/23/22 19:44 Room Air Resident Activity Tracking Resident Involvement: Resident Care Provided Care Provided: Adult Hospital Medicine
[2022-04-24] MEDS ORDERED: ONDANSETRON 4 MG OD TAB PO PRN (08:07)
[2022-04-24] MEDS ORDERED: ONDANSETRON INJ 2 MG/ML 2 ML VIAL IV PRN (08:14)
--- NOTE | 2022-04-24 09:43 | Cardiology Progress Note ---
Date of Service April 24, 2022 Assessment & Plan (1) Acute upper gastrointestinal bleeding: (2) Lab test positive for detection of COVID-19 virus: (3) Hematemesis: (4) CAD (coronary atherosclerotic disease): (5) Stented coronary artery: Plan The patient is currently clinically stable. At midnight last night his hemoglobin was 8.8 and then on morning labs it is 8.6. He did receive 1 unit of blood yesterday. According the patient he has had no additional hematemesis or melena. He has no complaints of chest pain or shortness of breath. I would continue current treatment. I once again discussed with the patient the seriousness of his situation and the benefits of transferring to a tertiary care facility. The patient is at present adamant about not being transferred. Admission and Anticipated Discharge Date Admission Date: April 22, 2022 Subjective The patient is currently in the ICU. He did receive 1 unit of blood yesterday. Currently his hemoglobin is 8.6. At midnight last night hemoglobin was 8.8. He denies any additional hemoptysis or melena. Review of Systems Review of Systems: Review of Systems: See HPI for pertinent positives. All other 10 point review of systems are negative. Physical Exam Physical Exam: General: no acute distress and stated age Head: normocephalic, no masses, lesions, tenderness or abnormalities Eyes: conjunctiva are pink and non-injected, sclera clear Neck: supple, no adenopathy, no bruits, normal jugular venous pulse, no hepatojugular reflux Chest: normal shape and normal respiratory effort Lungs: clear to auscultation and percussion Cardiac Exam: - regular rate & rhythm, no murmurs gallops or rubs - normal S1, normal S2 Pulses: 2(+) throughout Abdomen: abdomen soft, non-tender, no abnormal masses and no hepatosplenomegaly Musculoskeletal: no gait disturbance, no joint inflammation, no deforming arthritis Extremities: no edema and no cyanosis Neuro: grossly normal exam Results & Data ([facility]) Vital Signs (Past 12 Hours) Vital Signs Temp Pulse Resp BP Pulse Ox 04/24/22 08:00 75 30 H 96 04/24/22 07:34 75 28 H 96 04/24/22 07:34 129/52 L 04/24/22 07:00 78 25 H 96 04/24/22 06:00 88 30 H 95 04/24/22 05:00 73 22 94 04/24/22 04:00 83 29 H 95 04/24/22 00:00 67 04/24/22 03:33 63 20 93 04/24/22 03:33 117/38 L 04/24/22 01:58 74 28 H 95 04/24/22 01:58 128/54 L 04/24/22 00:34 81 21 95 04/24/22 00:34 157/73 H 04/24/22 00:00 36.7 C 71 29 H 96 04/23/22 23:34 68 26 H 96 04/23/22 23:34 120/50 L 04/23/22 23:32 68 18 96 04/23/22 23:32 116/57 L 04/23/22 23:00 68 24 98 04/23/22 23:42 36.7 C 61 21 120/50 L 95 04/23/22 23:21 36.7 C 63 21 120/50 L 95 04/23/22 22:21 36.7 C 66 18 146/58 H 97 Laboratory Results Laboratory Results - last 24 hr 04/22/22 04/23/22 04/24/22 08:16 18:31 00:58 WBC RBC Hgb 8.0 L 8.8 L Hct 27.3 L MCV MCH MCHC RDW Std Deviation RDW Coeff of Nahun Plt Count MPV Sodium Potassium Chloride Carbon Dioxide Anion Gap BUN Creatinine Est Cr Clr Drug Dosing Est GFR ( Amer) Est GFR (Non-Af Amer) BUN/Creatinine Ratio Glucose Calcium Phosphorus Magnesium Blood Type O Positive Antibody Screen NEGATIVE Crossmatch See Detail 04/24/22 04/24/22 05:52 05:52 WBC 10.53 RBC 2.99 L Hgb 8.6 L Hct 26.1 L MCV 87.3 MCH 28.8 MCHC 33.0 RDW Std Deviation 47.6 H RDW Coeff of Nahun 14.8 H Plt Count 297 MPV 10.2 Sodium 144 Potassium 3.8 Chloride 115 H Carbon Dioxide 24 Anion Gap 5 BUN 33 H D Creatinine 1.16 Est Cr Clr Drug Dosing 46.6 Est GFR ( Amer) 69.0 Est GFR (Non-Af Amer) 59.6 BUN/Creatinine Ratio 28.4 H Glucose 97 Calcium 8.1 L Phosphorus 3.2 Magnesium 1.9 Blood Type Antibody Screen Crossmatch
--- NOTE | 2022-04-24 09:58 | Billing Data ---
Date of Service April 24, 2022 Coding Level of Care Code 08171 Subseq Obs Care Lvl 3
[2022-04-24] MEDS ORDERED: LORazepam 0.5 MG in SYRINGE 0.25 ML IV STA (10:16)
[2022-04-24 11:29] LABS: Hematocrit (blood only) 28.8 % (40.1-51.0); Hemoglobin 9.2 g/dl (14.0-18.0)
[2022-04-24] MEDS: ATORVASTATIN 40 MG TAB PO SCH (11:31)
[2022-04-24] MEDS: METOPROLOL SUCC 50MG EXT REL TAB PO SCH (11:31)
[2022-04-24] MEDS: LOSARTAN POTASSIUM 50 MG TAB PO SCH (11:32)
[2022-04-24] MEDS: hydrALAZINE HCL 25 MG TAB PO SCH ×3 (11:32→20:08)
[2022-04-24] MEDS: CLOPIDOGREL BISULFATE 75 MG TAB PO SCH (11:32)
[2022-04-24] MEDS: POTASSIUM CHLORIDE / WTR 10 MEQ/100 ML PLCT IV SCH ×4 (12:26→15:32)
[2022-04-24] MEDS: MAGNESIUM SULFATE / D5W 1 GM/100 ML BAG IV SCH ×2 (12:26→14:40)
--- NOTE | 2022-04-24 13:52 | Hospitalist Progress Note ---
Date of Service April 24, 2022 Assessment & Plan (1) GIB (gastrointestinal bleeding): (2) Hematemesis: (3) Cardiac arrest with ventricular fibrillation: (4) Hypertension: (5) Hyperlipidemia: (6) Anxiety: Plan 81-year-old gentleman with PMH of recent NSTEMI last week status post stent within the distal PDA who had an arrest before the stent was placed but then made a full recovery came in with complaints of abdominal pain and vomiting blood in the morning of the day of arrival.He has past history of ibuprofen [atleast 2 tablets a day] use but claims that he had not used since after discharge from his last admission. He is being managed for the following: Likely upper GIB Hematemesis: Recent H/o NSTEMI s/p stent c/b VF arrest [see above] h/o NSAID use [see above] -Recent admission 04/11-04/15 for NSTEMI s/p stent Cx/b VF arrest before stent was placed but then made a full recovery -Pt presented w/ gagging w/ hematemesis x 2 on the day of arrival, h/o NSAIDs use until recent past. On DAPT d/t stenting currently. -Baseline Hgb from 03/23/2022: 14.5; admitting Hb in mid 9's. -D/w cardio, ok to dc aspirin in light of GI bleed, c/w plavix. -Per GI, no EGD scope d/t high risk, since Hb has been stable iv PPI for now w/ close monitoring, ok for clears. -family doesn't want transfer at this point, pt is clinically stable now, but if unstable w/ either further bleeding or chest pain, transfer is indicated. - hgb stable overnight, no reccurent hematemesis - continue PPI IV drip ending tonight - PPI BID starting 04/25/2022 Recent h/o Cardiac Arrest with Ventricular fibrillation: during stenting for NSTEMI, started on DAPT, cards on board, dc aspirin, c/w plavix. HTN: takes metoprolol, cozaar and hydralazine, resume w/ parameters. Caution in the light of GI bleed l/t hypotension. Hyperlipidemia: c/w statin. Full code DVT Px: SCDs, re- gi bleed Dispo: to be monitored for 1 more day, initiate transfer process if patient is unstable clinically [see above]. Admission and Anticipated Discharge Date Admission Date: April 22, 2022 Subjective The patient is a 81 year old man with pmh KS s/p PCI (03/2022), s/p Cardiac arrest, HTN, HLD, anxiety who presetned with hematemesis and drop in Hgb. Patient high risk for EGD given recent KS and cardiac arrest, recommended transfer to tertiary care center but patient declined. Cardiology consulted and holding aspirin, continue plavix. PPI drip x72 hours followed by PPI BID x2 weeks. Monitored for recurrent GIB. Patient denies any episodes of hematemesis, melena, chest pain, light headedness, dizziness, bloody stools, abdominal pain, n/v/d. Review of Systems Review of Systems: Neuro: (-) Falls, trauma, slurred speech HEENT: (-) MOSES, dizziness, dysphagia, visual or auditory changes CV: (-) CP, palpitations, swelling Resp: (-) SOB GI: (-) heme emesis (-) appetite changes, N/D, bowel changes : (-) urinary changes Skin: (-) rashes Psych: (-) anxiety currently, depression Physical Exam Constitutional: WD/WN, vitals as above Eyes: PERRL, conjunctivae normal, anicteric sclerae ENMT: external ear and nose normal, oropharynx normal Neck: trachea midline, no thyromegaly Respiratory: normal respiratory effort, lungs clear to auscultation Cardiovascular: RRR, no murmur, no edema Gastrointestinal (Abdomen): normal bowel sounds, soft, nontender, no hepatosplenomegaly Musculoskeletal: no cyanosis or clubbing, extremities motor strength 5/5 Skin: no rashes, warm and dry Neurologic: patellar DTR's 2+ bilat, sensation intact and PERRL, EOMI, accommodation nl, no face palsy, no dysarthria Psychiatric: A+Ox3, euthymic affect Results & Data Results & Data ([facility]) Vital Signs (Past 12 Hours) Vital Signs Pulse Resp BP Pulse Ox 04/24/22 08:00 75 04/24/22 08:00 75 30 H 96 04/24/22 07:34 75 28 H 96 04/24/22 07:34 129/52 L 04/24/22 07:00 78 25 H 96 04/24/22 06:00 88 30 H 95 04/24/22 05:00 73 22 94 04/24/22 04:00 83 29 H 95 04/24/22 03:33 63 20 93 04/24/22 03:33 117/38 L 04/24/22 01:58 74 28 H 95 04/24/22 01:58 128/54 L Laboratory Results Short CBC 04/23/22 04/24/22 04/24/22 Range/Units 18:31 00:58 05:52 WBC 10.53 (4.8-10.8) K/ul Hgb 8.0 L 8.8 L 8.6 L (14.0-18.0) g/dl Hct 27.3 L 26.1 L (40.1-51.0) % Plt Count 297 (130-400) K/uL 04/24/22 Range/Units 10:53 WBC (4.8-10.8) K/ul Hgb 9.2 L (14.0-18.0) g/dl Hct 28.8 L (40.1-51.0) % Plt Count (130-400) K/uL BMP 04/24/22 05:52 Sodium 144 Potassium 3.8 Chloride 115 H Carbon Dioxide 24 BUN 33 H D Creatinine 1.16 Glucose 97 Calcium 8.1 L Medications Administered Current Inpatient Medications Acetaminophen (Acetaminophen 325 Mg Tab) 650 mg PO Q4H PRN PRN Reason: Pain or Fever Stop: 05/22/22 10:16 Al Hydrox/Mg Hydrox/Simethicone (Aluminum/Magnesium Susp 30 Ml Udc) 15 ml PO Q4H PRN PRN Reason: Dyspepsia Stop: 05/22/22 10:16 Atorvastatin Calcium (Atorvastatin 40 Mg Tab) 40 mg PO QAM [facility] Stop: 05/23/22 08:59 Last Admin: 04/24/22 11:31 Dose: 40 mg Clopidogrel Bisulfate (Clopidogrel Bisulfate 75 Mg Tab) 75 mg PO QAM [facility] Stop: 05/22/22 15:59 Last Admin: 04/24/22 11:32 Dose: 75 mg Hydralazine HCl (Hydralazine Hcl 25 Mg Tab) 25 mg PO TID [facility] Stop: 05/23/22 20:59 Last Admin: 04/24/22 11:32 Dose: 25 mg Pantoprazole Sodium 40 mg/ (Dextrose) 100 mls @ 20 mls/hr IV Q5H [facility] Stop: 05/22/22 10:44 Last Admin: 04/24/22 12:31 Dose: 8 mg/hr, 20 mls/hr Potassium Chloride (K Tristin / Wtr) 10 meq in 100 mls @ 100 mls/hr IV Q1H [facility] Stop: 04/24/22 14:59 Last Admin: 04/24/22 13:26 Dose: 100 mls/hr Magnesium Sulfate/Dextrose (Magnesium Sulfate / D5w) 1 gm in 100 mls @ 50 mls/hr IV Q2H [facility] Stop: 04/24/22 14:59 Last Admin: 04/24/22 12:26 Dose: 50 mls/hr Losartan Potassium (Losartan Potassium 50 Mg Tab) [facility] Stop: 05/24/22 08:59 Last Admin: 04/24/22 11:32 Dose: 100 mg Magnesium Hydroxide (Magnesium Hydroxide Susp 30 Ml Udc) 30 ml PO Q12H PRN PRN Reason: Constipation Stop: 05/22/22 10:16 Melatonin (Melatonin 3 Mg Tab) 3 mg PO HS PRN PRN Reason: Sleep Stop: 05/24/22 00:36 Metoprolol Succinate (Metoprolol Succ 50mg Ext Rel Tab) 50 mg PO [facility] Stop: 05/23/22 08:59 Last Admin: 04/24/22 11:31 Dose: 50 mg Ondansetron HCl (Ondansetron Inj 2 Mg/Ml 2 Ml Vial) 4 mg IV Q6H PRN PRN Reason: Nausea And Vomiting Stop: 05/24/22 08:13 Last Admin: 04/24/22 08:24 Dose: 4 mg Polyethylene Glycol (Polyethylene (Miralax) 17 Gm Pack) 17 gm PO DAILY PRN PRN Reason: Constipation Stop: 05/22/22 10:16
[2022-04-24 17:17] LABS: Hematocrit (blood only) 29.9 % (40.1-51.0); Hemoglobin 9.3 g/dl (14.0-18.0)
[2022-04-24] MEDS ORDERED: ZOLPIDEM TARTRATE 5 MG TAB PO STA (20:20)
[2022-04-24] MEDS ORDERED: diphenhydrAMINE HCL 25 MG/10 ML UDC PO ONE (20:22)
[2022-04-25] MEDS: PANTOprazole 40 MG in DEXTROSE 5% 100 ML IV SCH (03:45)
[2022-04-25 06:40] LABS: Basophils # (auto) 0.08 K/uL (0-0.2); Basophils % (auto) 0.8 %; Eosinophils # (auto) 0.43 K/uL (0-0.50); Eosinophils % (auto) 4.4 %; Hematocrit (blood only) 26.7 % (40.1-51.0); Hemoglobin 8.5 g/dl (14.0-18.0); Immature Granulocytes # (auto) 0.05 K/uL (0.00-0.02); Immature Granulocytes % (auto) 0.5 %; Lymphocytes # (auto) 1.25 K/uL (1.2-3.4); Lymphocytes % (auto) 12.7 %; Mean Corpuscular Hemoglobin 28.5 pg (25.0-34.0); Mean Corpuscular Hgb Conc 31.8 g/dL (32.0-36.0); Mean Corpuscular Volume 89.6 fL (80.0-100.0); Mean Platelet Volume 10.5 fL (9.4-12.4); Monocytes # (auto) 1.09 K/uL (0.24-0.82); Neutrophils # (auto) 6.97 K/uL (1.4-6.5); Neutrophils % (auto) 70.6 %; Platelet Count 304 K/uL (130-400); RDW Coefficient of Variation 14.6 % (11.5-14.5); RDW Standard Deviation 47.3 fL (36.4-46.3); Red Blood Count 2.98 M/uL (4.63-6.08); White Blood Count 9.87 K/ul (4.8-10.8)
[2022-04-25 07:10] LABS: Calcium 7.9 mg/dl (8.5-10.1); Creatinine Clr Calc Pharmacy 46.6 ml/min; Est GFR (Non-African American) 59.6 ml/min; Magnesium 2.3 mg/dl (1.7-2.4); Phosphorus 3.1 mg/dl (2.5-4.9); Potassium 4.1 mmol/L (3.5-5.1)
[2022-04-25] MEDS: PANTOprazole 40 MG TAB PO SCH ×2 (09:34→20:36)
[2022-04-25] MEDS: CLOPIDOGREL BISULFATE 75 MG TAB PO SCH (09:34)
[2022-04-25] MEDS: ATORVASTATIN 40 MG TAB PO SCH (09:34)
[2022-04-25] MEDS: hydrALAZINE HCL 25 MG TAB PO SCH ×3 (09:34→20:35)
[2022-04-25] MEDS: METOPROLOL SUCC 50MG EXT REL TAB PO SCH (09:34)
--- NOTE | 2022-04-25 09:34 | Cardiology Progress Note ---
Date of Service April 25, 2022 Assessment & Plan (1) Acute upper gastrointestinal bleeding: (2) Lab test positive for detection of COVID-19 virus: (3) Hematemesis: (4) CAD (coronary atherosclerotic disease): (5) Stented coronary artery: Plan The patient is currently clinically stable. Slight drop in his hemoglobin to 8.5 overnight. No evidence of active bleeding at this time. He is out of isolation for COVID. Awaiting GIs recommendations. If bed needed in ICU, believe he can be transferred to telemetry unit. Admission and Anticipated Discharge Date Admission Date: April 22, 2022 Subjective The patient had an uneventful night. No nausea or vomiting. The patient did not have a bowel movement. No melena or hematemesis Review of Systems Review of Systems: Review of Systems: See HPI for pertinent positives. All other 10 point review of systems are negative. Physical Exam Physical Exam: General: no acute distress and stated age Head: normocephalic, no masses, lesions, tenderness or abnormalities Eyes: conjunctiva are pink and non-injected, sclera clear Neck: supple, no adenopathy, no bruits, normal jugular venous pulse, no hepatojugular reflux Chest: normal shape and normal respiratory effort Lungs: clear to auscultation and percussion Cardiac Exam: - regular rate & rhythm, no murmurs gallops or rubs - normal S1, normal S2 Pulses: 2(+) throughout Abdomen: abdomen soft, non-tender, no abnormal masses and no hepatosplenomegaly Musculoskeletal: no gait disturbance, no joint inflammation, no deforming arthritis Extremities: no edema and no cyanosis Neuro: grossly normal exam Results & Data ([facility]) Vital Signs (Past 12 Hours) Vital Signs Temp Pulse Resp BP Pulse Ox O2 Del Method 04/25/22 07:00 Room Air 04/25/22 07:00 66 04/25/22 04:00 66 27 H 93 04/25/22 03:00 59 L 22 92/43 L 93 04/25/22 02:00 65 21 94 04/25/22 01:00 64 17 95 04/25/22 00:00 84 26 H 93 04/24/22 23:10 76 20 133/46 L 93 04/24/22 22:34 59 L 18 112/47 L 95 04/24/22 23:40 57 L 04/24/22 23:11 36.5 C Laboratory Results Laboratory Results - last 24 hr 04/22/22 04/24/22 04/24/22 08:16 10:53 16:54 WBC RBC Hgb 9.2 L 9.3 L Hct 28.8 L 29.9 L MCV MCH MCHC RDW Std Deviation RDW Coeff of Nahun Plt Count MPV Immature Gran % (Auto) Neut % (Auto) Lymph % (Auto) Barton % (Auto) Eos % (Auto) Baso % (Auto) Neut # (Auto) Lymph # (Auto) Barton # (Auto) Eos # (Auto) Baso # (Auto) Immature Gran # (Auto) Sodium Potassium Chloride Carbon Dioxide Anion Gap BUN Creatinine Est Cr Clr Drug Dosing Est GFR ( Amer) Est GFR (Non-Af Amer) BUN/Creatinine Ratio Glucose POC Glucose Calcium Phosphorus Magnesium Troponin I High Sens Crossmatch See Detail 04/24/22 04/25/22 04/25/22 23:07 06:06 06:06 WBC 9.87 RBC 2.98 L Hgb 8.5 L Hct 26.7 L MCV 89.6 MCH 28.5 MCHC 31.8 L RDW Std Deviation 47.3 H RDW Coeff of Nahun 14.6 H Plt Count 304 MPV 10.5 Immature Gran % (Auto) 0.5 Neut % (Auto) 70.6 Lymph % (Auto) 12.7 Barton % (Auto) 11.0 Eos % (Auto) 4.4 Baso % (Auto) 0.8 Neut # (Auto) 6.97 H Lymph # (Auto) 1.25 Barton # (Auto) 1.09 H Eos # (Auto) 0.43 Baso # (Auto) 0.08 Immature Gran # (Auto) 0.05 H Sodium 140 Potassium 4.1 Chloride 112 H Carbon Dioxide 24 Anion Gap 4 BUN 22 Creatinine 1.16 Est Cr Clr Drug Dosing 46.6 Est GFR ( Amer) 69.0 Est GFR (Non-Af Amer) 59.6 BUN/Creatinine Ratio 19.0 Glucose 98 POC Glucose 108 H Calcium 7.9 L Phosphorus 3.1 Magnesium 2.3 Troponin I High Sens Crossmatch 04/25/22 04/25/22 06:06 06:13 WBC RBC Hgb Hct MCV MCH MCHC RDW Std Deviation RDW Coeff of Nahun Plt Count MPV Immature Gran % (Auto) Neut % (Auto) Lymph % (Auto) Barton % (Auto) Eos % (Auto) Baso % (Auto) Neut # (Auto) Lymph # (Auto) Barton # (Auto) Eos # (Auto) Baso # (Auto) Immature Gran # (Auto) Sodium Potassium Chloride Carbon Dioxide Anion Gap BUN Creatinine Est Cr Clr Drug Dosing Est GFR ( Amer) Est GFR (Non-Af Amer) BUN/Creatinine Ratio Glucose POC Glucose 105 H Calcium Phosphorus Magnesium Troponin I High Sens Pending Crossmatch Medications Administered Current Inpatient Medications Acetaminophen (Acetaminophen 325 Mg Tab) 650 mg PO Q4H PRN PRN Reason: Pain or Fever Stop: 05/22/22 10:16 Al Hydrox/Mg Hydrox/Simethicone (Aluminum/Magnesium Susp 30 Ml Udc) 15 ml PO Q4H PRN PRN Reason: Dyspepsia Stop: 05/22/22 10:16 Atorvastatin Calcium (Atorvastatin 40 Mg Tab) 40 mg PO [facility] Stop: 05/23/22 08:59 Last Admin: 04/24/22 11:31 Dose: 40 mg Clopidogrel Bisulfate (Clopidogrel Bisulfate 75 Mg Tab) 75 mg PO [facility] Stop: 05/22/22 15:59 Last Admin: 04/24/22 11:32 Dose: 75 mg Hydralazine HCl (Hydralazine Hcl 25 Mg Tab) 25 mg PO TID [facility] Stop: 05/23/22 20:59 Last Admin: 04/24/22 20:08 Dose: 25 mg Losartan Potassium (Losartan Potassium 50 Mg Tab) 100 mg PO [facility] Stop: 05/24/22 08:59 Last Admin: 04/24/22 11:32 Dose: 100 mg Magnesium Hydroxide (Magnesium Hydroxide Susp 30 Ml Udc) 30 ml PO Q12H PRN PRN Reason: Constipation Stop: 05/22/22 10:16 Melatonin (Melatonin 3 Mg Tab) 3 mg PO HS PRN PRN Reason: Sleep Stop: 05/24/22 00:36 Metoprolol Succinate (Metoprolol Succ 50mg Ext Rel Tab) 50 mg PO [facility] Stop: 05/23/22 08:59 Last Admin: 04/24/22 11:31 Dose: 50 mg Ondansetron HCl (Ondansetron Inj 2 Mg/Ml 2 Ml Vial) 4 mg IV Q6H PRN PRN Reason: Nausea And Vomiting Stop: 05/24/22 08:13 Last Admin: 04/24/22 08:24 Dose: 4 mg Pantoprazole Sodium (Pantoprazole 40 Mg Tab) 40 mg PO BID [facility] Stop: 05/25/22 08:59 Polyethylene Glycol (Polyethylene (Miralax) 17 Gm Pack) 17 gm PO DAILY PRN PRN Reason: Constipation Stop: 05/22/22 10:16
[2022-04-25] MEDS: LOSARTAN POTASSIUM 50 MG TAB PO SCH (09:35)
--- NOTE | 2022-04-25 10:49 | Communication Note ---
Date of Service: April 25, 2022 Pt/family asked to speak w GI as had questions for GI. 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 " At how low the hemoglobin level should the family reconsider transferring to [place]?" - Unable to answer the question certainly if his hemoglobin dropped 2 points more importantly if he has any gross GI bleeding then transferred to [place] would again be clearly indicated, and again would be urgent. "At what Hb level does he need another transfusion? - We will be decided by primary hospitalist and ecommerce analyst. " Can he eat?" -May have a liquid diet. " Can he be discharged today?" -From a GI standpoint would need 1 more day to verify no gross GI bleeding. However, more likely to need to stay longer from a cardiac standpoint - unable to answer that..
[2022-04-25 13:08] LABS: Hematocrit (blood only) 30.7 % (40.1-51.0); Hemoglobin 9.8 g/dl (14.0-18.0)
--- NOTE | 2022-04-25 15:20 | Hospitalist Progress Note ---
Date of Service April 25, 2022 Assessment & Plan (1) GIB (gastrointestinal bleeding): (2) Hematemesis: (3) Cardiac arrest with ventricular fibrillation: (4) Hypertension: (5) Hyperlipidemia: (6) Anxiety: Plan 81-year-old gentleman with PMH of recent NSTEMI last week status post stent within the distal PDA who had an arrest before the stent was placed but then made a full recovery came in with complaints of abdominal pain and vomiting blood in the morning of the day of arrival.He has past history of ibuprofen [atleast 2 tablets a day] use but claims that he had not used since after discharge from his last admission. He is being managed for the following: Likely upper GIB Hematemesis: Recent H/o NSTEMI s/p stent c/b VF arrest [see above] h/o NSAID use [see above] -Recent admission 04/11-04/15 for NSTEMI s/p stent Cx/b VF arrest before stent was placed but then made a full recovery -Pt presented w/ gagging w/ hematemesis x 2 on the day of arrival, h/o NSAIDs use until recent past. On DAPT d/t stenting currently. -Baseline Hgb from 03/23/2022: 14.5; admitting Hb in mid 9's. -D/w cardio, ok to dc aspirin in light of GI bleed, c/w plavix. -Per GI, no EGD scope d/t high risk, since Hb has been stable iv PPI for now w/ close monitoring, ok for clears. -family doesn't want transfer at this point, pt is clinically stable now, but if unstable w/ either further bleeding or chest pain, transfer is indicated. - hgb stable overnight, no reccurent hematemesis - continue PPI IV drip ending tonight - PPI BID starting 04/25/2022 Recent h/o Cardiac Arrest with Ventricular fibrillation: during stenting for NSTEMI, started on DAPT, cards on board, dc aspirin, c/w plavix. HTN: takes metoprolol, cozaar and hydralazine, resume w/ parameters. Caution in the light of GI bleed l/t hypotension. Hyperlipidemia: c/w statin. Full code DVT Px: SCDs, re- gi bleed Dispo: to be monitored for 1 more day, initiate transfer process if patient is unstable clinically [see above]. Admission and Anticipated Discharge Date Admission Date: April 22, 2022 Subjective The patient is a 81 year old man with pmh [place] s/p PCI (03/2022), s/p Cardiac arrest, HTN, HLD, anxiety who presetned with hematemesis and drop in Hgb. Patient high risk for EGD given recent [place] and cardiac arrest, recommended transfer to tertiary care center but patient declined. Cardiology consulted and holding aspirin, continue plavix. PPI drip x72 hours followed by PPI BID x2 weeks. Monitored for recurrent GIB. Patient denies any episodes of hematemesis, melena, chest pain, light headedness, dizziness, bloody stools, abdominal pain, n/v/d. Review of Systems Review of Systems: Neuro: (-) Falls, trauma, slurred speech HEENT: (-) MOSES, dizziness, dysphagia, visual or auditory changes CV: (-) CP, palpitations, swelling Resp: (-) SOB GI: (-) heme emesis (-) appetite changes, N/D, bowel changes : (-) urinary changes Skin: (-) rashes Psych: (-) anxiety currently, depression Physical Exam Constitutional: WD/WN, vitals as above Eyes: PERRL, conjunctivae normal, anicteric sclerae ENMT: external ear and nose normal, oropharynx normal Neck: trachea midline, no thyromegaly Respiratory: normal respiratory effort, lungs clear to auscultation Cardiovascular: RRR, no murmur, no edema Gastrointestinal (Abdomen): normal bowel sounds, soft, nontender, no hepatosplenomegaly Musculoskeletal: no cyanosis or clubbing, extremities motor strength 5/5 Skin: no rashes, warm and dry Neurologic: patellar DTR's 2+ bilat, sensation intact and PERRL, EOMI, accommodation nl, no face palsy, no dysarthria Psychiatric: A+Ox3, euthymic affect Results & Data Results & Data ([facility]) Vital Signs (Past 12 Hours) Vital Signs Temp Pulse Resp BP Pulse Ox O2 Del Method 04/25/22 11:26 59 L 18 130/64 96 Room Air 04/25/22 10:00 65 23 94 04/25/22 09:00 36.8 C 61 17 160/72 H 94 04/25/22 08:00 59 L 24 94 04/25/22 07:41 51 L 21 94 04/25/22 07:02 52 L 20 94 04/25/22 07:00 54 L 20 95 04/25/22 06:00 52 L 22 95 04/25/22 05:00 57 L 12 93 04/25/22 07:00 Room Air 04/25/22 07:00 66 04/25/22 04:00 66 27 H 93 Laboratory Results Short CBC 04/24/22 04/25/22 04/25/22 Range/Units 16:54 06:06 12:53 WBC 9.87 (4.8-10.8) K/ul Hgb 9.3 L 8.5 L 9.8 L (14.0-18.0) g/dl Hct 29.9 L 26.7 L 30.7 L (40.1-51.0) % Plt Count 304 (130-400) K/uL BMP 04/25/22 06:06 Sodium 140 Potassium 4.1 Chloride 112 H Carbon Dioxide 24 BUN 22 Creatinine 1.16 Glucose 98 Calcium 7.9 L Medications Administered Current Inpatient Medications Acetaminophen (Acetaminophen 325 Mg Tab) 650 mg PO Q4H PRN PRN Reason: Pain or Fever Stop: 05/22/22 10:16 Al Hydrox/Mg Hydrox/Simethicone (Aluminum/Magnesium Susp 30 Ml Udc) 15 ml PO Q4H PRN PRN Reason: Dyspepsia Stop: 05/22/22 10:16 Atorvastatin Calcium ([facility] 40 Mg Tab) [facility] [place]: 05/23/22 08:59 Last Admin: 04/25/22 09:34 Dose: 40 mg Clopidogrel Bisulfate (Clopidogrel Bisulfate 75 Mg Tab) 75 mg PO QAM [facility] Stop: 05/22/22 15:59 Last Admin: 04/25/22 09:34 Dose: 75 mg Hydralazine HCl (Hydralazine Hcl 25 Mg Tab) 25 mg PO TID [facility] Stop: 05/23/22 20:59 Last Admin: 04/25/22 13:26 Dose: 25 mg Losartan Potassium (Losartan Potassium 50 Mg Tab) [facility] [place]: 05/24/22 08:59 Last Admin: 04/25/22 09:35 Dose: 100 mg Magnesium Hydroxide (Magnesium Hydroxide Susp 30 Ml Udc) 30 ml PO Q12H PRN PRN Reason: Constipation Stop: 05/22/22 10:16 Melatonin (Melatonin 3 Mg Tab) 3 mg PO HS PRN PRN Reason: Sleep Stop: 05/24/22 00:36 Metoprolol Succinate (Metoprolol Succ 50mg Ext Rel Tab) 50 mg PO QAM [facility] Stop: 05/23/22 08:59 Last Admin: 04/25/22 09:34 Dose: 50 mg Ondansetron HCl (Ondansetron Inj 2 Mg/Ml 2 Ml Vial) 4 mg IV Q6H PRN PRN Reason: Nausea And Vomiting Stop: 05/24/22 08:13 Last Admin: 04/24/22 08:24 Dose: 4 mg Pantoprazole Sodium (Pantoprazole 40 Mg Tab) 40 mg PO BID [facility] Stop: 05/25/22 08:59 Last Admin: 04/25/22 09:34 Dose: 40 mg Polyethylene Glycol (Polyethylene (Miralax) 17 Gm Pack) 17 gm PO DAILY PRN PRN Reason: Constipation Stop: 05/22/22 10:16
[2022-04-25] MEDS ORDERED: diphenhydrAMINE Capsule 25 MG CAP PO PRN (20:07)
[2022-04-26] MEDS: LOSARTAN POTASSIUM 50 MG TAB PO SCH (07:40)
[2022-04-26] MEDS: hydrALAZINE HCL 25 MG TAB PO SCH (07:44)
[2022-04-26] MEDS: CLOPIDOGREL BISULFATE 75 MG TAB PO SCH (07:44)
[2022-04-26] MEDS: PANTOprazole 40 MG TAB PO SCH (07:44)
[2022-04-26] MEDS: METOPROLOL SUCC 50MG EXT REL TAB PO SCH (07:45)
[2022-04-26] MEDS: ATORVASTATIN 40 MG TAB PO SCH (07:45)
[2022-04-26 08:01] LABS: Hematocrit (blood only) 29.1 % (40.1-51.0); Hemoglobin 9.5 g/dl (14.0-18.0); Mean Corpuscular Hemoglobin 28.7 pg (25.0-34.0); Mean Corpuscular Hgb Conc 32.6 g/dL (32.0-36.0); Mean Corpuscular Volume 87.9 fL (80.0-100.0); Mean Platelet Volume 10.6 fL (9.4-12.4); Platelet Count 339 K/uL (130-400); RDW Coefficient of Variation 14.5 % (11.5-14.5); RDW Standard Deviation 45.8 fL (36.4-46.3); Red Blood Count 3.31 M/uL (4.63-6.08)
--- NOTE | 2022-04-26 09:08 | Cardiology Progress Note ---
Date of Service April 26, 2022 Assessment & Plan (1) Acute upper gastrointestinal bleeding: (2) Lab test positive for detection of COVID-19 virus: (3) Hematemesis: (4) CAD (coronary atherosclerotic disease): (5) Stented coronary artery: Plan The patient is clinically stable. Hemoglobin today is 9.5. He has had no further evidence of GI bleeding for several days. From a cardiology standpoint, if the GI service feels his diet can be advanced and his counts remain stable. Possible discharge for tomorrow. Admission and Anticipated Discharge Date Admission Date: April 22, 2022 Subjective The patient had an uneventful night. No hematemesis or melena. No abdominal pain. He denies chest pain or shortness of breath. Review of Systems Review of Systems: Review of Systems: See HPI for pertinent positives. All other 10 point review of systems are negative. Physical Exam Physical Exam: General: no acute distress and stated age Head: normocephalic, no masses, lesions, tenderness or abnormalities Eyes: conjunctiva are pink and non-injected, sclera clear Neck: supple, no adenopathy, no bruits, normal jugular venous pulse, no hepatojugular reflux Chest: normal shape and normal respiratory effort Lungs: clear to auscultation and percussion Cardiac Exam: - regular rate & rhythm, no murmurs gallops or rubs - normal S1, normal S2 Pulses: 2(+) throughout Abdomen: abdomen soft, non-tender, no abnormal masses and no hepatosplenomegaly Musculoskeletal: no gait disturbance, no joint inflammation, no deforming arthritis Extremities: no edema and no cyanosis Neuro: grossly normal exam Results & Data ([facility]) Vital Signs (Past 12 Hours) Vital Signs Temp Pulse Pulse Resp BP Pulse Ox O2 Del Method 04/26/22 07:42 36.6 C 72 19 176/66 H 95 Room Air 04/26/22 07:09 59 L 04/26/22 03:02 36.8 C 61 19 133/62 96 Room Air 04/25/22 22:15 64 04/25/22 23:33 36.6 C 71 19 138/72 98 Room Air Laboratory Results Laboratory Results - last 24 hr 04/25/22 04/25/22 04/26/22 06:06 12:53 07:41 WBC 10.60 RBC 3.31 L Hgb 9.8 L 9.5 L Hct 30.7 L 29.1 L MCV 87.9 MCH 28.7 MCHC 32.6 RDW Std Deviation 45.8 RDW Coeff of Nahun 14.5 Plt Count 339 MPV 10.6 Troponin I High Sens 63.6 H* D Medications Administered Current Inpatient Medications Acetaminophen (Acetaminophen 325 Mg Tab) 650 mg PO Q4H PRN PRN Reason: Pain or Fever Stop: 05/22/22 10:16 Al Hydrox/Mg Hydrox/Simethicone (Aluminum/Magnesium Susp 30 Ml Udc) 15 ml PO Q4H PRN PRN Reason: Dyspepsia Stop: 05/22/22 10:16 Atorvastatin Calcium (Atorvastatin 40 Mg Tab) 40 mg PO [facility] Stop: 05/23/22 08:59 Last Admin: 04/26/22 07:45 Dose: 40 mg Clopidogrel Bisulfate (Clopidogrel Bisulfate 75 Mg Tab) 75 mg PO [facility] Stop: 05/22/22 15:59 Last Admin: 04/26/22 07:44 Dose: 75 mg Diphenhydramine HCl (Diphenhydramine Capsule 25 Mg Cap) 25 mg PO HS PRN PRN Reason: insomina Stop: 05/25/22 20:06 Last Admin: 04/25/22 21:59 Dose: 25 mg Hydralazine HCl (Hydralazine Hcl 25 Mg Tab) 25 mg PO TID [facility] Stop: 05/23/22 20:59 Last Admin: 04/26/22 07:44 Dose: 25 mg Losartan Potassium (Losartan Potassium 50 Mg Tab) 100 mg PO [facility] Stop: 05/24/22 08:59 Last Admin: 04/26/22 07:40 Dose: 100 mg Magnesium Hydroxide (Magnesium Hydroxide Susp 30 Ml Udc) 30 ml PO Q12H PRN PRN Reason: Constipation Stop: 05/22/22 10:16 Melatonin (Melatonin 3 Mg Tab) 3 mg PO HS PRN PRN Reason: Sleep Stop: 05/24/22 00:36 Metoprolol Succinate (Metoprolol Succ 50mg Ext Rel Tab) 50 mg PO [facility] Stop: 05/23/22 08:59 Last Admin: 04/26/22 07:45 Dose: 50 mg Ondansetron HCl (Ondansetron Inj 2 Mg/Ml 2 Ml Vial) 4 mg IV Q6H PRN PRN Reason: Nausea And Vomiting Stop: 05/24/22 08:13 Last Admin: 04/24/22 08:24 Dose: 4 mg Pantoprazole Sodium (Pantoprazole 40 Mg Tab) 40 mg PO BID [facility] Stop: 05/25/22 08:59 Last Admin: 04/26/22 07:44 Dose: 40 mg Polyethylene Glycol (Polyethylene (Miralax) 17 Gm Pack) 17 gm PO DAILY PRN PRN Reason: Constipation Stop: 05/22/22 10:16 Last Admin: 04/26/22 07:53 Dose: 17 gm
--- NOTE | 2022-04-26 10:11 | Hospitalist Progress Note ---
Date of Service April 26, 2022 Assessment & Plan (1) GIB (gastrointestinal bleeding): (2) Hematemesis: (3) Cardiac arrest with ventricular fibrillation: (4) Hypertension: (5) Hyperlipidemia: (6) Anxiety: Plan 81-year-old gentleman with PMH of recent NSTEMI last week status post stent within the distal PDA who had an arrest before the stent was placed but then made a full recovery came in with complaints of abdominal pain and vomiting blood in the morning of the day of arrival.He has past history of ibuprofen [atleast 2 tablets a day] use but claims that he had not used since after discharge from his last admission. He is being managed for the following: Likely upper GIB Hematemesis: Recent H/o NSTEMI s/p stent c/b VF arrest [see above] h/o NSAID use [see above] -Recent admission 04/11-04/15 for NSTEMI s/p stent Cx/b VF arrest before stent was placed but then made a full recovery -Pt presented w/ gagging w/ hematemesis x 2 on the day of arrival, h/o NSAIDs use until recent past. On DAPT d/t stenting currently. -Baseline Hgb from 03/23/2022: 14.5; admitting Hb in mid 9's. -D/w cardio, ok to dc aspirin in light of GI bleed, c/w plavix. -Per GI, no EGD scope d/t high risk, since Hb has been stable iv PPI for now w/ close monitoring, ok for clears. -family doesn't want transfer at this point, pt is clinically stable now, but if unstable w/ either further bleeding or chest pain, transfer is indicated. - hgb stable overnight, no reccurent hematemesis or melena - PPI BID started 04/25/2022 - advance to full diet today Recent h/o Cardiac Arrest with Ventricular fibrillation: during stenting for NSTEMI, started on DAPT, cards on board, dc aspirin, c/w plavix. HTN: takes metoprolol, cozaar and hydralazine, resume w/ parameters. Caution in the light of GI bleed l/t hypotension. Hyperlipidemia: c/w statin. Full code DVT Px: SCDs, re- gi bleed Dispo: continue monitoring Admission and Anticipated Discharge Date Admission Date: April 22, 2022 Subjective The patient is a 81 year old man with pmh [place] s/p PCI (03/2022), s/p Cardiac arrest, HTN, HLD, anxiety who presetned with hematemesis and drop in Hgb. Patient high risk for EGD given recent [place] and cardiac arrest, recommended transfer to tertiary care center but patient declined. Cardiology consulted and holding aspirin, continue plavix. PPI drip x72 hours followed by PPI BID x2 weeks. Monitored for recurrent GIB. Patient denies any episodes of hematemesis, melena, chest pain, light headedness, dizziness, bloody stools, abdominal pain, n/v/d.Hgb today 9.5 - stable Review of Systems Review of Systems: Neuro: (-) Falls, trauma, slurred speech HEENT: (-) MOSES, dizziness, dysphagia, visual or auditory changes CV: (-) CP, palpitations, swelling Resp: (-) SOB GI: (-) heme emesis (-) appetite changes, N/D, bowel changes : (-) urinary changes Skin: (-) rashes Psych: (-) anxiety currently, depression Physical Exam Constitutional: WD/WN, vitals as above Eyes: PERRL, conjunctivae normal, anicteric sclerae ENMT: external ear and nose normal, oropharynx normal Neck: trachea midline, no thyromegaly Respiratory: normal respiratory effort, lungs clear to auscultation Cardiovascular: RRR, no murmur, no edema Gastrointestinal (Abdomen): normal bowel sounds, soft, nontender, no hepatosplenomegaly Musculoskeletal: no cyanosis or clubbing, extremities motor strength 5/5 Skin: no rashes, warm and dry Neurologic: patellar DTR's 2+ bilat, sensation intact and PERRL, EOMI, accomm odation nl, no face palsy, no dysarthria Psychiatric: A+Ox3, euthymic affect Results & Data Results & Data ([facility]) Vital Signs (Past 12 Hours) Vital Signs Temp Pulse Pulse Resp BP Pulse Ox O2 Del Method 04/26/22 09:19 36.5 C 59 L 16 120/56 L 94 Room Air 04/26/22 07:42 36.6 C 72 19 176/66 H 95 Room Air 04/26/22 07:09 59 L 04/26/22 03:02 36.8 C 61 19 133/62 96 Room Air 04/25/22 22:15 64 04/25/22 23:33 36.6 C 71 19 138/72 98 Room Air Laboratory Results Short CBC 04/25/22 04/26/22 Range/Units 12:53 07:41 WBC 10.60 (4.8-10.8) K/ul Hgb 9.8 L 9.5 L (14.0-18.0) g/dl Hct 30.7 L 29.1 L (40.1-51.0) % Plt Count 339 (130-400) K/uL Medications Administered Current Inpatient Medications Acetaminophen (Acetaminophen 325 Mg Tab) 650 mg PO Q4H PRN PRN Reason: Pain or Fever Stop: 05/22/22 10:16 Al Hydrox/Mg Hydrox/Simethicone (Aluminum/Magnesium Susp 30 Ml Udc) 15 ml PO Q4H PRN PRN Reason: Dyspepsia Stop: 05/22/22 10:16 Atorvastatin Calcium ([facility] 40 Mg Tab) [facility] [place]: 05/23/22 08:59 Last Admin: 04/26/22 07:45 Dose: 40 mg Clopidogrel Bisulfate (Clopidogrel Bisulfate 75 Mg Tab) 75 mg PO QAM [facility] Stop: 05/22/22 15:59 Last Admin: 04/26/22 07:44 Dose: 75 mg Diphenhydramine HCl (Diphenhydramine Capsule 25 Mg Cap) 25 mg PO HS PRN PRN Reason: insomina Stop: 05/25/22 20:06 Last Admin: 04/25/22 21:59 Dose: 25 mg Hydralazine HCl (Hydralazine Hcl 25 Mg Tab) 25 mg PO TID [facility] Stop: 05/23/22 20:59 Last Admin: 04/26/22 07:44 Dose: 25 mg Losartan Potassium (Losartan Potassium 50 Mg Tab) 100 mg PO QAM [facility] Stop: 05/24/22 08:59 Last Admin: 04/26/22 07:40 Dose: 100 mg Magnesium Hydroxide (Magnesium Hydroxide Susp 30 Ml Udc) 30 ml PO Q12H PRN PRN Reason: Constipation Stop: 05/22/22 10:16 Melatonin (Melatonin 3 Mg Tab) 3 mg PO HS PRN PRN Reason: Sleep Stop: 05/24/22 00:36 Metoprolol Succinate (Metoprolol Succ 50mg Ext Rel Tab) [facility] [place]: 05/23/22 08:59 Last Admin: 04/26/22 07:45 Dose: 50 mg Ondansetron HCl (Ondansetron Inj 2 Mg/Ml 2 Ml Vial) 4 mg IV Q6H PRN PRN Reason: Nausea And Vomiting Stop: 05/24/22 08:13 Last Admin: 04/24/22 08:24 Dose: 4 mg Pantoprazole Sodium (Pantoprazole 40 Mg Tab) 40 mg PO BID [facility] Stop: 05/25/22 08:59 Last Admin: 04/26/22 07:44 Dose: 40 mg Polyethylene Glycol (Polyethylene (Miralax) 17 Gm Pack) 17 gm PO DAILY PRN PRN Reason: Constipation Stop: 05/22/22 10:16 Last Admin: 04/26/22 07:53 Dose: 17 gm Sennosides (Senna 8.6 Mg Tab) 17.2 [facility] [place]: 05/26/22 10:14
[2022-04-26] MEDS ORDERED: SENNA 8.6 MG TAB PO SCH (10:15)
--- NOTE | 2022-04-26 13:23 | Discharge Summary ---
Date of Service April 26, 2022 Admission HPI Per Admitting Provider Mr. Camron Morgan is a 81 year old Male who presented to the [facility] twice this morning with epigastric discomfort and hematemesis. Initially he came in with epigastric discomfort and anxiety. 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 When they arrived home, she reports that he was ashen potts and incredible weak; so they returned to the ED. Mr. Morgan was a recent admission from 04/11-04/15 as a heart alert s/p posterior inferior NSTEMI with VF arrest s/p PCI with 100% occlusion and stent placement to the [facility]. He received one shock and Amiodarone. At that time he was started on ASA and Plavix for dual antiplatelet therapy. An ECHO was performed at that time with an EF of 36%. He has tested positive for COVID-19; however, is day #11 and unlikely to require airborne isolation precaution. Additional PMH includes Juarez's esophagus, AAA, CAD, HLD, HTN, and AMI. Camron denies dizziness, CP, palpitations, lower back pain, SOB, bloody stools, urinary changes, skin changes/rashes. Patient will be admitted under observation for further management and evaluation. Please see A/P for further details. Admission Exam Per Admitting Provider Neuro: AAOx4, PERRLA, no aphagia, memory changes, CNII-XII grossly intact HEENT: head normocephalic, moist mucus membranes CV: S1/S2, (+) Murmur (-) G/R, (-) edema, cap refill < 3 seconds Resp: Lungs CTA in all [place]. On RA GI: Abdomen S/NT/ND, Ax4 bowel sounds, (-) CVA tenderness Musculoskeletal: 5/5 B/L UE strength, 5/5 B/L LE strength. No gait disturbance Skin: (-) rashes , (-) erythema. Psych: euthymic mood Principal Diagnosis hematemesis Discharge Exam Constitutional WD/WN, vitals as above Eyes PERRL, conjunctivae normal, anicteric sclerae ENMT external ear and nose normal, oropharynx normal Neck trachea midline, no thyromegaly Respiratory normal respiratory effort, lungs clear to auscultation Cardiovascular RRR, no murmur, no edema Gastrointestinal (Abdomen) normal bowel sounds, soft, nontender, no hepatosplenomegaly Musculoskeletal no cyanosis or clubbing, extremities motor strength 5/5 Skin no rashes, warm and dry Neurologic patellar DTR's 2+ bilat, sensation intact and PERRL, EOMI, accommodation nl, no face palsy, no dysarthria Psychiatric A+Ox3, euthymic affect Discharge Data Allergies Allergy/AdvReac Type Severity Reaction Status Date / Time Penicillins Allergy Intermediate HANDS Verified 04/10/22 23:28 BECAME ITCHY Consultations 04/22/22 09:39 ED Decision to Admit Stat 04/22/22 10:17 Consult Gastroenterology Routine 04/22/22 12:54 Consult Cardiology Routine 04/24/22 00:45 Consult Glass Maker Routine Procedures Performed Operation Date: 04/23/22 16:30 <No data on this case meets the specified criteria> Hospital Course (1) GIB (gastrointestinal bleeding): (2) Hematemesis: (3) Cardiac arrest with ventricular fibrillation: (4) Hypertension: (5) Hyperlipidemia: (6) Anxiety: Plan 81-year-old gentleman with PMH of recent NSTEMI last week status post stent within the distal PDA who had an arrest before the stent was placed but then made a full recovery came in with complaints of abdominal pain and vomiting blood in the morning of the day of arrival.He has past history of ibuprofen [atleast 2 tablets a day] use but claims that he had not used since after discharge from his last admission. He is being managed for the following: Likely upper GIB Hematemesis: Recent H/o NSTEMI s/p stent c/b VF arrest [see above] h/o NSAID use [see above] -Recent admission 04/11-04/15 for NSTEMI s/p stent Cx/b VF arrest before stent was placed but then made a full recovery -Pt presented w/ gagging w/ hematemesis x 2 on the day of arrival, h/o NSAIDs use until recent past. On DAPT d/t stenting currently. -Baseline Hgb from 03/23/2022: 14.5; admitting Hb in mid 9's. -D/w cardio, ok to dc aspirin in light of GI bleed, c/w plavix. -Per GI, no EGD scope d/t high risk, since Hb has been stable iv PPI for now w/ close monitoring, ok for clears. -family doesn't want transfer at this point, pt is clinically stable now, but if unstable w/ either further bleeding or chest pain, transfer is indicated. - hgb stable overnight, no reccurent hematemesis or melena - PPI BID started 04/25/2022 - advance to full diet - tolerated well - discharge 04/26/2022 with close GI and Cardiology follow up Recent h/o Cardiac Arrest with Ventricular fibrillation: during stenting for NSTEMI, started on DAPT, cards on board, dc aspirin, c/w plavix. HTN: takes metoprolol, cozaar and hydralazine, resume w/ parameters. Caution in the light of GI bleed l/t hypotension. Hyperlipidemia: c/w statin. Full code DVT Px: SCDs, re- gi bleed Dispo: continue monitoring Total Time Total Time Spent Total Time Spent (In Minutes): 25 Total Time Includes: Examination of the Patient, Discharge Planning and Medication Reconciliation Discharge Plan Discharge Items Patient Disposition: Home - Self-Care Reason For Visit: HEMATEMESIS Discharge Diagnosis: GI bleed Activity: Resume your previous activity Non-emergency contact: Primary Care Provider, Expanding Machine Operator and Appeals Manager Call non-emergency contact if: you have any medication questions and your symptoms worsen Follow-up/Referrals: Olimpia Bridges CRNP [Nurse Practitioner] - (The [facility] Gastroenterology office will call you to schedule a follow up appointment. [address] [place] [place] [address] ) Sedrick Berumen DO [Expanding Machine Operator] - ([facility] Cardiology office will call you to schedule a follow up appointment. [address] [place] [address] ) PCP,NO [Primary Care Provider] - Diet: Heart Healthy Addtl Attending Provider Instructions: You were admitted for vomiting blood likely from an upper GI source, like your stomach. You were seen by Cardiology and GI and they recommended an upper endoscopy but because of your recent heart attach and stent placement on blood thinners, you were considered high risk and they recommended transfer to another institution that had the appropriate services for your care but this was not done on request of you and your family. You blood thinners were adjusted so that you stopped aspirin and continued Plavix. You received a blood transfusion and were started on an acid fuel distribution system operator in the IV for 72 hours, then switched to pill form to take 40mg pantoprazole by mouth 2x/day for 2 weeks. You will likely continue pantoprazole 40mg daily after that - follow guidance of your GI doctor on follow up. You remained stable and your hemoglobin remained stable throughout the rest of your stay. You should follow up [place] with GI and Cardiology to further manage this source of bleeding for definitive evaluation with upper endoscopy with GI. Pending Studies at Discharge: No Stand-Alone Forms: My [facility], Smoking Cessation Medications and DC Order Prescriptions: New losartan 50 mg Tablet 100 mg PO QAM Qty: 30 0RF pantoprazole 40 mg Tablet,Delayed Release (Dr/Ec) 40 mg PO BID Qty: 60 0RF sennosides [Senokot] 8.6 mg Tablet 17.2 mg PO QAM Qty: 30 0RF polyethylene glycol 3350 [Miralax] 17 gram Powder In Packet 17 g PO DAILY PRN (Reason: constipation) Qty: 30 0RF melatonin 3 mg Tablet 3 mg PO HS PRN (Reason: sleep) Qty: 30 0RF Continued calcium carbonate [Tums] 200 mg calcium (500 mg) Tablet,Chewable 400 mg PO DIRECTED PRN (Reason: JUAREZ'S SYNDROME/HEARTBURN/INDIGESTION) clopidogrel 75 mg Tablet 75 mg PO QAM 30 Days Qty: 30 2RF atorvastatin 40 mg Tablet 40 mg PO QAM 30 Days Qty: 30 2RF hydralazine 25 mg Tablet 25 mg PO TID Qty: 90 2RF metoprolol succinate 50 mg Tablet Extended Release 24 Hr 50 mg PO QAM 30 Days Qty: 30 2RF Discontinued losartan 50 mg Tablet 100 mg PO QAM 30 Days Qty: 60 2RF aspirin 81 mg Tablet,Delayed Release (Dr/Ec) 81 mg PO QAM 30 Days Qty: 30 2RF Discharge Orders: Discharge Order (Routine); Ordered 04/26/22 Ordered By: Thierry Ramirez Admission Data Admit Date/Time: 04/22/22 10:17 Attending Provider: Thierry Ramirez Admit Provider: Rafaela Padilla Primary Care Provider: PCP,NO Other Providers: Rafaela Padilla ; Olimpia Bridges ; Andres Morton ; Andrez Orozco ; Berry Johnson ; Cyrus Gaytan ; Sedrick Berumen ; Deshawn Mora ; Dana Richards ; Marietta Villegas ; Nevin Jack ; Maicol Veloz ; Javi Barrios Other Interventions: Discharge Summary Assessment (RN) Last Done: 04/26/22 11:30
== END 2022-04-26 12:25 | disposition home or self-care (01) | DRG 377 ==
LOC: ED 07:38 → EDINP 07:38 → OBSVTOIN 10:17 → SUATTDRO 10:17 → 2N 20:44 → 2E 04-23 14:51 → 1E 04-23 21:14 → 2W 04-25 11:14
DX: F41.9 Anxiety disorder, unspecified; I25.10 Atherosclerotic heart disease of native coronary artery without angina pectoris; I25.2 Old myocardial infarction; R11.0 Nausea; I21.4 Non-ST elevation (NSTEMI) myocardial infarction; Z86.74 Personal history of sudden cardiac arrest; U07.1 COVID-19; Z88.0 Allergy status to penicillin; Z95.5 Presence of coronary angioplasty implant and graft; E78.5 Hyperlipidemia, unspecified; D62 Acute posthemorrhagic anemia; Z79.01 Long term (current) use of anticoagulants; G47.09 Other insomnia; K92.2 Gastrointestinal hemorrhage, unspecified; I10 Essential (primary) hypertension; Z79.899 Other long term (current) drug therapy; Z79.82 Long term (current) use of aspirin